=== PATIENT | female | born 1975 | race Caucasian/White ===

== ENCOUNTER 2019-02-26 09:27 | Emergency (ER) | payer OTHER ==
[2019-02-26 10:26] LABS: Basophils % 0.6 % (0-1.3); Eosinophils % 3.9 % (0-4.4); Hematocrit 45.2 % (36.0-45.0); MPV 8.7 fL (7.6-11.3); Monocytes % 6.3 % (3.3-12.3); RBC Red Blood Cell Count 5.11 M/uL (3.86-4.86)
[2019-02-26 10:30] LABS: Protime INR 0.95
[2019-02-26 10:46] LABS: ALT/SGPT 36 U/L (12-78); AST/SGOT 22 U/L (15-37); Albumin 4.1 g/dL (3.4-5.0); Alkaline Phosphatase 47 U/L (45-117); BUN Blood Urea Nitrogen 10 mg/dL (7-18); Bicarbonate 28 mmol/L (21-32); Bilirubin Direct 0.1 mg/dL (0-0.2); Bilirubin Total 0.6 mg/dL (0.2-1.0); Glucose Level 113 mg/dL (74-106); Magnesium 2.1 mg/dL (1.8-2.4); NT PRO-BNP 73 pg/mL (<125); Potassium 3.9 mmol/L (3.5-5.1); Protein, Total 7.5 g/dL (6.4-8.2); Sodium Level 141 mmol/L (136-145); Troponin (Emerg Dept Use Only) < 0.02 ng/mL (0.0-0.045)
--- NOTE | 2019-02-26 11:05 | RAD REPORT ---
EXAM DESCRIPTION: CT - Head Brain Wo Cont - 02/26/2019 10:28 am CLINICAL HISTORY: Headache, hypertension COMPARISON: None. TECHNIQUE: Axial 5 mm thick images of the head were obtained without IV contrast. All CT scans are performed using dose optimization technique as appropriate and may include automated exposure control or mA/KV adjustment according to patient size. FINDINGS: No mass lesion is present. No mass effect, edema or shift of midline structures. No acute cortical based infarction identifiable. Patient has bilateral basal ganglia mineralization. Findings are asymmetrically prominent on the left. There is a 3 millimeter area of hyperdensity (52 Hounsfield units) present at the left basal ganglia. The attenuation value is in the range of acute blood. Soler fransisco, basal ganglia mineralization can have a low attenuation value. Asymmetric basal ganglia calcific ation would be much more common than a focal hemorrhage superimposed on a site of basal ganglia calci fication. No prior CT imaging available for comparison. No abnormal extra-axial fluid collections. Ve ntricles are normal. Mastoid air cells and visualized portions of the paranasal sinuses are clear. No acute bony findings. IMPRESSION: No large hemorrhage or mass lesion identifiable. No edema or acute cortical process seen . Hyperdensity in the left basal ganglia is favored to be asymmetric bilateral basal ganglia mineraliza tion rather than focal hemorrhage superimposed on an area of mineralization. MR imaging could be performed if the patient has any stroke-like symptoms. The MR sequencing may pote ntially separate mineralization from calcium. However, the MR examination may be no more definitive t nance this CT study.
--- NOTE | 2019-02-26 11:17 | RAD REPORT ---
EXAM DESCRIPTION: Clara Single View02/26/2019 10:39 am CLINICAL HISTORY: Hypertension COMPARISON: 2016 FINDINGS: The lungs appear clear of acute infiltrate. The heart is normal size IMPRESSION: No acute abnormalities displayed
[2019-02-26] MEDS ORDERED: DEXAMETHASONE 10 MG/ML VIAL ONE (11:39)
[2019-02-26] MEDS ORDERED: METOCLOPRAMIDE 10 MG/2mL INJ ONE (11:39)
[2019-02-26] MEDS ORDERED: DIPHENHYDRAMINE 50 MG/ML VIAL ONE (11:40)
[2019-02-26] MEDS ORDERED: NA CHLORIDE 0.9% 0 ML ONE (11:40)
[2019-02-26] MEDS ORDERED: ONDANSETRON 4 MG/2 ML VIAL ONE (11:40)
[2019-02-26] MEDS ORDERED: LORazepam 2 MG/ML VIAL ONE (12:37)
--- NOTE | 2019-02-26 12:54 | RAD REPORT ---
EXAM DESCRIPTION: MRI - Brain Wo Cont - 02/26/2019 12:40 pm CLINICAL HISTORY: Headache, hypertension, left retro-orbital eye pain COMPARISON: CT study February 26 TECHNIQUE: Sagittal T1-weighted images were obtained along with axial PD, heavily T2-weighted and T2 -FLAIR images. Axial DWI and ADC mapping sequences were also obtained along with coronal heavily T2-w eighted images. FINDINGS: No acute infarction changes present. No signal abnormality on the diffusion weighted seque ncing. T1 weighted imaging shows no hyperintense signal in the left basal ganglia. No left basal gang shyla T2/IR signal abnormalities noted. There is no edema or shift of midline structures. No extra-axia l fluid collections. Bean-matter/white matter junction is preserved. Signal voids are seen as a tamara l finding in the major intracranial vessels. No globe or orbital content abnormality. Sella and suprasellar regions are normal. No abnormality to explain retro-orbital pain. Mastoid air cells are clear. Trace mucosal thickening in the ethmoid air cells and sphenoid sinus. No air-fluid levels. IMPRESSION: Negative non-contrast MRI of the Brain. Trace mucosal thickening in the ethmoid air cells and sphenoid sinus. No air-fluid level. The combined MRI and CT findings strongly favor that the left basal ganglia hyperdensity on the CT st udy is asymmetric but otherwise benign calcification rather than hemorrhage.
--- NOTE | 2019-02-26 13:11 | ER ---
Nurse's Notes [facility] Name: Kristen Yadav Age: 43 yrs Sex: Female : 1975 Arrival Date: 02/26/2019 Time: 09:29 Bed 17 Private MD: Alex Mcleod H Diagnosis: Headache;Hypertensive heart disease Presentation: 02/26 09:44 Presenting complaint: Patient states: reports high BP reading of 182/110 this morning, em also reports headache and became sweaty, denies chest pain, takes lisinopril 20 mg at night. Transition of care: patient was not received from another setting of care. Onset of symptoms was February 26, 2019. Risk Assessment: Do you want to hurt yourself or someone else? Patient reports no desire to harm self or others. Initial Sepsis Screen: Does the patient meet any 2 criteria? No. Patient's initial sepsis screen is negative. Does the patient have a suspected source of infection? No. Patient's initial sepsis screen is negative. Care prior to arrival: None. 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 - Social history:: Smoking status: Patient uses tobacco products, smokes one-half pack cigarettes per day. - Ebola Screening: : Patient negative for fever greater than or equal to 101.5 degrees Fahrenheit, and additional compatible Ebola Virus Disease symptoms Patient denies exposure to infectious person Patient denies travel to an Ebola-affected area in the 21 days before illness onset No symptoms or risks identified at this time. Screenin:48 Abuse screen: Denies threats or abuse. Nutritional screening: No deficits noted. em Tuberculosis screening: No symptoms or risk factors identified. Fall Risk None identified. Assessment: 09:48 General: Appears in no apparent distress. comfortable, Behavior is calm, cooperative, em Denies fever. Pain: Complains of pain in back of eyes Pain currently is 5 out of 10 on a pain scale. Pain began 3 hours ago. Neuro: Level of Consciousness is awake, alert, obeys commands, Oriented to person, place, time, situation, Moves all extremities. Gait is steady, Speech is normal, Facial symmetry appears normal. Cardiovascular: Reports diaphoresis, Denies chest pain, nausea, shortness of breath, Capillary refill < 3 seconds. Respiratory: Airway is patent Respiratory effort is even, unlabored, Respiratory pattern is regular, symmetrical. : Denies burning with urination, discharge, urinary frequency. Derm: Skin is intact, is healthy with good turgor, Skin is pink, warm \T\ dry. Musculoskeletal: Capillary refill < 3 seconds, Range of motion: intact in all extremities. 10:00 Reassessment: Patient appears in no apparent distress at this time. I agree with above iw assessment by Scott Ward LVN. 10:22 Reassessment: wheeled to CT via wheelchair. em 11:20 Reassessment: Patient appears in no apparent distress at this time. Patient and/or em family updated on plan of care and expected duration. Pain level reassessed. Patient is alert, oriented x 3, equal unlabored respirations, skin warm/dry/pink. 11:30 Reassessment: rates pain 2/10, reports headache is better, currently refuses em medications, provider notified. 12:21 Reassessment: equipment engineering technician reports pt unable to tolerate procedure, provider notified, give em verbal order for Ativan 0.5 mg given IV 1 time push. Vital Signs: 09:47 BP 178 / 96; Pulse 82; Resp 18; Pulse Ox 98% on R/A; Weight 86.18 kg; Height 5 ft. 3 em in. (160.02 cm); Pain 5/10; 11:20 BP 129 / 81; Pulse 71; Resp 18; Pulse Ox 99% on R/A; em 09:47 Body Mass Index 33.66 (86.18 kg, 160.02 cm) em ED Course: 09:29 Patient arrived in ED. as 09:30 Alex Mcleod DO is Private Physician. as 09:38 Scott Ward LVN is Primary Nurse. em 09:41 Bon Hand PA is PHCP. cp 09:41 Eugene Gan MD is Attending Physician. cp 09:47 Arm band placed on. em 09:48 Patient has correct armband on for positive identification. Bed in low position. Call em light in reach. personnel monitor on. Pulse ox on. NIBP on. 09:49 Triage completed. iw 10:15 Initial lab(s) drawn, by me, sent to lab. Inserted saline lock: 22 gauge in right em antecubital area, using aseptic technique. Blood collected. 10:30 CT Head Brain wo Cont In Process Unspecified. EDMS 10:36 X-ray completed. Portable x-ray completed in exam room. Patient tolerated procedure sw well. 10:46 XRAY Chest (1 view) In Process Unspecified. EDMS 12:43 MRI - Brain Wo Cont In Process Unspecified. EDMS 13:06 Alex Mcleod DO is Referral Physician. cp Administered Medications: 12:07 Not Given (Patient Refused): Decadron - Dexamethasone 10 mg IVP once iw 12:08 Not Given (Patient Refused): Reglan 10 mg IVP once; over 1 to 2 minutes iw 12:08 Not Given (Patient Refused): Zofran 4 mg IVP once; over 2 minutes iw 12:08 Not Given (Patient Refused): Benadryl 25 mg IVP once iw 12:08 Not Given (Patient Refused): NS 0.9% 1000 ml IV at 1 bolus Per protocol; 1000 mL bolus iw 12:30 Drug: Ativan 0.5 mg Route: IVP; Site: right antecubital; iw Outcome: 13:06 Discharge ordered by MD. cp 13:48 Patient left the ED. em Signatures: Dispatcher [employer] EDMS Scott Ward, ON AIR TALENT ON AIR TALENT em Tamra Zavala Irene, SANYA RN iw Gill Martinez Corey, PA PA cp
--- NOTE | 2019-02-26 13:11 | EDPHYS ---
Physician Documentation [facility] Name: Kristen Yadav Age: 43 yrs Sex: Female : 1975 Arrival Date: 02/26/2019 Time: 09:29 Bed 17 Private MD: Alex Mcleod H ED Physician Eugene Gan HPI: 02/26 10:15 This 43 yrs old Female presents to ER via Ambulatory with complaints of High cp Blood Pressure, Headache. 10:15 The patient has elevated blood pressure and discovered this at home, with a home cp device. Onset: The symptoms/episode began/occurred this morning. 10:15 Associated signs and symptoms: Pertinent positives: headache, sweaty, Pertinent cp negatives: chest pain, visual changes, vomiting. 10:15 Severity of symptoms: At its worst the blood pressure was 182 mm Hg, in the emergency cp department the blood pressure is improved, 178 mm Hg. 10:15 Patient reports recent change of blood pressure medication to lisinopril that she takes cp 20 mg at night. 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 - Social history:: Smoking status: Patient uses tobacco products, smokes one-half pack cigarettes per day. - Ebola Screening: : Patient negative for fever greater than or equal to 101.5 degrees Fahrenheit, and additional compatible Ebola Virus Disease symptoms Patient denies exposure to infectious person Patient denies travel to an Ebola-affected area in the 21 days before illness onset No symptoms or risks identified at this time. ROS: 10:20 Constitutional: Negative for body aches, chills, fever, poor PO intake. cp 10:20 Eyes: Negative for injury, pain, redness, and discharge. cp 10:20 ENT: Negative for drainage from ear(s), ear pain, sore throat, difficulty swallowing, difficulty handling secretions. 10:20 Neck: Negative for pain with movement, pain at rest, stiffness, tenderness. 10:20 Cardiovascular: Negative for chest pain, edema, palpitations. 10:20 Respiratory: Negative for cough, shortness of breath, wheezing. 10:20 Abdomen/GI: Negative for abdominal pain, nausea, vomiting, and diarrhea. 10:20 : Negative for urinary symptoms. 10:20 Neuro: Positive for headache, Negative for altered mental status, numbness, visual changes, weakness. 10:20 All other systems are negative. Exam: 09:49 ECG was reviewed by the Attending Physician. cp 10:40 Constitutional: The patient appears in no acute distress, alert, awake, cp non-diaphoretic, non-toxic, well developed, well nourished. 10:40 Head/Face: Normocephalic, atraumatic. Eyes: Pupils equal round and reactive to light, cp extra-ocular motions intact. Lids and lashes normal. Conjunctiva and sclera are non-icteric and not injected. Cornea within normal limits. Periorbital areas with no swelling, redness, or edema. ENT: Nares patent. No nasal discharge, no septal abnormalities noted. Tympanic membranes are normal and external auditory canals are clear. Oropharynx with no redness, swelling, or masses, exudates, or evidence of obstruction, uvula midline. Mucous membranes moist. 10:40 Neck: ROM/movement: is normal, is supple, without pain, no range of motions limitations, no nuchal rigidity. 10:40 Chest/axilla: Inspection: normal, Palpation: is normal, no crepitus, no tenderness. 10:40 Cardiovascular: Rate: normal, Rhythm: regular, Heart sounds: murmur, not appreciated, Edema: is not appreciated, JVD: is not appreciated. 10:40 Respiratory: the patient does not display signs of respiratory distress, Respirations: normal, no use of accessory muscles, no retractions, no splinting, no tachypnea, labored breathing, is not present, Breath sounds: are clear throughout, no decreased breath sounds, no stridor, no wheezing. 10:40 Abdomen/GI: Inspection: abdomen appears normal, Palpation: abdomen is soft and non-tender, in all quadrants. 10:40 Neuro: Orientation: to person, place \T\ time. Mentation: is normal, Cerebellar function: is grossly normal, Motor: moves all fours, strength is normal, Sensation: is normal. Vital Signs: 09:47 BP 178 / 96; Pulse 82; Resp 18; Pulse Ox 98% on R/A; Weight 86.18 kg; Height 5 ft. 3 em in. (160.02 cm); Pain 5/10; 11:20 BP 129 / 81; Pulse 71; Resp 18; Pulse Ox 99% on R/A; em 09:47 Body Mass Index 33.66 (86.18 kg, 160.02 cm) em MDM: 10:01 Patient medically screened. cp 13:05 Data reviewed: vital signs, nurses notes, lab test result(s), EKG, radiologic studies, cp CT scan, MRI, plain films, and as a result, I will discharge patient. 13:05 Counseling: I had a detailed discussion with the patient and/or guardian regarding: the cp historical points, exam findings, and any diagnostic results supporting the discharge/admit diagnosis, the presence of at least one elevated blood pressure reading (>120/80) during this emergency department visit, lab results, radiology results, the need for outpatient follow up, a family practitioner, to return to the emergency department if symptoms worsen or persist or if there are any questions or concerns that arise at home. Response to treatment: the patient's symptoms have markedly improved after treatment, VSS. Blood pressure improved and headache resolved. Will discharge to home for continued monitoring. 02/26 10:12 Order name: Basic Metabolic Panel; Complete Time: 11: cp 02/26 11:03 Interpretation: Normal except: GLUC 113; GFR 85. cp 02/26 10:12 Order name: CBC with Diff; Complete Time: 11: 02/26 11:03 Interpretation: Normal except: RBC 5.11; HGB 15.2; HCT 45.2; MCV 88.5; MCH 29.7. cp 02/26 10:12 Order name: LFT's; Complete Time: 11: cp 02/26 10:12 Order name: Magnesium; Complete Time: 11: cp 02/26 10:12 Order name: NT PRO-BNP; Complete Time: 11: cp 02/26 10:12 Order name: PT-INR; Complete Time: 11: cp 02/26 10:12 Order name: CT Head Brain wo Cont; Complete Time: 11: cp 02/26 10:12 Order name: Troponin (emerg Dept Use Only); Complete Time: 11:03 02/26 11:04 Interpretation: Reviewed. 02/26 10:12 Order name: XRAY Chest (1 view); Complete Time: 11:35 02/26 11:44 Order name: MRI - Brain Wo Cont; Complete Time: 13:04 02/26 10:12 Order name: EKG; Complete Time: 10:14 02/26 10:12 Order name: Cardiac monitoring; Complete Time: 10:15 02/26 10:12 Order name: EKG - Nurse/Tech; Complete Time: 10:15 02/26 10:12 Order name: IV Saline Lock; Complete Time: 10:15 02/26 10:12 Order name: Labs collected and sent; Complete Time: 10:15 02/26 10:12 Order name: O2 Per Protocol; Complete Time: 10:15 02/26 10:12 Order name: O2 Sat Monitoring; Complete Time: 10:15 EC:49 Rate is 74 beats/min. Rhythm is regular. UT interval is normal. QRS interval is normal. cp QT interval is normal. Interpreted by me. Reviewed by me. Administered Medications: 12:07 Not Given (Patient Refused): Decadron - Dexamethasone 10 mg IVP once iw 12:08 Not Given (Patient Refused): Reglan 10 mg IVP once; over 1 to 2 minutes iw 12:08 Not Given (Patient Refused): Zofran 4 mg IVP once; over 2 minutes iw 12:08 Not Given (Patient Refused): Benadryl 25 mg IVP once iw 12:08 Not Given (Patient Refused): NS 0.9% 1000 ml IV at 1 bolus Per protocol; 1000 mL bolus iw 12:30 Drug: Ativan 0.5 mg Route: IVP; Site: right antecubital; iw Disposition: 16:52 Co-signature as Attending Physician, Eugene Gan MD. Disposition: 02/26/19 13:06 Discharged to Home. Impression: Headache, Hypertensive heart disease. - Condition is Stable. - Discharge Instructions: General Headache Without Cause, How to Take Your Blood Pressure, Gaio-gc-Jsiu, Managing Your Hypertension. - Medication Reconciliation Form, Thank You Letter, Antibiotic Education, Prescription Opioid Use form. - Follow up: Mcleod, Betsy-Raf, DO; When: 2 - 3 days; Reason: Recheck today's complaints. - Problem is new. - Symptoms have improved. Signatures: Dispatcher [employer] EDScott Bhat, WASH MILL OPERATOR WASH MILL OPERATOR Ibis Griffith, RN RN Bon Bolton PA PA cp Starr, Gregory, MD MD gs Corrections: (The following items were deleted from the chart) 13:48 13:06 02/26/2019 13:06 Discharged to Home. Impression: Headache; Hypertensive heart em disease. Condition is Stable. Forms are Medication Reconciliation Form, Thank You Letter, Antibiotic Education, Prescription Opioid Use. Follow up: Alex Mcleod; When: 2 - 3 days; Reason: Recheck today's complaints. Problem is new. Symptoms have improved. cp
--- NOTE | 2019-02-26 13:23 | EKG ---
Test Date: 2019-02-26 Test Time: 09:45:40 Foundry Superintendant: ZEINAB MEASUREMENT RESULTS: Intervals: Rate: 74 PA: 144 QRSD: 96 QT: 420 QTc: 466 [place]: P: 45 PA: 144 QRS: 54 T: 72 INTERPRETIVE STATEMENTS: Normal sinus rhythm Possible Lateral infarct, age undetermined Abnormal ECG Compared to ECG 04/03/2011 16:08:36 Myocardial infarct finding now present Electronically Signed On 02-26-19 13:22:18 CDT by Efrem Fajardo
== END 2019-02-26 13:48 | disposition home or self-care (01) ==
LOC: ER 09:27
DX: I11.9 Hypertensive heart disease without heart failure (principal); I10 Essential (primary) hypertension; F17.210 Nicotine dependence, cigarettes, uncomplicated; Z88.2 Allergy status to sulfonamides
CPT/HCPCS: 36415; 70450; 70551; 71045; 80048; 80076; 83735; 83880; 84484; 85025; 85610; 93005; 96374; 99284; J1100; J2405; J2765; J7030

== ENCOUNTER 2020-04-23 18:00 | Emergency (ER) | payer OTHER ==
[2020-04-23] MEDS ORDERED: METOCLOPRAMIDE 10 MG/2mL INJ ONE (19:01)
[2020-04-23] MEDS ORDERED: NA CHLORIDE 0.9% 50 ML IV ONE (19:01)
--- NOTE | 2020-04-23 19:25 | RAD REPORT ---
EXAM DESCRIPTION: CT - Head Brain Wo Cont - 04/23/2020 7:13 pm CLINICAL HISTORY: headache, nausea COMPARISON: Head Brain Wo Cont dated 02/26/2019 TECHNIQUE: Axial 5 mm thick images of the head were obtained without IV contrast. All CT scans are performed using dose optimization technique as appropriate and may include automated exposure control or mA/KV adjustment according to patient size. FINDINGS: No intracranial hemorrhage, mass, edema or shift of mid-line structures. No acute infarcti on changes seen. No abnormal extra-axial fluid collections. Ventricles are normal. Physiologic basal ganglia calcifications are present. Mastoid air cells are clear. Patchy mucosal thickening in the ethmoid air cells. No acute bony findings. IMPRESSION: No intracranial abnormality identified. Patchy mucosal thickening in the ethmoid air cells.
[2020-04-23 19:32] LABS: Potassium 3.7 mmol/L (3.5-5.1)
--- NOTE | 2020-04-23 20:42 | EDPHYS ---
Physician Documentation [facility] Name: Kristen Yadav Age: 44 yrs Sex: Female : 1975 Arrival Date: 04/23/2020 Time: 18:01 Bed 15 Private MD: ED Physician Bon Shafer HPI: 04/23 18:45 This 44 yrs old Female presents to ER via Ambulatory with complaints of High jmm Blood Pressure, Dizziness, Eye Pain. 18:45 Onset: The symptoms/episode began/occurred today, noon. Modifying factors: The symptoms jmm are aggravated by. Associated signs and symptoms: Pertinent positives: headache, nausea. This is a 44 year old female with a history of htn that presents to the ED with complaints of right sided headache, nausea beginning today around noon. Patient has had migraines in the past but none since beginning cpap. . 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 - Social history:: Smoking status: Patient reports the use of cigarette tobacco products, smokes one-half pack cigarettes per day. ROS: 18:45 Constitutional: Negative for fever, chills, and weight loss, Cardiovascular: Negative jmm for chest pain, palpitations, and edema, Respiratory: Negative for shortness of breath, cough, wheezing, and pleuritic chest pain. 18:45 Neuro: Positive for headache. 18:45 All other systems are negative. Exam: 18:45 Constitutional: This is a well developed, well nourished patient who is awake, alert, jmm and in no acute distress. Head/Face: atraumatic. Eyes: EOMI, no conjunctival erythema appreciated ENT: Moist Mucus Membranes Neck: Trachea midline, Supple Chest/axilla: Normal chest wall appearance and motion. Cardiovascular: Regular rate and rhythm. No edema appreciated Respiratory: Normal respirations, no respiratory distress appreciated Abdomen/GI: Non distended, soft Back: Normal ROM Skin: General appearance color normal MS/ Extremity: Moves all extremities, no obvious deformities appreciated, no edema noted to the lower extremities Neuro: Awake and alert, normal gait Psych: Behavior is normal, Mood is normal, Patient is cooperative and pleasant Vital Signs: 18:06 BP 167 / 106; Pulse 85; Resp 15; Temp 98.2; Pulse Ox 100% ; Weight 81.65 kg; Pain 6/10; jl7 20:06 BP 122 / 100; Pulse 70; Resp 16; Pulse Ox 99% ; rr5 20:55 BP 133 / 86; Pulse 69; Resp 16; Temp 98; Pulse Ox 99% ; Pain 0/10; rr5 MDM: 18:26 Patient medically screened. alexandro 20:38 Data reviewed: vital signs, nurses notes, radiologic studies, CT scan. Counseling: I foreign had a detailed discussion with the patient and/or guardian regarding: the historical points, exam findings, and any diagnostic results supporting the discharge/admit diagnosis, radiology results, the need for outpatient follow up, to return to the emergency department if symptoms worsen or persist or if there are any questions or concerns that arise at home. ED course: Pain has resolved. CT negative. Most likely migraine with sinusitis component. Patient is advised to follow up with pcp and otherwise given strict return precautions. Patient understood and agrees with the plan of care. . 04/23 18:45 Order name: BMP; Complete Time: 19:33 [facility] 04/23 18:45 Order name: CT Head Brain wo Cont; Complete Time: 19:26 [facility] 04/23 18:45 Order name: Saline Lock; Complete Time: 19:01 [facility] Administered Medications: 19:01 Drug: Reglan 10 mg Route: IVP; Site: left antecubital; jd3 20:10 Follow up: Response: No adverse reaction rr5 Disposition: 04/24 12:00 Co-signature as Attending Physician, Bon Shafer MD I agree with the assessment and [facility] plan of care. Disposition: 04/23/20 20:42 Discharged to Home. Impression: Migraine, Headache, Acute ethmoidal sinusitis. - Condition is Stable. - Discharge Instructions: Migraine Headache, Sinusitis, Adult. - Medication Reconciliation Form, Thank You Letter, Antibiotic Education, Prescription Opioid Use form. - Follow up: Private Physician; When: 2 - 3 days; Reason: Recheck today's complaints, Continuance of care, Re-evaluation by your physician. Signatures: Dispatcher [employer] EDBon Benito MD MD cha Mickail, Joel, PA PA jmm Leal, Jahala RN RN jl7 Thomas Hsu RN RN jd3 Howard Mejia RN RN rr5 Corrections: (The following items were deleted from the chart) 04/23 20:59 20:42 04/23/2020 20:42 Discharged to Home. Impression: Migraine; Headache; Acute rr5 ethmoidal sinusitis. Condition is Stable. Forms are Medication Reconciliation Form, Thank You Letter, Antibiotic Education, Prescription Opioid Use. Follow up: Private Physician; When: 2 - 3 days; Reason: Recheck today's complaints, Continuance of care, Re-evaluation by your physician. foreign
--- NOTE | 2020-04-23 20:42 | ER ---
Nurse's Notes [facility] Name: Kristen Yadav Age: 44 yrs Sex: Female : 1975 Arrival Date: 04/23/2020 Time: 18:01 Bed 15 Private MD: Diagnosis: Migraine;Headache;Acute ethmoidal sinusitis Presentation: 04/23 18:06 Chief complaint: Patient states: BP was 189/101 about 30 minutes ago, reports MCGREGOR and jl7 nausea started today at noon, "I was sent home from work on for a fever and extreme fatigue. Had a COVID test on and [facility] called me today but I missed the call because I was asleep.". Coronavirus screen: fatigue, fever, headache, nausea, loss of taste or smell, Client presents with at least one sign or symptom that may indicate coronavirus-19. Standard/surgical mask placed on the client. Provider contacted for isolation considerations. Ebola Screen: No symptoms or risks identified at this time. Initial Sepsis Screen: Does the patient meet any 2 criteria? No. Patient's initial sepsis screen is negative. Does the patient have a suspected source of infection? No. Patient's initial sepsis screen is negative. Risk Assessment: Do you want to hurt yourself or someone else? Patient reports no desire to harm self or others. Onset of symptoms was April 20, 2020. Care prior to arrival: None. Transition of care: patient was not received from another setting of care. 18:06 Method Of Arrival: Ambulatory [facility] 18:06 Acuity: ELINA 3 jl7 Triage Assessment: 18:11 General: Appears in no apparent distress. uncomfortable, ill, Behavior is calm, jl7 cooperative, appropriate for age. Pain: Complains of pain in MCGREGOR Pain currently is 6 out of 10 on a pain scale. 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 - Social history:: Smoking status: Patient reports the use of cigarette tobacco products, smokes one-half pack cigarettes per day. Screenin:10 Abuse screen: Denies threats or abuse. Denies injuries from another. Nutritional rr5 screening: No deficits noted. Tuberculosis screening: No symptoms or risk factors identified. Fall Risk None identified. Total Rouse Fall Scale indicates No Risk (0-24 pts). Assessment: 19:10 General: Appears in no apparent distress. comfortable, Behavior is calm, cooperative. rr5 19:10 Pain: Complains of pain in head. Neuro: Level of Consciousness is awake, alert, obeys rr5 commands, Oriented to person, place, time, situation. Cardiovascular: Capillary refill < 3 seconds Patient's skin is warm and dry. Respiratory: Airway is patent Respiratory effort is even, unlabored, Respiratory pattern is regular, symmetrical. GI: Reports nausea. : No signs and/or symptoms were reported regarding the genitourinary system. EENT: Reports pain in eye. Derm: Skin is intact, Skin temperature is warm. Musculoskeletal: Circulation, motion, and sensation intact. Capillary refill < 3 seconds. 20:00 Reassessment: Patient appears in no apparent distress at this time. Patient is alert, rr5 oriented x 3, equal unlabored respirations, skin warm/dry/pink. 20:58 Reassessment: Patient appears in no apparent distress at this time. Patient is alert, rr5 oriented x 3, equal unlabored respirations, skin warm/dry/pink. discharge instruction given and complaint without complaint made. Patient denies pain at this time. Patient states feeling better. Patient states symptoms have improved. Vital Signs: 18:06 BP 167 / 106; Pulse 85; Resp 15; Temp 98.2; Pulse Ox 100% ; Weight 81.65 kg; Pain 6/10; jl7 20:06 BP 122 / 100; Pulse 70; Resp 16; Pulse Ox 99% ; rr5 20:55 BP 133 / 86; Pulse 69; Resp 16; Temp 98; Pulse Ox 99% ; Pain 0/10; rr5 ED Course: 18:01 Patient arrived in ED. as 18:11 Triage completed. jl7 18:11 Arm band placed on right wrist. [facility] 18:22 Jesus Brenner PA is PHCP. [facility] 18:22 Anderson Pantoja MD is Attending Physician. foreign 18:26 Attending Physician role handed off by Anderson Pantoja MD cha 18:26 Bon Shafer MD is Attending Physician. [facility] 18:29 Thomas Hsu, RN is Primary Nurse. jd3 19:01 Inserted saline lock: 20 gauge in left antecubital area, using aseptic technique. Blood jd3 collected. 19:10 Patient has correct armband on for positive identification. Placed in gown. Bed in low rr5 position. Call light in reach. Pulse ox on. NIBP on. 19:10 No provider procedures requiring assistance completed. rr5 19:14 CT Head Brain wo Cont In Process Unspecified. EDMS 20:56 IV discontinued, intact, bleeding controlled, No redness/swelling at site. Pressure rr5 dressing applied. Administered Medications: 19:01 Drug: Reglan 10 mg Route: IVP; Site: left antecubital; jd3 20:10 Follow up: Response: No adverse reaction rr5 Outcome: 20:42 Discharge ordered by . foreign 20:56 Discharged to home ambulatory. rr5 20:56 Condition: stable 20:56 Discharge instructions given to patient, Instructed on discharge instructions, follow up and referral plans. Demonstrated understanding of instructions, follow-up care. 20:59 Patient left the ED. rr5 Signatures: Dispatcher [employer] EDMS Bon Shafer MD MD cha Mickail, Joel, PA PA jmm Martinez, Amelia as Leal, Jahala, RN RN jl7 Thomas Hsu, RN RN jd3 Howard Mejia, RN RN rr5
== END 2020-04-23 20:59 | disposition home or self-care (01) ==
LOC: ER 18:00
DX: G43.909 Migraine, unspecified, not intractable, without status migrainosus (principal); J01.20 Acute ethmoidal sinusitis, unspecified; I10 Essential (primary) hypertension; F17.210 Nicotine dependence, cigarettes, uncomplicated; Z88.2 Allergy status to sulfonamides
CPT/HCPCS: 80048; 36415; 70450; J2765; 96374; 99284

== ENCOUNTER 2021-07-31 09:58 | Emergency (ER) | payer BC ==
--- OUTSIDE RECORDS SUMMARY | 2021-07-31 10:01 | XMS REPORT | Continuity of Care Document ---
:1975 Author Organization [facility] t Address [address] [place] [address] Care Team Providers Name Role Phone Unavailable Unavailable Unavailable Problems This patient has no known problems. Allergies, Adverse Reactions, Alerts This patient has no known allergies or adverse reactions. Medications This patient has no known medications. Procedures This patient has no known procedures. Encounters Start End Encounter Admission Attending Care Care Encounter Source Date/Time Date/Time Type Type Clinicians Facility Department ID 2021-07-30 2021-07-30 amb[id number] 2021-07-18 2021-07-18 [facility] [id number] [facility] 2021-07-11 2021-07-11 [facility] [id number] [facility] 2021-07-09 2021-07-09 [facility] [id number] [facility] 2021-06-13 2021-06-13 [facility] [id number] [facility] 2021-05-11 2021-05-11 [facility] [id number] [facility] 2021-04-18 2021-04-18 Out[facility] [id number] [facility] 2021-04-17 2021-04-17 [facility] [id number] [facility] 2021-04-03 2021-04-03 [facility] [id number] [facility] 2021-03-08 2021-03-08 [facility] [id number] [facility] 2021-02-12 2021-02-12 [facility] [id number] [facility] Results This patient has no known results.
--- NOTE | 2021-07-31 10:42 | ER ---
Nurse's Notes [facility] Name: Kristen Yadav Age: 45 yrs Sex: Female : 1975 Arrival Date: 07/31/2021 Time: 10:02 Bed Waiting Private MD: Diagnosis: ED Course: 07/31 10:02 Patient arrived in ED. mr Administered Medications: No medications were administered Outcome: 10:42 Patient left the ED. ss Signatures: Caitlin Li Shelby, RN RN ss
== END 2021-07-31 10:42 | disposition left against medical advice (07) ==
LOC: ER 09:58
DX: Z02.9 Encounter for administrative examinations, unspecified (principal)

== ENCOUNTER 2021-07-31 20:20 | Emergency (ER) | payer BC ==
--- OUTSIDE RECORDS SUMMARY | 2021-07-31 20:23 | XMS REPORT | Continuity of Care Document ---
:1975 Author Organization [facility] t Address [address] [place] [address] Care Team Providers Name Role Phone Unavailable [...] Clinicians Facility Department ID 2021-07-30 2021-07-30 amb[facility] [id number] 2021-07-18 2021-07-18 [facility] [id number] [facility] 2021-07-11 2021[facility]07-11 [facility] [id number] [facility] 2021-07-09 2021-07-09 [facility] [id number] [facility] 2021-06-13 2021-06-13 [facility] [id number] [facility] 2021-05-11 2021-05-11 [facility] [id number] [facility] 2021-04-18 2021-04-18 [facility] [id number] [facility] 2021-04-17 2021-04-17 [facility] [id number] [facility] 2021-04-03 2021-04-03 [facility] [id number] [facility] 2021-03-08 2021-03-08 [facility] [id number] [facility] 2021-02-12 2021-02-12 [facility] [id number] [facility] Results This patient has no known results.
[2021-07-31 21:54] LABS: Absolute Lymphocytes (CBC) 0.9 K/uL (0.7-4.9); Basophils % 0.4 % (0-1.3); Hematocrit 45.1 % (36.0-45.0); Lymphocytes % 27.5 % (15.3-44.8); MPV 8.5 fL (7.6-11.3); RBC Red Blood Cell Count 4.96 M/uL (3.86-4.86)
[2021-07-31] MEDS ORDERED: NA CHLORIDE 0.9% 1,000 ML ONE (21:55)
[2021-07-31 22:07] LABS: BUN Blood Urea Nitrogen 11 mg/dL (7-18); Bicarbonate 27 mmol/L (21-32); Glucose Level 118 mg/dL (74-106); Potassium 3.6 mmol/L (3.5-5.1); Sodium Level 142 mmol/L (136-145)
[2021-08-01 00:28] LABS: CSF Glucose 70 mg/dL (40-70)
[2021-08-01 00:30] LABS: Body Fluid Source CSF; Color of fluid Colorless (COLORLESS)
[2021-08-01 00:31] LABS: Appearance CLEAR (CLEAR)
[2021-08-01 00:47] LABS: Appearance CLEAR (CLEAR); Body Fluid Source CSF; Body Fluid WBC 0 /mm^3; Color of fluid Colorless (COLORLESS); Fluid Total Volume 8.6 ml
[2021-08-01 00:50] LABS: Body Fluid WBC 2 /mm^3
--- NOTE | 2021-08-01 01:00 | ER ---
Nurse's Notes [facility] Name: Kristen Yadav Age: 45 yrs Sex: Female : 1975 Arrival Date: 07/31/2021 Time: 20:23 Bed 19 Private MD: Diagnosis: Fever, unspecified;Viral syndrome Presentation: 07/31 20:45 Chief complaint: Patient states: Friday I began having a headache, dizzy, low grade ld1 fever. Friday night it jumped up to 103 - I have been alternating tylenol and ibuprofen, as soon as it wears off my fever jumps back up. I have tested negative for covid and flu yesterday at [facility], chest x ray was clear. Yesterday I began having severe neck and eye pain, when I turn my neck or move my neck pops. Coronavirus screen: Client presents with at least one sign or symptom that may indicate coronavirus-19. Standard/surgical mask placed on the client. Ebola Screen: No symptoms or risks identified at this time. Initial Sepsis Screen: Does the patient meet any 2 criteria? No. Patient's initial sepsis screen is negative. Does the patient have a suspected source of infection? No. Patient's initial sepsis screen is negative. Risk Assessment: Do you want to hurt yourself or someone else? Patient reports no desire to harm self or others. Onset of symptoms was July 31, 2021. 20:45 Method Of Arrival: Ambulatory ld1 20:45 Acuity: ELINA 3 ld1 Triage Assessment: 20:48 General: Appears in no apparent distress. uncomfortable, Behavior is calm, cooperative, ld1 appropriate for age. Pain: Complains of pain in neck Pain does not radiate. Pain currently is 9 out of 10 on a pain scale. Quality of pain is described as throbbing, Pain began suddenly, Is continuous. EENT: No signs and/or symptoms were reported regarding the EENT system. Neuro: Level of Consciousness is awake, alert, obeys commands, Oriented to person, place, time, situation, Appropriate for age. Cardiovascular: Capillary refill < 3 seconds Patient's skin is warm and dry. Respiratory: Airway is patent Respiratory effort is even, unlabored, Respiratory pattern is regular, symmetrical. GI: Abdomen is round non-distended. : No signs and/or symptoms were reported regarding the genitourinary system. Derm: No signs and/or symptoms reported regarding the dermatologic system. Musculoskeletal: No signs and/or symptoms reported regarding the musculoskeletal system. 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 - Social history:: Smoking status: Patient reports the use of cigarette tobacco products, smokes one pack cigarettes per day. Patient/guardian denies using alcohol. - Family history:: not pertinent. - Hospitalizations: : No recent hospitalization is reported. Screenin/01 00:03 Abuse screen: Denies threats or abuse. Denies injuries from another. Nutritional sm5 screening: No deficits noted. Tuberculosis screening: No symptoms or risk factors identified. Fall Risk No fall in past 12 months (0 pts). No secondary diagnosis (0 pts). IV access (20 points). Ambulatory Aid- None/Bed Rest/Nurse Assist (0 pts). Gait- Normal/Bed Rest/Wheelchair (0 pts) Mental Status- Oriented to own ability (0 pts). Total Rouse Fall Scale indicates No Risk (0-24 pts). Assessment: 07/31 21:00 General: Appears in no apparent distress. Pain: Complains of pain in neck. Neuro: Level sm5 of Consciousness is awake, alert, Oriented to person, place, time, situation. Cardiovascular: Rhythm is regular. Respiratory: Airway is patent Trachea midline Respiratory effort is even, unlabored. 22:00 Reassessment: No changes from previously documented assessment. sm5 23:00 Reassessment: No changes from previously documented assessment. Patient and/or family sm5 updated on plan of care and expected duration. Pain level reassessed. 08/01 00:00 Reassessment: No changes from previously documented assessment. sm5 01:00 Reassessment: No changes from previously documented assessment. sm5 Vital Signs: 07/31 20:45 BP 166 / 95; Pulse 87; Resp 18; Temp 99.1(TE); Pulse Ox 95% on R/A; Weight 74.84 kg; ld1 Height 5 ft. 3 in. (160.02 cm); Pain 0/10; 21:00 BP 139 / 69; Pulse 65; Resp 16; Pulse Ox 100% ; sm5 22:00 BP 137 / 70; Pulse 62; Resp 16; Pulse Ox 99% ; sm5 23:00 BP 130 / 65; Pulse 62; Resp 16; Temp 98.6(O); Pulse Ox 100% ; sm5 12 00:00 BP 136 / 75; Pulse 66; Resp 17; Pulse Ox 99% ; sm5 00:00 BP 137 / 78; Pulse 61; Resp 18; Pulse Ox 96% ; 5 07/31 20:45 Body Mass Index 29.23 (74.84 kg, 160.02 cm) ld1 ED Course: 07/31 20:23 Patient arrived in ED. wm 20:48 Triage completed. ld1 20:48 Arm band placed on right wrist. ld1 21:11 Anderson Pantoja MD is Attending Physician. rn 21:11 Olinda Coronado RN is Primary Nurse. sm5 21:47 XRAY Chest (1 view) In Process Unspecified. EDMS 21:47 Blood Culture Adult (2) Sent. sm5 21:47 Procalcitonin Sent. sm5 21:48 Basic Metabolic Panel Sent. sm5 21:48 CBC with Diff Sent. sm5 22:02 Inserted saline lock: 20 gauge in right antecubital area, using aseptic technique. sm5 Blood collected. 22:47 CT Head Brain wo Cont In Process Unspecified. EDMS 22:47 CT Soft Tissue Neck W/contr In Process Unspecified. EDMS 12 00:02 Csf Culture Sent. sm5 00:02 Fluid Cell Count,Body Sent. sm5 00:02 Spinal Fluid Profile Sent. sm5 00:04 Assist provider with lumbar puncture: Set up LP tray. Performed by Anderson Pantoja MD CSF 5 Sample collected. Sample sent to lab. Puncture site dressed with band aid, Procedure was successful. Patient tolerated well. 00:05 Bed in low position. Call light in reach. Side rails up X2. sm5 01:21 IV discontinued, intact, bleeding controlled, No redness/swelling at site. Pressure sm5 dressing applied. Administered Medications: 07/31 22:00 Drug: NS 0.9% 1000 ml Route: IV; Rate: 1000 ml; Site: right antecubital; 5 22:50 Follow up: IV Status: Completed infusion; IV Intake: 1000ml 5 Intake: 22:50 IV: 1000ml; Total: 1000ml. 5 Outcome: 08/01 00:59 Discharge ordered by . rn 01:21 Discharged to home ambulatory. 5 01:21 Condition: good 01:21 Discharge instructions given to patient, Instructed on discharge instructions, Demonstrated understanding of instructions, follow-up care, Prescriptions given X 1. 01:23 Patient left the ED. 5 Signatures: Dispatcher [employer] EDMS Anderson Pantoja MD MD rn Dibbern, Lauren, RN RN ld1 Afshan Pisano Sarah, RN RN 5 Corrections: (The following items were deleted from the chart) 07/31 20:48 20:48 PSHx: Unable to Obtain; alin ogden
--- NOTE | 2021-08-01 01:00 | EDPHYS ---
Physician Documentation [facility] Name: Kristen Yadav Age: 45 yrs Sex: Female : 1975 Arrival Date: 07/31/2021 Time: 20:23 Bed 19 Private MD: ED Physician Anderson Pantoja HPI: 07/31 21:28 This 45 yrs old Female presents to ER via Ambulatory with complaints of Stiff rn Neck, Fever - 105*. 21:28 The patient or guardian complains of pain. The symptoms are located on the neck. Onset: rn The symptoms/episode began/occurred 3 day(s) ago. Associated signs and symptoms: Pertinent positives: chills, fever, headache, Pertinent negatives: bladder incontinence, bowel incontinence, numbness, tingling, vomiting. The pain does not radiate. Modifying factors: The symptoms are alleviated by OTC meds, the symptoms are aggravated by movement, Extension of neck. Severity of symptoms: At their worst the symptoms were moderate, in the emergency department the symptoms are unchanged. The patient has not experienced similar symptoms in the past. The patient has been recently seen by a physician:. Patient reports 3 days of not feeling well. Began with fever and headache, myalgias, seems to have settled into the neck. Reports pain to the neck and feels full, worse with extension not so much with flexion. Seen at [facility] urgent care and had a negative flu and Covid. Then seen at [facility] yesterday with a negative work-up. Fluid was repeated and was negative as well. Urine negative. Told likely had a viral syndrome and discharged. No LP performed. Patient denies sore throat. Reports myalgias from the base of the skull to the mid back and legs. No known sick contacts. No travel. No trauma.. 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 - Social history:: Smoking status: Patient reports the use of cigarette tobacco products, smokes one pack cigarettes per day. Patient/guardian denies using alcohol. - Family history:: not pertinent. - Hospitalizations: : No recent hospitalization is reported. ROS: 21:28 Constitutional: Positive for fever/chills/myalgias Eyes: Negative for injury, pain, rn redness, and discharge, ENT: Negative for injury, pain, and discharge, Neck: Positive for neck pain and subjective fullness or swelling Cardiovascular: Negative for chest pain, palpitations, and edema, Respiratory: Negative for shortness of breath, cough, wheezing, and pleuritic chest pain, Abdomen/GI: Negative for abdominal pain, nausea, vomiting, diarrhea, and constipation, Back: Positive for back pain MS/Extremity: Negative for injury and deformity, Skin: Negative for injury, rash, and discoloration, Neuro: Negative for numbness, tingling, and seizure. Exam: 21:28 Constitutional: This is a well developed, well nourished patient who is awake, alert, rn and in no acute distress. Head/Face: Normocephalic, atraumatic. Eyes: Pupils equal round and reactive to light, extra-ocular motions intact. Lids and lashes normal. Conjunctiva and sclera are non-icteric and not injected. Cornea within normal limits. Periorbital areas with no swelling, redness, or edema. ENT: No stridor Neck: Trachea midline, no masses palpated. Nontender cervical lymphadenopathy present. No pain with flexion. Mild pain with extension of neck both actively and passively. No crepitus Cardiovascular: Regular rate and rhythm. No pulse deficits. Respiratory: No increased work of breathing, no retractions or nasal flaring. Abdomen/GI: Soft, non-tender Skin: Warm, dry with normal turgor. Normal color with no rashes, no lesions, and no evidence of cellulitis. MS/ Extremity: Pulses equal, no cyanosis. Neuro: Awake and alert, GCS 15, oriented to person, place, time, and situation. Cranial nerves II-XII grossly intact. Motor strength 5/5 in all extremities. Sensory grossly intact. Cerebellar exam normal. Vital Signs: 20:45 BP 166 / 95; Pulse 87; Resp 18; Temp 99.1(TE); Pulse Ox 95% on R/A; Weight 74.84 kg; ld1 Height 5 ft. 3 in. (160.02 cm); Pain 0/10; 21:00 BP 139 / 69; Pulse 65; Resp 16; Pulse Ox 100% ; sm5 22:00 BP 137 / 70; Pulse 62; Resp 16; Pulse Ox 99% ; sm5 23:00 BP 130 / 65; Pulse 62; Resp 16; Temp 98.6(O); Pulse Ox 100% ; sm5 08/01 00:00 BP 136 / 75; Pulse 66; Resp 17; Pulse Ox 99% ; sm5 00:00 BP 137 / 78; Pulse 61; Resp 18; Pulse Ox 96% ; sm5 07/31 20:45 Body Mass Index 29.23 (74.84 kg, 160.02 cm) ld1 Procedures: 07/31 23:53 Lumbar Puncture: Patient placed in left lateral decubitus position. Prepped with rn Betadine. Draped using sterile technique. Collected 8 ml's of clear fluid. Sample sent to lab. Puncture site dressed with band aid, Patient tolerated well. Single stick, anesthesia with lidocaine. MDM: 21:11 Patient medically screened. rn 08/01 00:57 Differential diagnosis: viral meningitis, Meningitis, deep space neck infection, viral rn syndrome. Data reviewed: vital signs, nurses notes, lab test result(s), radiologic studies, CT scan, and as a result, I will discharge patient. Counseling: I had a detailed discussion with the patient and/or guardian regarding: the historical points, exam findings, and any diagnostic results supporting the discharge/admit diagnosis, lab results, radiology results, the need for outpatient follow up, to return to the emergency department if symptoms worsen or persist or if there are any questions or concerns that arise at home. Response to treatment: the patient's symptoms have markedly improved after treatment, and as a result, I will discharge patient. Special discussion: I discussed with the patient/guardian in detail that at this point there is no indication for admission to the hospital. It is understood, however, that if the symptoms persist or worsen the patient needs to return immediately for re-evaluation. ED course: Lumbar puncture results negative for meningitis. Tube 2 shows 0 WBCs and 0 RBCs. This facility no longer does direct antigen testing but spinal fluid profile and cell count does not indicate meningitis. CT neck soft tissue did not show evidence of deep space neck infection. CT head was negative. Has already been tested for Covid and flu. Will DC home as feels better as most likely viral syndrome and given return precautions.. 07/31 21:23 Order name: CBC with Diff; Complete Time: 22:21 rn 07/31 21:23 Order name: Basic Metabolic Panel; Complete Time: 22:21 rn 07/31 21:23 Order name: Procalcitonin; Complete Time: 22:21 rn 07/31 21:23 Order name: Blood Culture Adult (2) rn 07/31 23:53 Order name: Csf Culture rn 07/31 23:53 Order name: Fluid Cell Count,Body; Complete Time: 00:55 rn 07/31 21:23 Order name: IV Start; Complete Time: 21:48 rn 07/31 21:23 Order name: CT Head Brain wo Cont rn 07/31 21:23 Order name: CT Soft Tissue Neck W/contr rn 07/31 21:23 Order name: XRAY Chest (1 view) rn 07/31 23:53 Order name: Spinal Fluid Profile; Complete Time: 00:55 rn 07/31 23:53 Order name: LP Consents; Complete Time: 23:58 rn 07/31 23:53 Order name: LP Setup; Complete Time: 23:59 rn Administered Medications: 07/31 22:00 Drug: NS 0.9% 1000 ml Route: IV; Rate: 1000 ml; Site: right antecubital; sm5 22:50 Follow up: IV Status: Completed infusion; IV Intake: 1000ml sm5 Disposition Summary: 08/01/21 00:59 Discharge Ordered Location: Home rn Problem: new rn Symptoms: have improved rn Condition: Stable rn Diagnosis - Fever, unspecified rn - Viral syndrome rn Followup: rn - With: Private Physician - When: As needed - Reason: Recheck today's complaints, Re-evaluation by your physician Discharge Instructions: - Discharge Summary Sheet rn - Fever, Adult rn - Lumbar Puncture rn Forms: - Medication Reconciliation Form rn - Thank You Letter rn - Antibiotic learning and development officer - Prescription Opioid Use rn Prescriptions: - Zithromax Z-Efraín 250 mg Oral Tablet - take 1 tablet by ORAL route as directed for 5 days Day 1 - take two (2) tablets rn one time. Day 2, 3, 4 , 5 take one (1) tablet once daily.; 6 tablet; Refills: 0, Product Selection Permitted Signatures: Dispatcher [employer] Anderson Collier MD MD rn Dibbern, Lauren, RN RN ld1 Olinda Coronado RN RN sm5 Corrections: (The following items were deleted from the chart) 20:48 20:48 PSHx: Unable to Obtain; ld1 ld1
[2021-08-01 01:59] VITALS: TEMP 98.6
[2021-08-01 02:01] VITALS: BP 137/78; O2SAT 96
--- NOTE | 2021-08-01 19:02 | RAD REPORT ---
EXAM DESCRIPTION: CT - Head Brain Wo Cont - 08/01/2021 6:14 am CLINICAL HISTORY: Fever, headache. TECHNIQUE: Axial, coronal, and sagittal images through the brain were performed in the absence of in travenous contrast. This exam was performed according to our departmental dose-optimization program w hich includes use of Automated Exposure Control, adjustment of the mA and/or kV according to patient size and/or use of iterative reconstruction technique. COMPARISON: None. FINDINGS: The brain parenchyma appears unremarkable. There is no intra-axial or extra-axial bleed se en. There is no mass or mass effect. The ventricles are unremarkable. The orbital contents appear unr emarkable. Faint chronic bilateral basal ganglia calcifications. Moderate ethmoid air cell mucosal thickening. Mild mucosal thickening in the maxillary and sphenoid s inuses. The remaining visualized paranasal sinuses and mastoid air cells are patent. No acute fractur e is identified. IMPRESSION: 1. No acute intracranial abnormality identified. 2. Paranasal sinus disease. No air-fluid levels identified. Electronically signed by: Kim Lutz MD 07/31/2021 11:13 PM DIRECTOR SPEECH LANGUAGE Due to temporary technical issues with the PACS/Fluency reporting system, reports are being signed by the in house radiologists without review as a courtesy to insure prompt reporting. The interpreting radiologist is fully responsible for the content of the report.
--- NOTE | 2021-08-01 19:04 | RAD REPORT ---
EXAM DESCRIPTION: CT - Soft Tissue Neck W/Contr - 08/01/2021 6:13 am CLINICAL HISTORY: Fever, painful neck with extension, evalfor deep infection. COMPARISON: None. TECHNIQUE: CT of the neck was performed following intravenous administration of iodinated contrast. Axial, coronal, and sagittal reconstructions were created and sent to PACS. This exam was performed according to our departmental dose-optimization program, which includes autom ated exposure control, adjustment of the mA and/or kV according to patient size and/or use of iterati ve reconstruction technique. FINDINGS: There is no prevertebral edema or fluid collection. Thin epiglottis. Mildly prominent left sided neck lymph nodes. No fluid collections identified. No acute findings in the lung apices. No ab normal enhancement identified in the visualized portions of the brain parenchyma. Paranasal sinus muc osal thickening, as described on the head CT. Left thyroid lobe 0.5 cm nodule (no follow-up imaging i s recommended). Unremarkable appearance of the salivary glands. No concerning osseous abnormality. Mi ldly prominent left sided neck lymph nodes. IMPRESSION: 1. No fluid collections identified. 2. Mildly prominent left sided neck lymph nodes, likely reactive. Electronically signed by: Kim Lutz MD 07/31/2021 11:17 PM AUDIO VISUAL SPECIALIST Due to temporary technical issues with the PACS/Fluency reporting system, reports are being signed by the in house radiologists without review as a courtesy to insure prompt reporting. The interpreting radiologist is fully responsible for the content of the report.
--- NOTE | 2021-08-01 19:05 | RAD REPORT ---
EXAM DESCRIPTION: RAD - Chest Single View - 07/31/2021 9:47 pm CLINICAL HISTORY: Fever, sob COMPARISON: None. TECHNIQUE: AP Chest. FINDINGS: Normal cardiac size. Pulmonary vasculature appears normal. Normal cardiomediastinal contou rs. Lungs are clear. Pleural spaces are clear. Unremarkable soft tissues and bones. IMPRESSION: 1. Negative chest Electronically signed by: Mily Lozano DO 07/31/2021 10:27 PM INSTRUMENT MAKER Due to temporary technical issues with the PACS/Fluency reporting system, reports are being signed by the in house radiologists without review as a courtesy to insure prompt reporting. The interpreting radiologist is fully responsible for the content of the report.
== END 2021-08-01 01:23 | disposition home or self-care (01) ==
LOC: ER 20:20
PROC: 009U3ZX Drainage of Spinal Canal, Percutaneous Approach, Diagnostic (ICD-10-PCS; principal; 2021-07-31)
DX: B34.9 Viral infection, unspecified (principal); I10 Essential (primary) hypertension; Z88.2 Allergy status to sulfonamides
CPT/HCPCS: 87040 ×2; 87070; 85025; 80048; 36415; 89050 ×2; 84157; 82945; 84145; 70450; 70491; 71045; 62270; 96360; 99284; Q9967; J7030

== ENCOUNTER 2021-08-04 07:02 | Emergency (ER) | payer BC ==
--- OUTSIDE RECORDS SUMMARY | 2021-08-04 07:05 | XMS REPORT | Continuity of Care Document ---
:1975 Author Organization [facility] t Address [address] [place] [address] Care Team Providers Name Role Phone Unavailable [...] Clinicians Facility Department ID 2021-07-30 2021-07-30 ambulatory [facility] [id number] 00[facility]00 00[facility]00:00 [facility] 2021-07-18 2021-07-18 ambulatory [facility] [id number] 00[facility]00 00[facility]00 [facility] 2021-07-11 2021-07-11 ambulatory [facility] [id number] [facility] 2021-07-09 2021-07-09 ambulatory [facility] [id number] [facility] 2021-06-13 2021-06-13 Outpatient [facility] [id number] [facility] 2021-05-11 2021-05-11 Outpatient [facility] [id number] [facility] 2021-04-18 2021-04-18 Outpatient [facility] [id number] [facility] 2021-04-17 2021-04-17 Outpatient [facility] [id number] [facility] 2021-04-03 2021-04-03 Outpatient [facility] [id number] [facility] 2021-03-08 2021-03-08 Outpatient [facility] [id number] [facility] 2021-02-12 2021-02-12 [facility]patient [facility] [id number] [facility] Results This patient has no known results.
[2021-08-04] MEDS ORDERED: NA CHLORIDE 0.9% 1,000 ML ONE (07:43)
[2021-08-04] MEDS ORDERED: dexAMETHasone 10 MG/ML VIAL ONE (07:43)
[2021-08-04] MEDS ORDERED: METOCLOPRAMIDE 10 MG/2mL INJ ONE (07:43)
[2021-08-04] MEDS ORDERED: DIPHENHYDRAMINE 50 MG/ML VIAL ONE (07:43)
[2021-08-04] MEDS ORDERED: KETOROLAC 30 MG/ML INJ ONE (07:43)
--- NOTE | 2021-08-04 08:38 | ER ---
Nurse's Notes [facility] Name: Kristen Yadav Age: 45 yrs Sex: Female : 1975 Arrival Date: 08/04/2021 Time: 07:03 Bed 15 Private MD: Diagnosis: Headache Presentation: 08/04 07:29 Chief complaint: Patient states: Severe headache after spinal tap Friday. Coronavirus ss screen: Client denies travel out of the [place] in the last 14 days. Ebola Screen: Patient denies exposure to infectious person. Patient denies travel to an Ebola-affected area in the 21 days before illness onset. Initial Sepsis Screen: Does the patient meet any 2 criteria? No. Patient's initial sepsis screen is negative. Does the patient have a suspected source of infection? No. Patient's initial sepsis screen is negative. Risk Assessment: Do you want to hurt yourself or someone else? Patient reports no desire to harm self or others. Onset of symptoms was August 03, 2021. 07:29 Method Of Arrival: Ambulatory ss 07:29 Acuity: ELINA 3 ss Triage Assessment: 07:40 Headache History: The patient has had previous headaches and this one is similar to [facility] previous episodes, and this one is different than previous episodes. General: Appears uncomfortable, well groomed, well developed, well nourished. 07:40 Pain: Complains of pain in occipital area and base of the skull Pain began 2-3 days jh6 ago. Neuro: No deficits noted. 09:02 Pain: Also complains of. Pain: Denies pain. [facility] Historical: - Allergies: 07:32 Sulfa (Sulfonamide Antibiotics); - Home Meds: 07:32 lisinopril 20 mg Oral tab 1 tab once daily [Active]; - PMHx: 07:32 Hypertension; ss - Immunization history:: Adult Immunizations up to date. - Social history:: Patient/guardian denies using Smoking status: Patient/guardian denies using. Screenin:37 Abuse screen: Denies threats or abuse. Nutritional screening: No deficits noted. 6 Tuberculosis screening: No symptoms or risk factors identified. Fall Risk None identified. Assessment: 07:32 General: Appears uncomfortable, well groomed, well developed, well nourished, Behavior jh6 is calm, cooperative, Reports Headache that has been present for multiple days. States that the pain is not different, just worse. States no fever or N/V. Pain: Complains of pain in occipital area and base of the skull Pain does not radiate. Pain currently is 10 out of 10 on a pain scale. Quality of pain is described as dull. Neuro: No deficits noted. 08:37 Reassessment: Patient and/or family updated on plan of care and expected duration. Pain jh6 level reassessed. Patient states feeling better. Patient states symptoms have improved. Vital Signs: 07:35 BP 118 / 112; Pulse 79; Resp 18; Temp 97.8(O); Pulse Ox 100% on R/A; Pain 10/10; jh6 07:42 BP 159 / 92; kb 08:37 BP 125 / 89; Pulse 76; Resp 16; Pulse Ox 100% on R/A; Pain 1/10; jh6 [place] Coma Score: 07:42 Eye Response: spontaneous(4). Verbal Response: oriented(5). Motor Response: obeys kb commands(6). Total: 15. ED Course: 07:03 Patient arrived in ED. ds1 07:05 [facility] kb 07:05 Anderson Pantoja MD is Attending Physician. kb 07:32 Triage completed. ss 07:32 Mitzy Acosta, RN is Primary Nurse. jh6 07:32 Arm band placed on right wrist. ss 07:40 Call light in reach. Side rails up X 1. jh6 09:02 No provider procedures requiring assistance completed. IV discontinued, intact, jh6 bleeding controlled, No redness/swelling at site. Pressure dressing applied. Administered Medications: 07:45 Drug: NS 0.9% 1000 ml Route: IV; Rate: 1000 ml; Site: right antecubital; jh6 08:36 Follow up: IV Status: Completed infusion jh6 07:45 Drug: Ketorolac 15 mg Route: IVP; Site: right antecubital; jh6 08:36 Follow up: Response: Pain is decreased jh6 07:45 Drug: Reglan (metoCLOPramide) 10 mg Route: IVP; Site: right antecubital; jh6 08:36 Follow up: Response: Pain is decreased jh6 07:45 Drug: Benadryl (diphenhydrAMINE) 12.5 mg Route: IVP; Site: right antecubital; 6 08:36 Follow up: Response: Pain is decreased 6 07:45 Drug: Decadron - Dexamethasone 10 mg Route: IVP; Site: left antecubital; 6 08:35 Follow up: Response: Pain is decreased [facility] Outcome: 08:38 Discharge ordered by MD. josue 09:03 Discharged to home [facility] 09:03 Condition: good 09:03 Discharge instructions given to patient, Instructed on discharge instructions, follow up and referral plans. Demonstrated understanding of instructions, follow-up care. 09:03 Patient left the ED. [facility] Signatures: Yessica Felix, NAMAN-C NAMAN-Ana Rosa Ga ds1 Belkis Thompson, RN RN Mitzy Acosta RN RN jh6
--- NOTE | 2021-08-04 08:39 | EDPHYS ---
Physician Documentation [facility] Name: Kristen Yadav Age: 45 yrs Sex: Female : 1975 Arrival Date: 08/04/2021 Time: 07:03 Bed 15 Private MD: ED Physician Anderson Pantoja HPI: 08/04 07:42 This 45 yrs old Female presents to ER via Ambulatory with complaints of Headache. kb 07:42 The patient complains of pain to the left base of the skull and right base of the kb skull. The patient describes the headache as constant. 08:00 Onset: The symptoms/episode began/occurred 5 day(s) ago. Associated signs and symptoms: kb Pertinent positives: neck stiffness. Severity of symptoms: At its worst the pain was moderate, in the emergency department the pain is unchanged. Headache History: The patient has had previous headaches. The symptoms are alleviated by nothing. the symptoms are aggravated by nothing. The patient has not experienced similar symptoms in the past. The patient has been recently seen at the [facility] Emergency Department, last week. 08:25 Pt reports neck and base of head pain that started last week, became worse after LP kb done 5 days ago. LP and cultures were negative, as was the rest of her workup. pt was sent home on antibiotics. Pt states fever and other symptoms have resolved, but headache remains. . Historical: - Allergies: 07:32 Sulfa (Sulfonamide Antibiotics); ss - Home Meds: 07:32 lisinopril 20 mg Oral tab 1 tab once daily [Active]; ss - PMHx: 07:32 Hypertension; ss - Immunization history:: Adult Immunizations up to date. - Social history:: Patient/guardian denies using Smoking status: Patient/guardian denies using. ROS: 07:42 Constitutional: Negative for fever, chills, and weight loss. kb 07:42 Neuro: Positive for headache. 07:42 All other systems are negative. Exam: 07:42 Constitutional: This is a well developed, well nourished patient who is awake, alert, kb and in no acute distress. Head/Face: Normocephalic, atraumatic. Eyes: Pupils equal round and reactive to light, extra-ocular motions intact. Lids and lashes normal. Conjunctiva and sclera are non-icteric and not injected. Cornea within normal limits. Periorbital areas with no swelling, redness, or edema. ENT: Moist Mucous membranes Cardiovascular: Regular rate and rhythm with a normal S1 and S2. No gallops, murmurs, or rubs. No pulse deficits. Respiratory: Respirations even and unlabored. No increased work of breathing, no retractions or nasal flaring. Skin: Warm, dry with normal turgor. Normal color. MS/ Extremity: Pulses equal, no cyanosis. Neurovascular intact. Full, normal range of motion. Neuro: Awake and alert, GCS 15, oriented to person, place, time, and situation. Moves all extremities. Normal gait. Psych: Awake, alert, with orientation to person, place and time. Behavior, mood, and affect are within normal limits. Vital Signs: 07:35 BP 118 / 112; Pulse 79; Resp 18; Temp 97.8(O); Pulse Ox 100% on R/A; Pain 10/10; [facility] 07:42 BP 159 / 92; kb 08:37 BP 125 / 89; Pulse 76; Resp 16; Pulse Ox 100% on R/A; Pain 1/10; 6 [place] Coma Score: 07:42 Eye Response: spontaneous(4). Verbal Response: oriented(5). Motor Response: obeys kb commands(6). Total: 15. MDM: 07:26 Patient medically screened. 07:42 Data reviewed: vital signs, nurses notes. Data interpreted: Pulse oximetry: on room air kb is 100 %. Interpretation: normal. 08:37 Counseling: I had a detailed discussion with the patient and/or guardian regarding: the kb historical points, exam findings, and any diagnostic results supporting the discharge/admit diagnosis, the need for outpatient follow up, a family practitioner, to return to the emergency department if symptoms worsen or persist or if there are any questions or concerns that arise at home. Response to treatment: the patient's symptoms have resolved after treatment, the patient's pain is gone. 08/04 07:32 Order name: IV Start; Complete Time: 08:35 kb Administered Medications: 07:45 Drug: NS 0.9% 1000 ml Route: IV; Rate: 1000 ml; Site: right antecubital; [facility] 08:36 Follow up: IV Status: Completed infusion jh6 07:45 Drug: Ketorolac 15 mg Route: IVP; Site: right antecubital; jh6 08:36 Follow up: Response: Pain is decreased jh6 07:45 Drug: Reglan (metoCLOPramide) 10 mg Route: IVP; Site: right antecubital; jh6 08:36 Follow up: Response: Pain is decreased jh6 07:45 Drug: Benadryl (diphenhydrAMINE) 12.5 mg Route: IVP; Site: right antecubital; jh6 08:36 Follow up: Response: Pain is decreased jh6 07:45 Drug: Decadron - Dexamethasone 10 mg Route: IVP; Site: left antecubital; jh6 08:35 Follow up: Response: Pain is decreased jh6 Disposition: 18:01 Co-signature as Attending Physician, Anderson Pantoja MD I agree with the assessment and rn plan of care. Attestation: The patient's history, exam findings, diagnostics, and a summary of any interventions or procedures was reviewed in detail with Yessica DIAS. Disposition Summary: 08/04/21 08:38 Discharge Ordered Location: Home kb Condition: Stable kb Diagnosis - Headache kb Followup: kb - With: Emergency Department - When: As needed - Reason: Worsening of condition Followup: kb - With: Private Physician - When: 2 - 3 days - Reason: Recheck today's complaints, Continuance of care, Re-evaluation by your physician Discharge Instructions: - Discharge Summary Sheet kb - Migraine Headache, [id number] kb - General Headache Without Cause, [id number] kb Forms: - Medication Reconciliation Form kb - Thank You Letter kb - Antibiotic Education kb - Prescription Opioid Use kb Signatures: Yessica Felix FNP-C FNP-CkAnderson Sierra MD MD rn Smirch, Shelby, RN RN Mitzy Acosta RN RN jh6
[2021-08-04 09:08] VITALS: TEMP 97.8; O2SAT 100
[2021-08-04 09:11] VITALS: BP 125/89
== END 2021-08-04 09:03 | disposition home or self-care (01) ==
LOC: ER 07:02
DX: R51.9 Headache, unspecified (principal); I10 Essential (primary) hypertension; Z88.2 Allergy status to sulfonamides
CPT/HCPCS: 99283; J2765; J1200; J1100; J7030

== ENCOUNTER 2022-04-20 23:24 | Emergency (ER) | payer BC ==
--- OUTSIDE RECORDS SUMMARY | 2022-04-20 23:27 | XMS REPORT | Continuity of Care Document ---
:1975 Author Organization [facility] t Address [address] [place] [address] Care Team Providers Name Role Phone RubioFestus tate Alexa Attending Clinician Unavailable Problems This patient has no known problems. Allergies, Adverse Reactions, Alerts This patient has no known allergies or adverse reactions. Medications This patient has no known medications. Procedures This patient has no known procedures. Encounters Start End Encounter Admission Attending Care Care Encounter Source Date/Time Date/Time Type Type Clinicians Facility Department ID 2021-10-04 Outpatient Rubio, [facility]LMLC [facility] Common 13:50:01 Festus [facility] 2021-09-26 Out[facility] Common 13:39:47 Festus [id number] [facility] 2021-09-26 Outpatient Rubio, [facility]LMLC [facility] Common 13:33:21 Festus [id number] [facility] 2021-09-26 Outpatient Rubio, [facility] Common 13:14:23 Festus [id number] [facility] 2022-04-04 2022-04-04 ambulatory [facility]C [facility] [id number] Common 00:00:00 00:00:00 [facility] 2022-04-03 2022-04-03 ambulatory [facility] [id number] Common 00:00:00 00:00:00 [facility] 2022-01-29 2022-01-29 ambulatory STLMLC [facility] [id number] Common 00:00:00 00:00:00 [facility] 2022-01-17 2022-01-17 ambulatory STLMLC [facility] [id number] Common 00:00:00 00:00:00 [facility] 2022-01-10 2022-01-10 ambulatory [facility]C [facility] [id number] Common 00:00:00 00:00:00 [facility] 2021-10-02 2021-10-02 ambulatory STL[facility]C [facility] [id number] Common 00:00:00 00:00:00 [facility] 2021-08-02 2021-08-02 ambulatory [facility]C [facility] [id number] Common 00:00:00 00:00:00 [facility] 2021-07-30 2021-07-30 ambulatory STL[facility]C [facility] [id number] Common 00:00:00 00:00:00 [facility] 2021-07-18 2021-07-18 ambulatory STLMLC [facility] [id number] Common 00:00:00 00:00:00 [facility] 2021-07-11 2021-07-11 ambulatory [facility]C [facility] [id number] Common 00:00:00 00:00:00 [facility] 2021-07-09 2021-07-09 ambulatory [facility] [id number] Common 00:00:00 00:00:00 [facility] 2021-06-13 2021-06-13 Outpatient [facility]C [facility] [id number] Common 00:00:00 00:00:00 [facility] 2021-05-11 2021-05-11 Outpatient STL[facility]C [facility] [id number] Common 00:00:00 00:00:00 [facility] 2021-04-18 2021-04-18 Outpatient STL[facility]C [facility] [id number] Common 00:00:00 00:00:00 [facility] 2021-04-17 2021-04-17 Outpatient [facility]C [facility] [id number] Common 00:00:00 00:00:00 [facility] 2021-04-03 2021-04-03 Outpatient [facility]C [facility] [id number] Common 00:00:00 00:00:00 [facility] 2021-03-08 2021-03-08 Outpatient [facility]C [facility] [id number] Common 00:00:00 00:00:00 [facility] 2021-02-12 2021-02-12 Outpatient STL[facility]C [facility] [id number] Common 00:00:00 00:00:00 [facility] Results This patient has no known results.
[2022-04-21] MEDS ORDERED: ACETAMINOPHEN 500 MG TAB ONE (00:16)
[2022-04-21 00:39] LABS: Absolute Lymphocytes (CBC) 2.6 K/uL (0.7-4.9); Hematocrit 48.4 % (36.0-45.0); Lymphocytes % 34.1 % (15.3-44.8); MCV 91.5 fL (80-100); MPV 8.7 fL (7.6-11.3); RBC Red Blood Cell Count 5.29 M/uL (3.86-4.86)
[2022-04-21 00:43] LABS: Protime INR 1.03
[2022-04-21 00:43] LABS: Urine Blood Trace-lysed (Negative); Urine Glucose Negative (Negative); Urine Protein Negative (Negative); Urine pH 6.5 (5.0-7.0)
[2022-04-21 00:59] LABS: Barbiturates NEGATIVE (NEGATIVE); Benzodiazepines NEGATIVE (NEGATIVE); Cocaine NEGATIVE (NEGATIVE); METHAMPHETAM NEGATIVE (NEGATIVE); Methadone NEGATIVE (NEGATIVE); Opiates NEGATIVE (NEGATIVE); Phencyclidine NEGATIVE (NEGATIVE); THC Cannibis NEGATIVE (NEGATIVE)
[2022-04-21 01:11] LABS: ALT/SGPT 26 U/L (12-78); AST/SGOT 14 U/L (15-37); Albumin 4.3 g/dL (3.4-5.0); Alkaline Phosphatase 52 U/L (45-117); BUN Blood Urea Nitrogen 10 mg/dL (7-18); Bicarbonate 28 mmol/L (21-32); Bilirubin Direct 0.1 mg/dL (0-0.2); Bilirubin Total 0.5 mg/dL (0.2-1.0); Glomerular Filtration Rate 95 ml/min (=/>90); Glucose Level 98 mg/dL (74-106); Potassium 3.3 mmol/L (3.5-5.1); Protein, Total 8.2 g/dL (6.4-8.2); Sodium Level 143 mmol/L (136-145)
[2022-04-21] MEDS ORDERED: IBUPROFEN 200 MG TAB PO ONE (05:52)
--- NOTE | 2022-04-21 06:17 | EDPHYS ---
Physician Documentation [facility] Name: Kristen Yadav Age: 46 yrs Sex: Female : 1975 Arrival Date: 04/20/2022 Time: 23:26 Bed 18 Private MD: ED Physician Donald May HPI: 04/21 00:47 This 46 yrs old Female presents to ER via EMS with unknown complaint. kdr 00:47 Patient had been drinking this evening and apparently made a reference to not wanting kdr to wake up in the morning. This was heard by her friend/roommate, who called the police to respond to the scene. The police then called EMS. Patient was found to be in a semistuporous state. She initially reiterated sentiment of not wanting to wake up at which point the mental health deputy was brought to the scene. Patient then was brought to the ED via EMS. Currently on initial presentation so that she has had too much to drink tonight that she is not suicidal or homicidal. She certainly states that she admits to being depressed however she continues to deny being suicidal. She has 3 children all essentially grown. All of which have significant healthcare issues themselves. Additionally her mother has several significant health care issues as well. She has no family to provide support and in managing these many issues. 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 And that has presented to the onset of problems.. Onset: The symptoms/episode began/occurred gradually, at an unknown time. Severity of symptoms: At their worst the symptoms were moderate severe incapacitating in the emergency department the symptoms are unchanged. The patient has not experienced similar symptoms in the past. The patient has not recently seen a physician. 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 - Social history:: Smoking status: Patient denies any tobacco usage or history of. ROS: 04/21 00:47 Constitutional: Poor historian secondary to her intoxicated state Eyes: Negative for kdr injury, pain, redness, and discharge, Neck: Negative for injury, pain, and swelling. Exam: 00:47 Constitutional: This is a well developed, well nourished patient who is awake, kdr somewhat alert, but in no significant acute distress. Head/Face: Normocephalic, atraumatic. Eyes: Pupils equal round and reactive to light, extra-ocular motions intact. Lids and lashes normal. Conjunctiva and sclera are non-icteric and not injected. Cornea within normal limits. Periorbital areas with no swelling, redness, or edema. Neck: Trachea midline, no thyromegaly or masses palpated, and no cervical lymphadenopathy. Supple, full range of motion without nuchal rigidity, or vertebral point tenderness. No Meningismus. Chest/axilla: Normal chest wall appearance and motion. Nontender with no deformity. No lesions are appreciated. Cardiovascular: Regular rate and rhythm with a normal S1 and S2. No gallops, murmurs, or rubs. Normal PMI, no JVD. No pulse deficits. Respiratory: Lungs have equal breath sounds bilaterally, clear to auscultation and percussion. No rales, rhonchi or wheezes noted. No increased work of breathing, no retractions or nasal flaring. Abdomen/GI: Soft, non-tender, with normal bowel sounds. No distension or tympany. No guarding or rebound. No evidence of tenderness throughout. Back: No spinal tenderness. No costovertebral tenderness. Full range of motion. Skin: Warm, dry with normal turgor. Normal color with no rashes, no lesions, and no evidence of cellulitis. MS/ Extremity: Pulses equal, no cyanosis. Neurovascular intact. Full, normal range of motion. Neuro: Awake and alert, GCS 15, oriented to person, place, time, and situation. Cranial nerves II-XII grossly intact. Motor strength 5/5 in all extremities. Sensory grossly intact. Cerebellar exam normal. Normal gait. 00:47 Psych: Behavior/mood is pleasant, cooperative, depressed, Affect is flat, Oriented to person, place, time, Patient has no thoughts/intents to harm self or others. Judgement / Insight is normal. Recent memory is intact. Delusions/hallucinations are not present. Vital Signs: 04/20 23:33 BP 161 / 81; Pulse 88; Resp 14; Temp 98.3(O); Pulse Ox 98% on R/A; Weight 67.59 kg (R); ll3 Height 5 ft. 3 in. (160.02 cm) (R); Pain 10/10; 04/21 01:07 BP 115 / 61; Pulse 70; Resp 16; Pulse Ox 98% on R/A; ll3 04/20 23:33 Body Mass Index 26.39 (67.59 kg, 160.02 cm) ll3 MDM: 00:47 Data reviewed: vital signs, nurses notes, lab test result(s). Counseling: I had a kdr detailed discussion with the patient and/or guardian regarding: the historical points, exam findings, and any diagnostic results supporting the discharge/admit diagnosis, lab results, the need for outpatient follow up. 06:17 Patient medically screened. kdr 06:18 ED course: She continues to maintain that she is not suicidal. She has told the same kdr story to EMS myself nursing staff and the [facility] asphalt tamping machine operator. She was otherwise appropriate and has not required any further intervention here. Is my opinion along with out of the [facility] asphalt tamping machine operator that patient is safe for discharge and follow-up with her regular mental health professionals.. 04/20 23:56 Order name: Acetaminophen; Complete Time: 05:24 kdr 04/20 23:56 Order name: Basic Metabolic Panel; Complete Time: 05:24 kdr 04/20 23:56 Order name: CBC with Diff; Complete Time: 05:24 kdr 04/20 23:56 Order name: ETOH Level; Complete Time: 05:24 kdr 04/20 23:56 Order name: Hepatic Function; Complete Time: 05:24 kdr 04/20 23:56 Order name: PT-INR; Complete Time: 05:24 kdr 04/20 23:56 Order name: Ptt, Activated; Complete Time: 05:24 kdr 04/20 23:56 Order name: Salicylate; Complete Time: 05:24 kdr 04/20 23:56 Order name: Urine Drug Screen; Complete Time: 05:24 kdr 04/21 00:44 Order name: Urine Dipstick-Ancillary; Complete Time: 05:24 EDMS 04/21 05:12 Order name: Diet Finger Food; Complete Time: 05:12 5 04/21 05:26 Order name: SARS-COV-2 Antigen Rapid tw5 04/20 23:56 Order name: IV Saline Lock; Complete Time: 00:14 kdr 04/20 23:56 Order name: Labs collected and sent; Complete Time: 00:14 kdr 04/20 23:56 Order name: Suicide Precautions; Complete Time: 00:16 kdr 04/20 23:56 Order name: Suicide Screening ([place]); Complete Time: 01:03 kdr 04/20 23:56 Order name: Urine Dipstick-Ancillary (obtain specimen); Complete Time: 00:14 kdr Administered Medications: 00:07 Drug: Tylenol 1000 mg Route: PO; ll3 06:12 Follow up: Response: No adverse reaction; Marked relief of symptoms 3 05:45 Drug: Ibuprofen 600 mg Route: PO; ll3 06:30 Follow up: Response: No adverse reaction ll3 Disposition Summary: 04/21/22 06:17 Discharge Ordered Location: Home kdr Problem: an acute exacerbation kdr Symptoms: have improved kdr Condition: Fair kdr Diagnosis - Major depressive disorder, recurrent, mild kdr Followup: kdr - With: Private Physician - When: 2 - 3 days - Reason: If symptoms return, Further diagnostic work-up, Recheck today's complaints, Continuance of care, Re-evaluation by your physician Discharge Instructions: - Discharge Summary Sheet kdr - Suicidal Feelings: How to Help Yourself kdr - Persistent Depressive Disorder, Adult kdr - Major Depressive Disorder, Adult, [id number] kdr - Helping Someone Who is Suicidal kdr Forms: - Medication Reconciliation Form kdr - Thank You Letter kdr Signatures: Dispatcher [employer] Donald Elias MD MD kdr Aleksander Ramirez, RN RN ll3
--- NOTE | 2022-04-21 06:17 | ER ---
Nurse's Notes [facility] Name: Kristen Yadav Age: 46 yrs Sex: Female : 1975 Arrival Date: 04/20/2022 Time: 23:26 Bed 18 Private MD: Diagnosis: Major depressive disorder, recurrent, mild Presentation: 04/20 23:33 Chief complaint: EMS states: Toned out for SI, EMS states pt texted a friend saying ll3 that she took something and didn't want to wake up, Pt states she has been "drinking a lot" and "I took some pills but only what was prescribed to me", Pt states boyfriend left her today, states "I don't want to do it anymore, I don't want to be responsible for everyone anymore, I cant handle it". Coronavirus screen: Vaccine status: Patient reports being unvaccinated. At this time, the client does not indicate any symptoms associated with coronavirus-19. Ebola Screen: No symptoms or risks identified at this time. Initial Sepsis Screen: Does the patient meet any 2 criteria? No. Patient's initial sepsis screen is negative. Does the patient have a suspected source of infection? No. Patient's initial sepsis screen is negative. Risk Assessment:. Onset of symptoms was April 20, 2022. 23:33 Method Of Arrival: EMS: [facility] 23:33 Acuity: ELINA 3 ll3 23:33 Risk Assessment: Do you want to hurt yourself or someone else? Other: Stated to friend ll3 that she wished to go to sleep and not wake up. Triage Assessment: 23:42 General: Appears uncomfortable, Behavior is cooperative, anxious, crying, Smells of ll3 alcohol, States "I don't want to do it all anymore", texted friend that she didn't want to wake up, states boyfriend left her today. Pain: Complains of pain in H/A Pain does not radiate. Pain currently is 10 out of 10 on a pain scale. Neuro: Level of Consciousness is awake, alert, obeys commands, Oriented to person, place, time, situation. Neuro: Reports headache. Cardiovascular: Patient's skin is warm and dry. Respiratory: Respiratory effort is even, unlabored, Respiratory pattern is regular, symmetrical. GI: Reports diarrhea. Derm: Skin is pink, warm \\T\\ dry. 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 - Social history:: Smoking status: Patient denies any tobacco usage or history of. Screenin/21 01:07 Abuse screen: Denies threats or abuse. Nutritional screening: No deficits noted. ll3 Tuberculosis screening: No symptoms or risk factors identified. Fall Risk None identified. Assessment: 04/20 23:55 General: See triage assessment. ll3 04/21 01:07 Reassessment: No changes from previously documented assessment. Patient and/or family 3 updated on plan of care and expected duration. Pain level reassessed. Patient is alert, oriented x 3, equal unlabored respirations, skin warm/dry/pink. 03:10 Reassessment: Pt requests access to cell phone, states "I cant kill myself with my 3 phone". 04:18 Reassessment:. ll3 05:46 Reassessment: Pt is on the phone speaking with [facility]. 3 06:00 Reassessment: Pt c/o H/A, Dr. May notified, medicated as ordered, tolerated well. ll3 Vital Signs: 04/20 23:33 BP 161 / 81; Pulse 88; Resp 14; Temp 98.3(O); Pulse Ox 98% on R/A; Weight 67.59 kg (R); ll3 Height 5 ft. 3 in. (160.02 cm) (R); Pain 10/10; 04/21 01:07 BP 115 / 61; Pulse 70; Resp 16; Pulse Ox 98% on R/A; ll3 04/20 23:33 Body Mass Index 26.39 (67.59 kg, 160.02 cm) 3 ED Course: 04/20 23:26 Patient arrived in ED. mh5 23:33 Aleksander Ramirez RN is Primary Nurse. ll3 23:36 Donald May MD is Attending Physician. kdr 23:42 Triage completed. ll3 23:42 Arm band placed on Patient placed in an exam room, on a stretcher, on pulse oximetry. ll3 23:45 Safety Checks: Personal items have been removed. The door is open or patient has been ll3 placed in a hallway bed/chair. Sitter present at this time. 23:49 Patient has correct armband on for positive identification. Placed in gown. Bed in low mh5 position. Side rails up X2. Warm blanket given. quality assurance monitor final on. Pulse ox on. NIBP on. 23:50 Appears agitated. 3 08 00:00 Safety Checks: There are no family/friend visitors at this time. ll3 00:00 No apparent distress. Resting quietly. Appears to be sleeping. 3 00:14 Acetaminophen Sent. 5 00:14 Basic Metabolic Panel Sent. 5 00:14 CBC with Diff Sent. 5 00:14 ETOH Level Sent. 5 00:14 Hepatic Function Sent. 5 00:14 PT-INR Sent. 5 00:14 Ptt, Activated Sent. 5 00:14 Salicylate Sent. 5 00:15 Urine Drug Screen Sent. 5 00:15 Initial lab(s) drawn, by pa, sent to lab. Urine collected: clean catch specimen, clear. 5 Inserted saline lock: 20 gauge in right antecubital area, using aseptic technique. Blood collected. 00:16 Safety checks: Items removed: yes. Door open/sign placed on door: yes. Family/friend [facility] present: no. Sitter present: Yes. 01:11 No provider procedures requiring assistance completed. ll3 01:30 Resting quietly. Appears to be sleeping. ll3 04:15 Resting quietly. ll3 05:27 Resting quietly. ll3 05:41 SARS-COV-2 Antigen Rapid Sent. 5 05:41 rapid covid. 5 06:30 IV discontinued, intact, bleeding controlled, No redness/swelling at site. Pressure 3 dressing applied. Administered Medications: 00:07 Drug: Tylenol 1000 mg Route: PO; ll3 06:12 Follow up: Response: No adverse reaction; Marked relief of symptoms ll3 05:45 Drug: Ibuprofen 600 mg Route: PO; ll3 06:30 Follow up: Response: No adverse reaction ll3 Medication: 01:11 VIS not applicable for this client. ll3 Outcome: 06:17 Discharge ordered by . kdr 06:30 Discharged to home ambulatory, with family. ll3 06:30 Condition: stable 06:30 Discharge instructions given to patient, family, Instructed on discharge instructions, follow up and referral plans. Demonstrated understanding of instructions, follow-up care. 06:31 Patient left the ED. ll3 Signatures: Donald May MD MD [facility] Tabby Zavala [facility] Aleksander Ramirez RN RN ll3 Corrections: (The following items were deleted from the chart) 01:10 08 23:55 Safety Checks: Personal items have been removed. The door is open or ll3 patient has been placed in a hallway bed/chair. Sitter present at this time. ll3 04/21 06:14 06:07 Reassessment: Pt c/o H/A, Dr. May notified, medicated as ordered, tolerated ll3 well ll3
[2022-04-21 06:19] LABS: SARS-CoV-2 Antigen Rapid Res Negative (Negative)
[2022-04-21 08:48] VITALS: TEMP 98.3; O2SAT 98
[2022-04-21 08:50] VITALS: BP 115/61
== END 2022-04-21 06:31 | disposition home or self-care (01) ==
LOC: ER 23:24
DX: F33.0 Major depressive disorder, recurrent, mild (principal); I10 Essential (primary) hypertension; Z88.2 Allergy status to sulfonamides; Z20.822 Contact with and (suspected) exposure to COVID-19
CPT/HCPCS: 36415; 80048; 80076; 80307; 80320; 80329; 81003; 85025; 85610; 85730; 87811; 99284

== ENCOUNTER 2023-01-09 11:08 | Emergency (ER) | payer OTHER ==
--- OUTSIDE RECORDS SUMMARY | 2023-01-09 11:11 | XMS REPORT | Continuity of Care Document ---
:1975 Author Organization [facility] t Address [address] [place] [address] Care Team Providers Name Role Phone Festus Rubio Attending Clinician Unavailable LINO GA Attending Clinician Unavailable ARVIND YAP Attending Clinician Unavailable Payers Payer Name Policy Type Policy Number Effective Date Expiration Date Yong pak AETNA-90 DEGREE 2 [id number] 2022 BENEFITS 00:00:00 Health[employer]/TSH 53 [id number] 2022 [facility] B 00:00:00 [facility] Blue Cross Blue 6 [id number] 2020 [facility] Shield HMO 00:00:00 [facility] Problems Condition Condition Condition Status Onset Resolution Last Treating Co mments Source Name Details Category Date Date Treatment Clinician Date [id number] Liver Problem Common lesion, Spirit right lobe - [facility] [id number] Depression Problem C ommon 05 , major, Spirit single - [facility] episode, [facility] [id number] Obstructiv Problem Com mon e sleep Spirit apnea - [facility] (adult) (pediatric [facility] ) [facility] [id number] Benign Problem Common essential Spirit HTN - [facility] [id number] Dependence Problem Co mmon on other Spirit enabling - [facility] machines [facility] [id number] Tobacco Problem Commo n use Spirit disorder - [facility] [id number] Mixed Problem Common hyperlipid Spirit emia - [facility] [id number] Depression Problem Co mmon with Spirit anxiety [facility] [id number] Primary Problem Common insomnia [facility] Allergies, Adverse Reactions, Alerts Allergy Allergy Status Severity Reaction(s) Onset Inactive Treating Comm ents Source Name Type Date Date Clinician 36385 Drug Active Fever, Common allergy Swelling [facility] Social History Social Habit Start Date Stop Date Quantity Comments Source History of Tobacco Current Smoker Co mmon Spirit - [facility] Use [facility] Sex Assigned At Com mon [facility] Smoking Status Start Date Stop Date Source Current Smoker 2022-08-16 00:00:00 [facility] - [facility] Medications Ordered Filled Start Stop Current Ordering Indication Dosage Frequency Signature Comments Components Source Medication Medication Date Date Medication? Clinician (SIG) Name Name Amoxicillin Amoxicillin 2021-09 1{table BID Amoxicilli -Pot -Pot 09-23 t} n-Pot Clavulanate Clavulanate 00:00: 00:00 Clavulanat 875-125 MG 875-125 MG 00 :00 e 875-125 MG Amoxicillin Amoxicillin 2021-09 No 1{table BID Amoxicilli -Pot -Pot 09-23 t} n-Pot Clavulanate Clavulanate 00:00: 00:00 Clavulanat 875-125 MG 875-125 MG 00 :00 e 875-125 MG Nicotine 21 Nicotine 21 2021- No 1{patch QD Nicotine MG/24HR MG/24HR 04-04to_ski 21 MG/24HR 00:00: 00:00 n} 00 :00 Nicotine 21 Nicotine 21 2021- No 1{patch QD Nicotine MG/24HR MG/24HR 04-04 _to_ski 21 MG/24HR 00:00: 00:00 n} 00 :00 Nicotine 21 Nicotine 21 2021- No 1{patch QD Nicotine MG/24HR MG/24HR 04-04 _to_ski 21 MG/24HR 00:00: 00:00 n} 00 :00 Nicotine 21 Nicotine 21 2021- No 1{patch QD Nicotine MG/24HR MG/24HR 04-04 _to_ski 21 MG/24HR 00:00: 00:00 n} 00 :00 buPROPion buPROPion 2020-09 No 1{table QD buPROPion HCl ER (SR) HCl ER (SR) 1-10 t_in_th HCl ER 100 MG 100 MG 00:00: e_morni (SR) 100 00 ng} MG traZODone traZODone 2020-09 No 1{table QD traZODone HCl 50 MG HCl 50 MG 1-10 t_at_be HCl 50 MG 00:00: dtime_a 00 s_neede d} buPROPion buPROPion 2020-09 No 1{table QD buPROPion HCl ER (SR) HCl ER (SR) 1-10 t_in_th HCl ER 100 MG 100 MG 00:00: e_morni (SR) 100 00 ng} MG traZODone traZODone 2020-09 No 1{table QD traZODone HCl 50 MG HCl 50 MG 1-10 t_at_be HCl 50 MG 00:00: dtime_a 00 s_neede d} buPROPion buPROPion 2020-09 No 1{table QD buPROPion HCl ER (SR) HCl ER (SR) 1-10 t_in_th HCl ER 100 MG 100 MG 00:00: e_morni (SR) 100 00 ng} MG traZODone traZODone 2020-09 No 1{table QD traZODone HCl 50 MG HCl 50 MG 1-10 t_at_be HCl 50 MG 00:00: dtime_a 00 s_neede d} buPROPion buPROPion 2020-09 No 1{table QD buPROPion HCl ER (SR) HCl ER (SR) 1-10 t_in_th HCl ER 100 MG 100 MG 00:00: e_morni (SR) 100 00 ng} MG traZODone traZODone 2020-09 No 1{table QD traZODone HCl 50 MG HCl 50 MG 1-10 t_at_be HCl 50 MG 00:00: dtime_a 00 s_neede d} buPROPion buPROPion 2020-09 No 1{table QD buPROPion HCl ER (SR) HCl ER (SR) 1-10 t_in_th HCl ER 100 MG 100 MG 00:00: e_morni (SR) 100 00 ng} MG traZODone traZODone 2020-09 No 1{table QD traZODone HCl 50 MG HCl 50 MG - t_at_be HCl 50 MG 00:00: dtime_a 00 s_neede d} Chantix Chantix 2021- No BID Chantix Continuing Continuing 04-03 Continuing Month Efraín 1 Month Efraín 1 00:00: 00:00 Month Efraín MG MG 00 :00 1 MG Chantix Chantix No BID Chantix Continuing Continuing Continuing Month Efraín 1 Month Efraín 1 Month Efraín MG MG 1 MG Lisinopril Lisinopril No QD Lisinopril 20 MG 20 MG 20 MG Chantix Chantix No BID Chantix Continuing Continuing Continuing Month Efraín 1 Month Efraín 1 Month Efraín MG MG 1 MG Lisinopril Lisinopril No QD Lisinopril 20 MG 20 MG 20 MG Chantix Chantix No BID Chantix Continuing Continuing Continuing Month Efraín 1 Month Efraín 1 Month Efraín MG MG 1 MG Chantix Chantix No BID Chantix Continuing Continuing Continuing Month Efraín 1 Month Efraín 1 Month Efraín MG MG 1 MG Lisinopril Lisinopril No QD Lisinopril 20 MG 20 MG 20 MG Lisinopril Lisinopril No Lisinopril 20 MG 20 MG 20 MG Chantix Chantix No BID Chantix Continuing Continuing Continuing Month Efraín 1 Month Efraín 1 Month Efraín MG MG 1 MG Lisinopril Lisinopril No QD Lisinopril 20 MG 20 MG 20 MG Lisinopril Lisinopril No Lisinopril 20 MG 20 MG 20 MG Lisinopril Lisinopril No QD Lisinopril 20 MG 20 MG 20 MG Chantix Chantix No BID Chantix Continuing Continuing Continuing Month Efraín 1 Month Efraín 1 Month Efraín MG MG 1 MG Lisinopril Lisinopril No Lisinopril 20 MG 20 MG 20 MG Lisinopril Lisinopril No QD Lisinopril 20 MG 20 MG 20 MG Chantix Chantix No BID Chantix Continuing Continuing Continuing Month Efraín 1 Month Efraín 1 Month Efraín MG MG 1 MG Lisinopril Lisinopril No Lisinopril 20 MG 20 MG 20 MG Lisinopril Lisinopril No Lisinopril 20 MG 20 MG 20 MG Lisinopril Lisinopril No QD Lisinopril 20 MG 20 MG 20 MG Lisinopril Lisinopril No Lisinopril 20 MG 20 MG 20 MG Lisinopril Lisinopril No QD Lisinopril 20 MG 20 MG 20 MG Lisinopril Lisinopril No Lisinopril 20 MG 20 MG 20 MG Lisinopril Lisinopril No QD Lisinopril 20 MG 20 MG 20 MG Lisinopril Lisinopril No Lisinopril 20 MG 20 MG 20 MG Lisinopril Lisinopril No QD Lisinopril 20 MG 20 MG 20 MG Lisinopril Lisinopril No Lisinopril 20 MG 20 MG 20 MG Nicotine 21 Nicotine 21 No 1{patch QD Nicotine MG/24HR MG/24HR _to_ski 21 MG/24HR n} Lisinopril Lisinopril No QD Lisinopril 20 MG 20 MG 20 MG Lisinopril Lisinopril No Lisinopril 20 MG 20 MG 20 MG Nicotine 21 Nicotine 21 No 1{patch QD Nicotine MG/24HR MG/24HR _to_ski 21 MG/24HR n} Lisinopril Lisinopril No QD Lisinopril 20 MG 20 MG 20 MG Lisinopril Lisinopril No QD Lisinopril 20 MG 20 MG 20 MG Lisinopril Lisinopril No Lisinopril 20 MG 20 MG 20 MG Nicotine 21 Nicotine 21 No 1{patch QD Nicotine MG/24HR MG/24HR _to_ski 21 MG/24HR n} Lisinopril Lisinopril No Lisinopril 20 MG 20 MG 20 MG Lisinopril Lisinopril No QD Lisinopril 20 MG 20 MG 20 MG Chantix Chantix No BID Chantix Continuing Continuing Continuing Month Efraín 1 Month Efraín 1 Month Efraín MG MG 1 MG Lisinopril Lisinopril No QD Lisinopril 20 MG 20 MG 20 MG Chantix Chantix No BID Chantix Continuing Continuing Continuing Month Efraín 1 Month Efraín 1 Month Efraín MG MG 1 MG Lisinopril Lisinopril No QD Lisinopril 20 MG 20 MG 20 MG Chantix Chantix No BID Chantix Continuing Continuing Continuing Month Efraín 1 Month Efraín 1 Month Efraín MG MG 1 MG Lisinopril Lisinopril No QD Lisinopril 20 MG 20 MG 20 MG Vital Signs Vital Name Observation Time Observation Value Comments Source height 2022-08-20 11:40:00 63 [in_i] [facility] weight 2022-08-20 11:40:00 155 [lb_av] [facility] temperature 2022-08-20 11:40:00 98 [degF] [facility] bmi 2022-08-20 11:40:00 27.45 kg/m2 [facility] blood pressure 2022-08-20 11:40:00 128 mm[Hg] [facility] [place] [facility] blood pressure 2022-08-20 11:40:00 73 mm[Hg] [facility] - diastolic [facility] height 2022-07-24 15:30:00 63 [in_i] [facility] weight 2022-07-24 15:30:00 156.9 [lb_av] [facility] temperature 2022-07-24 15:30:00 100.9 [degF] [facility] 2022-07-24 15:30:00 27.79 kg/m2 [facility] height 2022-04-04 14:40:00 63 [in_i] [facility] weight 2022-04-04 14:40:00 154.9 [lb_av] [facility] temperature 2022-04-04 14:40:00 98.1 [degF] [facility] bmi 2022-04-04 14:40:00 27.44 kg/m2 [facility] oximetry 2022-04-04 14:40:00 98 % [facility] respiratory rate 2022-04-04 14:40:00 18 /min Comm on Spirit - [facility] blood pressure 2022-04-04 14:40:00 132 mm[Hg] [facility] - systolic [facility] blood pressure 2022-04-04 14:40:00 70 mm[Hg] [facility] - diastolic [facility] height 2022-01-17 07:40:00 63 [in_i] Common S pirit - [facility] weight 2022-01-17 07:40:00 153 [lb_av] Common S pirit - [facility] temperature 2022-01-17 07:40:00 98.6 [degF] Common S pirit - [facility] bmi 2022-01-17 07:40:00 27.1 kg/m2 Common S pirit - [facility] blood pressure 2022-01-17 07:40:00 106 mm[Hg] [facility] - systolic [facility] blood pressure 2022-01-17 07:40:00 77 mm[Hg] [facility] - diastolic [facility] height 2021-10-02 11:40:00 63 [in_i] Common S pirit - [facility] weight 2021-10-02 11:40:00 161 [lb_av] Common S pirit - [facility] temperature 2021-10-02 11:40:00 101.2 [degF] Common S pirit - [facility] bmi 2021-10-02 11:40:00 28.52 kg/m2 Common S pirit - [facility] blood pressure 2021-10-02 11:40:00 135 mm[Hg] [facility] - systolic [facility] blood pressure 2021-10-02 11:40:00 78 mm[Hg] [facility] - diastolic [facility] height 2021-07-11 08:40:00 63 [in_i] Common S pirit - [facility] weight 2021-07-11 08:40:00 164 [lb_av] Common S pirit - [facility] temperature 2021-07-11 08:40:00 98 [degF] Common S pirit - [facility] bmi 2021-07-11 08:40:00 29.05 kg/m2 Common S pirit - [facility] blood pressure 2021-07-11 08:40:00 132 mm[Hg] Common [facility] - systolic [facility] blood pressure 2021-07-11 08:40:00 70 mm[Hg] Common [facility] - diastolic [facility] height 2021-06-13 09:00:00 63 [in_i] Common [facility] weight 2021-06-13 09:00:00 163.1 [lb_av] Common [facility] temperature 2021-06-13 09:00:00 97.6 [degF] [facility] bmi 2021-06-13 09:00:00 28.89 kg/m2 [facility] oximetry 2021-06-13 09:00:00 98 % [facility] respiratory rate 2021-06-13 09:00:00 16 /min Comm on [facility] blood pressure 2021-06-13 09:00:00 138 mm[Hg] Common [facility] - systolic [facility] blood pressure 2021-06-13 09:00:00 75 mm[Hg] [facility] [place] [facility] Procedures This patient has no known procedures. Encounters Start End Encounter Admission Attending Care Care Encounter Source Date/Time Date/Time Type Type Clinicians Facility Department ID 2022-08-16 Outpatient Rubio, STLMLC STLC [id number] Common 10:08:02 [facility] 2022-07-18 Outpatient Rubio, STLMLC STLMLC [id number] Common 10:51:01 [facility] 2021-10-04 Outpatient Rubio, STLMLC STLMLC [id number] Common 13:50:01 Festus [facility] 2021-09-26 Outpatient Rubio, STLMLC STLMLC [id number] Common 13:39:47 [facility] [address]15 [facility] 2021-09-26 Outpatient Rubio, STLMLC STLMLC [id number] Common 13:33:21 Festus 65414 [facility] 2021-09-26 Outpatient Ramiro, STLMLC STLMLC [id number] Common 13:14:23 Festus 83225 [facility] 2023-01-30 2023-01-30 Outpatient [place] [id number] Herrera 08:00:00 08:00:00 LINO glass 2023-01-09 2023-01-09 Outpatient HERRERA YAP [id number] Herrera 00:00:00 00:00:00 ARVIND glass 2022-08-20 2022-08-20 OFFICE STLMLC STLMLC [id number] Co mmon 00:00:00 00:00:00 VISIT Spirit ESTAB PT [facility] LEVEL 4 [facility] 2022-07-24 2022-07-24 (TEL) STLMLC STLMLC [id number] Co mmon 00:00:00 00:00:00 [facility] 2022-07-24 2022-07-24 OFFICE STLMLC STLMLC [id number] Co mmon 00:00:00 00:00:00 VISIT EST Spir it PT LEVEL 3 [facility] 2022-04-25 2022-04-25 (TEL) STLMLC STLMLC [id number] Co mmon 00:00:00 00:00:00 [facility] 2022-04-12 2022-04-12 (TEL) STLMLC STLMLC [id number] Co mmon 00:00:00 00:00:00 [facility] 2022-04-04 2022-04-04 (WELLNESS) STLMLC STLMLC [id number] Common 00:00:00 00:00:00 Wellness Spiri t [facility] 2022-04-03 2022-04-03 (TEL) STLMLC STLMLC [id number] Co mmon 00:00:00 00:00:00 [facility] 2022-01-29 2022-01-29 (TEL) STLMLC STLMLC [id number] Co mmon 00:00:00 00:00:00 [facility] 2022-01-17 2022-01-17 OFFICE STLMLC STLMLC [id number] Co mmon 00:00:00 00:00:00 VISIT EST Spir it PT LEVEL 3 [facility] 2022-01-10 2022-01-10 (TEL) STLMLC STLMLC [id number] Co mmon 00:00:00 00:00:00 [facility] 2021-10-02 2021-10-02 OFFICE STLMLC STLMLC [id number] Co mmon 00:00:00 00:00:00 VISIT EST Spir it PT LEVEL 3 [facility] 2021-08-02 2021-08-02 (TEL) STLMLC STLMLC [id number] Co mmon 00:00:00 00:00:00 [facility] 2021-07-30 2021-07-30 (TEL) STLMLC STLMLC [id number] Co mmon 00:00:00 00:00:00 [facility] 2021-07-18 2021-07-18 (TEL) STLMLC STLMLC [id number] Co mmon 00:00:00 00:00:00 [facility] 2021-07-11 2021-07-11 OFFICE STLMLC STLMLC [id number] Co mmon 00:00:00 00:00:00 VISIT [facility] PT - CHI LEVEL 4 [facility] 2021-07-09 2021-07-09 (TEL) STLMLC STLMLC [id number] Co mmon 00:00:00 00:00:00 [facility] 2021-06-13 2021-06-13 OFFICE STLMLC STLMLC [id number] Co mmon 00:00:00 00:00:00 VISIT [facility] PT - CHI LEVEL 4 [facility] 2021-05-11 2021-05-11 (TEL) STLMLC STLMLC [id number] Co mmon 00:00:00 00:00:00 [facility] 2021-04-18 2021-04-18 Outpatient STLMLC STLMLC [id number] Common 00:00:00 00:00:00 [facility] 2021-04-17 2021-04-17 Outpatient STLMLC STLMLC [id number] Common 00:00:00 00:00:00 [facility] 2021-04-03 2021-04-03 Outpatient STLMLC STLMLC [id number] Common 00:00:00 00:00:00 [facility] 2021-03-08 2021-03-08 Outpatient STLMLC STLMLC [id number] Common 00:00:00 00:00:00 [facility] 2021-02-12 2021-02-12 Outpatient STLMLC STLMLC [id number] Common 00:00:00 00:00:00 [facility] Results Test Description Test Time Test Comments Results Result Comments Source STREP A RAPID 2022-07-24 00:00:00 Test Item Value Reference Range Interpretation Comme nts Result (test code = 77807-7) POSITIVE
[2023-01-09 11:53] LABS: Specific Gravity < 1.005 (1.005-1.030); Urine Bacteria None Seen /HPF (<20); Urine Bilirubin NEGATIVE (Negative); Urine Blood Negative (Negative); Urine Clarity Clear (Clear); Urine Color Colorless (Yellow); Urine Glucose NEGATIVE (Negative); Urine Protein NEGATIVE (Negative); Urine RBC <5 /HPF (None Seen); Urine Urobilinogen Normal (Normal)
[2023-01-09 12:04] LABS: Absolute Lymphocytes (CBC) 2.2 K/uL (0.7-4.9); Hematocrit 43.6 % (36.0-45.0); Lymphocytes % 38.6 % (15.3-44.8); MCV 94.3 fL (80-100); MPV 8.4 fL (7.6-11.3); RBC Red Blood Cell Count 4.63 M/uL (3.86-4.86)
--- NOTE | 2023-01-09 12:12 | RAD REPORT ---
EXAM DESCRIPTION: RADChest Single View01/09/2023 12:03 pm CLINICAL HISTORY: CHEST PAIN COMPARISON: Chest Single View dated 07/31/2021; Chest Single View dated 02/26/2019; CHEST SINGLE VIEW dated 10/27/2015; CHEST SINGLE VIEW dated 04/03/2011 TECHNIQUE: Portable AP view of the chest. FINDINGS: The lungs are clear. No pneumothorax or effusion. The cardiomediastinal contours are unrem arkable. IMPRESSION: No acute cardiopulmonary process.
[2023-01-09 12:27] LABS: Magnesium 2.3 mg/dL (1.6-2.4); Potassium 3.6 mEq/L (3.5-5.1); Thyroid Stimulating Hormone 1.39 uIU/mL (0.358-3.740); Troponin High Sensitivity 3.3 pg/mL (<58.9)
--- NOTE | 2023-01-09 12:49 | EDPHYS ---
Physician Documentation [facility] Name: Kristen Yadav Age: 47 yrs Sex: Female : 1975 Arrival Date: 01/09/2023 Time: 11:08 Bed 17 Private MD: Ramiro [facility] ED Physician Glen Bain HPI: 01/09 12:12 This 47 yrs old Female presents to ER via Ambulatory with complaints of Chest rt Tightness, Irregular Pulse, Urinary Problem. 12:12 Patient with history of mitral valve prolapse presents to the ED with a chest rt tightness, the sensation that her heart is skipping a beat for the about the past 3 days. This reportedly occurs about 6 times per hour, is not increasing in severity or frequency. Patient came today for further eval. Of note, several months back, the patient states that she had a negative stress test and Holter monitor. The patient also states that she has a dysuria and is requesting urinalysis. Denies other acute complaints at this time, symptoms are moderate in severity, no other aggravating or alleviating factors.. 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 - Social history:: Smoking status: Patient reports the use of cigarette tobacco products, smokes one pack cigarettes per day. Patient/guardian denies using alcohol. - Family history:: not pertinent. ROS: 12:12 Constitutional: Negative for fever, chills, and weight loss, Respiratory: Negative for rt shortness of breath, cough, wheezing, and pleuritic chest pain, Abdomen/GI: Negative for abdominal pain, nausea, vomiting, diarrhea, and constipation, Skin: Negative for injury, rash, and discoloration, Neuro: Negative for headache, weakness, numbness, tingling, and seizure, Psych: Negative for depression, anxiety, suicide ideation, homicidal ideation, and hallucinations. 12:12 Cardiovascular: Positive for chest pain, palpitations. 12:12 : Positive for dysuria. Exam: 12:15 Constitutional: This is a well developed, well nourished patient who is awake, alert, rt and in no acute distress. Head/Face: Normocephalic, atraumatic. Chest/axilla: Normal chest wall appearance and motion. Nontender with no deformity. No lesions are appreciated. Cardiovascular: Regular rate and rhythm with a normal S1 and S2. No gallops, murmurs, or rubs. Normal PMI, no JVD. No pulse deficits. Respiratory: Lungs have equal breath sounds bilaterally, clear to auscultation and percussion. No rales, rhonchi or wheezes noted. No increased work of breathing, no retractions or nasal flaring. Abdomen/GI: Soft, non-tender, with normal bowel sounds. No distension or tympany. No guarding or rebound. No evidence of tenderness throughout. Skin: Warm, dry with normal turgor. Normal color with no rashes, no lesions, and no evidence of cellulitis. MS/ Extremity: Pulses equal, no cyanosis. Neurovascular intact. Full, normal range of motion. Neuro: Awake and alert, GCS 15, oriented to person, place, time, and situation. Cranial nerves II-XII grossly intact. Motor strength 5/5 in all extremities. Sensory grossly intact. Cerebellar exam normal. Normal gait. Psych: Awake, alert, with orientation to person, place and time. Behavior, mood, and affect are within normal limits. 12:15 ECG was reviewed by the Attending Physician. Vital Signs: 11:19 BP 174 / 91; Pulse 65; Resp 20; Temp 97.8; Pulse Ox 100% on R/A; Weight 72.57 kg; ld1 Height 5 ft. 3 in. ; Pain 0/10; 11:56 BP 139 / 87; Pulse 61; Pulse Ox 100% on R/A; ll1 13:07 BP 143 / 90; Pulse 54; Resp 17; Pulse Ox 100% ; Pain 0/10; ph 11:19 Body Mass Index 28.34 (72.57 kg, 160.02 cm) ld1 11:19 Pain Scale: Adult ld1 13:07 Pain Scale: Adult ph MDM: 11:24 Patient medically screened. rt 13:05 Differential diagnosis: Acute coronary syndrome, dysrhythmia, electrolyte disturbance, rt thyrotoxicosis. HEART Score: History: Slightly Suspicious (0), ECG: Normal (0), Age: > 45 and < 65 years (1), Risk Factors: 1 or 2 risk factors (1), Troponin: < or = 1 x Normal Limit (0), Total Score = 2. Data reviewed: vital signs, lab test result(s), EKG, radiologic studies. Consideration of Admission/Observation Escalation of care including admission/observation considered. Independent interpretation of the following test(s) in the Emergency Department X-Ray: My interpretation is Pneumothorax seen on my interpretation of the x-ray images. Test considered but Not performed: CT: Low suspicion for PE, CT angiogram not indicated. Care significantly affected by the following chronic conditions: Hypertension. Counseling: I had a detailed discussion with the patient and/or guardian regarding: the historical points, exam findings, and any diagnostic results supporting the discharge/admit diagnosis, lab results, radiology results, the need for outpatient follow up. 01/09 11:26 Order name: Basic Metabolic Panel; Complete Time: 12:35 01/09 11:26 Order name: CBC with Diff; Complete Time: 12:15 01/09 11:26 Order name: Magnesium; Complete Time: 12:35 01/09 11:26 Order name: Troponin HS; Complete Time: 12:35 01/09 11:26 Order name: TSH; Complete Time: 12:35 01/09 11:31 Order name: UAM; Complete Time: 12:15 rt 01/09 11:26 Order name: XRAY Chest (1 view); Complete Time: 12:15 01/09 11:26 Order name: EKG; Complete Time: : 01/09 11:26 Order name: Cardiac monitoring; Complete Time: 01/09 11:26 Order name: EKG - Nurse/Tech; Complete Time: : 01/09 11:26 Order name: IV Saline Lock; Complete Time: : 01/09 11:26 Order name: Labs collected and sent; Complete Time: : 01/09 11:26 Order name: O2 Per Protocol; Complete Time: 01/09 11:26 Order name: O2 Sat Monitoring; Complete Time: 11:26 ll1 EC:15 Rate is 65 beats/min. Rhythm is regular, Normal Sinus Rhythm with No ectopy. QRS [place] rt is Normal. NM interval is normal. QRS interval is normal. QT interval is normal. No Q waves. T waves are Normal. No ST changes noted. Interpreted by me. Administered Medications: No medications were administered Disposition Summary: 01/09/23 12:48 Discharge Ordered Location: Home rt Problem: new rt Symptoms: have improved rt Condition: Stable rt Diagnosis - Palpitations rt Followup: rt - With: Private Physician - When: 2 - 3 days - Reason: Discharge Instructions: - Discharge Summary Sheet rt - Palpitations rt Forms: - Medication Reconciliation Form rt - Thank You Letter rt - Antibiotic Education rt - Prescription Opioid Use rt Signatures: Dispatcher [employer] EDCecilia Lemon, RN RN ll1 Rut Bingham RN RN ld1 Glen Bain MD MD rt Corrections: (The following items were deleted from the chart) 11:54 11:32 Test, Urine+UC.LAB.BRZ ordered. EDMS EDMS
--- NOTE | 2023-01-09 12:49 | ER ---
Nurse's Notes [facility] Name: Kristen Yadav Age: 47 yrs Sex: Female : 1975 Arrival Date: 01/09/2023 Time: 11:08 Bed 17 Private MD: Festus Rubio Diagnosis: Palpitations Presentation: 01/09 11:19 Chief complaint: Patient states: "Chest tightness, skipping a beat, takes my breath ld1 away" X 3 days. Coronavirus screen: At this time, the client does not indicate any symptoms associated with coronavirus-19. Ebola Screen: No symptoms or risks identified at this time. Initial Sepsis Screen: Does the patient meet any 2 criteria? No. Patient's initial sepsis screen is negative. Does the patient have a suspected source of infection? No. Patient's initial sepsis screen is negative. Risk Assessment: Do you want to hurt yourself or someone else? Patient reports no desire to harm self or others. Onset of symptoms was January 09, 2023. 11:19 Method Of Arrival: Ambulatory ld1 11:19 Acuity: ELINA 3 ld1 Triage Assessment: 11:20 General: Appears in no apparent distress. comfortable, Behavior is calm, cooperative, ld1 appropriate for age. Pain: Denies pain. EENT: No signs and/or symptoms were reported regarding the EENT system. Neuro: Level of Consciousness is awake, alert, obeys commands, Oriented to person, place, time, situation. Cardiovascular: Capillary refill < 3 seconds Patient's skin is warm and dry. Respiratory: Airway is patent Respiratory effort is even, unlabored. GI: Abdomen is round non-distended. : No signs and/or symptoms were reported regarding the genitourinary system. Derm: No signs and/or symptoms reported regarding the dermatologic system. Musculoskeletal: No signs and/or symptoms reported regarding the musculoskeletal system. CPC: 13:09 LMP N/A - control method ph Historical: - Allergies: 11:20 Sulfa (Sulfonamide Antibiotics); ld1 - Home Meds: 11:20 lisinopril 20 mg Oral tab 1 tab once daily [Active]; ld1 - PMHx: 11:20 Hypertension; ld1 - PSHx: 11:20 section; ld1 - Immunization history:: Adult Immunizations up to date, Client reports receiving the 2nd dose of the Covid vaccine. - Social history:: Smoking status: Patient reports the use of cigarette tobacco products, smokes one pack cigarettes per day. Patient/guardian denies using alcohol. - Family history:: not pertinent. Screenin:56 [facility] ED Fall Risk Assessment (Adult) Score/Fall Risk Level 0 - 2 = Low Risk ll1 Oriented to surroundings, Maintained a safe environment, Educated pt \\T\\ family on fall prevention, incl call for assistance when getting out of bed, Hourly rounding (assess needs \\T\\ fall precautionary measures) done. Abuse screen: Denies threats or abuse. Nutritional screening: No deficits noted. Tuberculosis screening: No symptoms or risk factors identified. Assessment: 11:55 Reassessment: No changes from previously documented assessment. Patient and/or family ll1 updated on plan of care and expected duration. Pain level reassessed. Patient is alert, oriented x 3, equal unlabored respirations, skin warm/dry/pink. 12:45 Reassessment: No changes from previously documented assessment. Patient and/or family ph updated on plan of care and expected duration. Pain level reassessed. 13:07 Reassessment: No changes from previously documented assessment. Patient and/or family ph updated on plan of care and expected duration. Pain level reassessed. Patient is alert, oriented x 3, equal unlabored respirations, skin warm/dry/pink. 13:09 Pain: Pain does not radiate. Pain began 2-3 days ago. ph Vital Signs: 11:19 BP 174 / 91; Pulse 65; Resp 20; Temp 97.8; Pulse Ox 100% on R/A; Weight 72.57 kg; ld1 Height 5 ft. 3 in. ; Pain 0/10; 11:56 BP 139 / 87; Pulse 61; Pulse Ox 100% on R/A; ll1 13:07 BP 143 / 90; Pulse 54; Resp 17; Pulse Ox 100% ; Pain 0/10; ph 11:19 Body Mass Index 28.34 (72.57 kg, 160.02 cm) ld1 11:19 Pain Scale: Adult ld1 13:07 Pain Scale: Adult ph ED Course: 11:09 Patient arrived in ED. rg4 11:09 Festus Rubio DO is Private Physician. rg4 11:16 Glen Bain MD is Attending Physician. rt 11:20 Triage completed. ld1 11:20 Arm band placed on right wrist. EKG completed in triage. Results shown to MD. ld1 11:23 Cecilia Pardo, RN is Primary Nurse. ll1 11:42 [facility] Sent. ll1 11:52 Client placed on continuous cardiac and pulse oximetry monitoring. NIBP monitoring ll1 applied. environmental monitoring technician on. 11:52 Inserted saline lock: 22 gauge in right antecubital area, using aseptic technique. ll1 Blood collected. 11:56 Patient has correct armband on for positive identification. Bed in low position. Call ll1 light in reach. 11:56 Patient maintains SpO2 saturation greater than 95% on room air. ll1 12:04 XRAY Chest (1 view) In Process Unspecified. EDMS 13:08 No provider procedures requiring assistance completed. IV discontinued, intact, ph bleeding controlled, No redness/swelling at site. Pressure dressing applied. Administered Medications: No medications were administered Medication: 11:56 VIS not applicable for this client. ll1 Outcome: 12:48 Discharge ordered by MD. rt 13:09 Discharged to home ambulatory. ph 13:09 Condition: stable 13:09 Discharge instructions given to patient, Instructed on discharge instructions, follow up and referral plans. Demonstrated understanding of instructions, follow-up care. 13:09 Patient left the ED. ph Signatures: Dispatcher [employer] EDVT Lauren Akins RN Ariana Love ph rg4 Cecilia Pardo RN RN ll1 Rut Bingham RN RN ld1 Glen Bain MD MD rt Corrections: (The following items were deleted from the chart) 11:54 11:42 Test, Urine+[id number] drawn and sent. ll1 EDMS
[2023-01-09 13:43] VITALS: TEMP 97.8; O2SAT 100
[2023-01-09 13:46] VITALS: BP 143/90
--- NOTE | 2023-01-10 05:36 | EKG ---
Test Date: 2023-01-09 Test Time: 11:20:22 Administrative Project Coordinator: Anya OSMAN MEASUREMENT RESULTS: Intervals: Rate: 65 HI: 160 QRSD: 96 QT: 446 QTc: 463 [place]: P: 53 HI: 160 QRS: 51 T: 60 INTERPRETIVE STATEMENTS: Normal sinus rhythm Possible Lateral infarct, age undetermined Abnormal ECG Compared to ECG 02/26/2019 09:45:40 No significant changes Electronically Signed On 01-10-23 05:33:09 CDT by Efrem Fajardo
== END 2023-01-09 13:09 | disposition home or self-care (01) ==
LOC: ER 11:08
DX: R00.2 Palpitations (principal); I10 Essential (primary) hypertension; F17.210 Nicotine dependence, cigarettes, uncomplicated; Z88.2 Allergy status to sulfonamides
CPT/HCPCS: 36415; 71045; 80048; 81001; 83735; 84443; 84484; 85025; 93005; 99285

== ENCOUNTER 2023-08-10 09:42 | Emergency (ER) | payer OTHER ==
--- OUTSIDE RECORDS SUMMARY | 2023-08-10 09:46 | XMS REPORT | Continuity of Care Document ---
Author Name Unknown Address [address] [facility] [address] [place] [address] [facility] Address [address] [facility] [address] [place] [address] Care Team Providers Care Passport Support Associate Name Role Phone Pcp, Patient Does Not Have A Primary Care Physic reese Festus Rubio Attending Clinician Unavailable KELI ROONEY Attending Clinician KELI Harley Attending Clinician LINO Zarate Attending Clinician Unavailable ARVIND YAP Attending Clinician KELI Monique Admitting Clinician Rosey melgar Payers Payer Name Policy Type Policy Number Effective Date Expirati on Date Source [employer]/TSH B 53 [id number] 2022 00:00:00 [facility] AETNA-90 DEGREE BENEFITS 2 [id number] 2022 00:00:00 [facility] 6 [id number] 2020 00:00:00 [facility] Problems Condition Name Condition Details Condition Category Status Onset Date Resolution Date Last Treatment Date Treating Clinician Comments Source 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 [facility] Generalize d anxiety disorder Generalize d anxiety disorder Disease Active 2013-09 00:00: 00 [facility] Heavy menses Heavy menses Disease Active 2013-09 00:00: 00 [facility] Need for Tdap vaccinatio n Need for Tdap vaccinatio n Disease Active 2013-09 00:00: 00 [facility] [id number] Liver lesion, right lobe Problem [facility] [id number] Depression , major, single episode, severe Problem [facility] [id number] Halitosis Problem Commo n [facility] [id number] Obstructiv e sleep apnea (adult) (pediatric ) Problem [facility] [id number] Benign essential HTN Problem Common [facility] [id number] Dependence on other enabling machines and devices Problem Common [facility] [id number] Mixed hyperlipid emia Problem [facility] [id number] Depression with anxiety Problem [facility] [id number] Primary insomnia Problem [facility] Allergies, Adverse Reactions, Alerts Allergy Name Allergy Type Status Severity Reaction(s) Onset Date Inactive Date Treating Clinician Comments Source Sulfa (Sulfona mide Antibiot ics) Propensi ty to adverse reaction s Active Swelling 2013-09 00:00: 00 [facility] SULFA (SULFONA MIDE ANTIBIOT ICS) Drug Class Active Swelling 2013-09 00:00: 00 [facility] [address]77 Drug allergy Active Fever, Swelling [facility] Social History Social Habit Start Date Stop Date Quantity Comments Source History of Tobacco Use Current Smoker [facility] 2023-08-01 00:00:00 2023-08-01 00:00:00 Current non-drinker of alcohol (finding) [facility] History of Social function 2023-08-01 00:00:00 2023-08-01 00:00:00 [facility] Cigarettes smoked current (pack per day) - Reported 2014-07-25 00:00:00 2014-07-25 00:00:00 [facility] Cigarette pack-years 2014-07-25 00:00:00 2014-07-25 00:00:00 [facility] Tobacco use and exposure 2014-07-25 00:00:00 2014-07-25 00:00:00 Smokeless tobacco non-user [facility] Sex Assigned At 1975 00:00:00 1975 00:00:00 [facility] Smoking Status Start Date Stop Date Source Smokes tobacco daily 2014-07-25 00:00:00 [facility] Medications Ordered Medication Name Filled Medication Name Start Date Stop Date Current Medication? Ordering Clinician Indication Dosage Frequency Signature (SIG) Comments Components Source Nitrofurant oin Macrocrysta l 100 MG Nitrofurant oin Macrocrysta l 100 MG 2022-09 00:00: 00 No 1{capsu le_with _food_o r_milk} BID Nitrofuran toin Macrocryst al 100 MG estradioL 0.01 % (0.1 mg/gram) vaginal cream 02-24 00:00: 00 Yes [id number] 2g Insert 2 g into vagina 2 (two) times per week. [facility] estradioL 0.01 % (0.1 mg/gram) vaginal cream 02-24 00:00: 00 Yes [id number] 2g Insert 2 g into vagina 2 (two) times per week. [facility] estradioL 0.01 % (0.1 mg/gram) vaginal cream 02-24 00:00: 00 Yes [id number] 2g Insert 2 g into vagina 2 (two) times per week. [facility] estradioL 0.01 % (0.1 mg/gram) vaginal cream 0 02-24 00:00: 00 Yes [id number] 2g Insert 2 g into vagina 2 (two) times per week. [facility] estradioL 0.01 % (0.1 mg/gram) vaginal cream 02-24 00:00: 00 Yes [id number] 2g Insert 2 g into vagina 2 (two) times per week. [facility] buPROPion 75 mg tablet 0 02-21 13:52: 22 Yes 75mg Take 1 tablet by mouth in the morning. [facility] lisinopriL 20 mg tablet 2022-0 02-21 13:52: 22 Yes 20mg Take 1 tablet by mouth in the morning. [facility] buPROPion 75 mg tablet 2022-0 02-21 13:52: 22 Yes 75mg Take 1 tablet by mouth in the morning. [facility] lisinopriL 20 mg tablet 2022-0 02-21 13:52: 22 Yes 20mg Take 1 tablet by mouth in the morning. [facility] buPROPion 75 mg tablet 2022-0 02-21 13:52: 22 Yes 75mg Take 1 tablet by mouth in the morning. [facility] lisinopriL 20 mg tablet 2022-0 02-21 13:52: 22 Yes 20mg Take 1 tablet by mouth in the morning. [facility] buPROPion 75 mg tablet 3-0 - 13:52: 22 Yes 75mg Take 1 tablet by mouth in the morning. [facility] lisinopriL 20 mg tablet 2022-0 02-21 13:52: 22 Yes 20mg Take 1 tablet by mouth in the morning. [facility] buPROPion 75 mg tablet 2022-0 02-21 13:52: 22 Yes 75mg Take 1 tablet by mouth in the morning. [facility] lisinopriL 20 mg tablet 6-23 13:52: 22 Yes 20mg Take 1 tablet by mouth in the morning. [facility] Amoxicillin -Pot Clavulanate 875-125 MG Amoxicillin -Pot Clavulanate 875-125 MG 2021-09 00:00: 00 08-03 00:00 :00 No 1{table t} BID Amoxicilli n-Pot Clavulanat e 875-125 MG Amoxicillin -Pot Clavulanate 875-125 MG Amoxicillin -Pot Clavulanate 875-125 MG 2021-09 00:00: 00 08-03 00:00 :00 No 1{table t} BID Amoxicilli n-Pot Clavulanat e 875-125 MG Nicotine 21 MG/24HR Nicotine 21 MG/24HR 2021-0 8-04 00:00: 00 06-03 00:00 :00 No 1{patch _to_ski n} QD Nicotine 21 MG/24HR Nicotine 21 MG/24HR Nicotine 21 MG/24HR 2021-0 8-04 00:00: 00 06-03 00:00 :00 No 1{patch _to_ski n} QD Nicotine 21 MG/24HR Nicotine 21 MG/24HR Nicotine 21 MG/24HR 2021-0 8-04 00:00: 00 06-03 00:00 :00 No 1{patch _to_ski n} QD Nicotine 21 MG/24HR Nicotine 21 MG/24HR Nicotine 21 MG/24HR 2021-0 8-04 00:00: 00 06-03 00:00 :00 No 1{patch _to_ski n} QD Nicotine 21 MG/24HR buPROPion HCl ER (SR) 100 MG buPROPion HCl ER (SR) 100 MG 2020-09 00:00: 00 No 1{table t_in_th e_morni ng} QD buPROPion HCl ER (SR) 100 MG traZODone HCl 50 MG traZODone HCl 50 MG 2020-09 00:00: 00 No 1{table t_at_be dtime_a s_neede d} QD traZODone HCl 50 MG buPROPion HCl ER (SR) 100 MG buPROPion HCl ER (SR) 100 MG 2020-09 00:00: 00 No 1{table t_in_th e_morni ng} QD buPROPion HCl ER (SR) 100 MG traZODone HCl 50 MG traZODone HCl 50 MG 2020-09 00:00: 00 No 1{table t_at_be dtime_a s_neede d} QD traZODone HCl 50 MG buPROPion HCl ER (SR) 100 MG buPROPion HCl ER (SR) 100 MG 2020-09 00:00: 00 No 1{table t_in_th e_morni ng} QD buPROPion HCl ER (SR) 100 MG traZODone HCl 50 MG traZODone HCl 50 MG 2020-09 00:00: 00 No 1{table t_at_be dtime_a s_neede d} QD traZODone HCl 50 MG buPROPion HCl ER (SR) 100 MG buPROPion HCl ER (SR) 100 MG 2020-09 00:00: 00 No 1{table t_in_th e_morni ng} QD buPROPion HCl ER (SR) 100 MG traZODone HCl 50 MG traZODone HCl 50 MG 2020-09 00:00: 00 No 1{table t_at_be dtime_a s_neede d} QD traZODone HCl 50 MG buPROPion HCl ER (SR) 100 MG buPROPion HCl ER (SR) 100 MG 2020-09 00:00: 00 No 1{table t_in_th e_morni ng} QD buPROPion HCl ER (SR) 100 MG traZODone HCl 50 MG traZODone HCl 50 MG 2020-09 00:00: 00 No 1{table t_at_be dtime_a s_neede d} QD traZODone HCl 50 MG Chantix Continuing Month Efraín 1 MG Chantix Continuing Month Efraín 1 MG - 00:00: 00 09-29 00:00 :00 No BID Chantix Continuing Month Efraín 1 MG Chantix Continuing Month Efraín 1 MG Chantix Continuing Month Efraín 1 MG No BID Chantix Continuing Month Efraín 1 MG Lisinopril 20 MG Lisinopril 20 MG No QD Lisinopril 20 MG Chantix Continuing Month Efraín 1 MG Chantix Continuing Month Efraín 1 MG No BID Chantix Continuing Month Efraín 1 MG Lisinopril 20 MG Lisinopril 20 MG No QD Lisinopril 20 MG Chantix Continuing Month Efraín 1 MG Chantix Continuing Month Efraín 1 MG No BID Chantix Continuing Month Efraín 1 MG Chantix Continuing Month Efraín 1 MG Chantix Continuing Month Efraín 1 MG No BID Chantix Continuing Month Efraín 1 MG Lisinopril 20 MG Lisinopril 20 MG No QD Lisinopril 20 MG Lisinopril 20 MG Lisinopril 20 MG No Lisinopril 20 MG Chantix Continuing Month Efraín 1 MG Chantix Continuing Month Efraín 1 MG No BID Chantix Continuing Month Efraín 1 MG Lisinopril 20 MG Lisinopril 20 MG No QD Lisinopril 20 MG Lisinopril 20 MG Lisinopril 20 MG No Lisinopril 20 MG Lisinopril 20 MG Lisinopril 20 MG No QD Lisinopril 20 MG Chantix Continuing Month Efraín 1 MG Chantix Continuing Month Efraín 1 MG No BID Chantix Continuing Month Efraín 1 MG Lisinopril 20 MG Lisinopril 20 MG No Lisinopril 20 MG Lisinopril 20 MG Lisinopril 20 MG No QD Lisinopril 20 MG Chantix Continuing Month Efraín 1 MG Chantix Continuing Month Efraín 1 MG No BID Chantix Continuing Month Efraín 1 MG Lisinopril 20 MG Lisinopril 20 MG No Lisinopril 20 MG Lisinopril 20 MG Lisinopril 20 MG No Lisinopril 20 MG Lisinopril 20 MG Lisinopril 20 MG No QD Lisinopril 20 MG Lisinopril 20 MG Lisinopril 20 MG No Lisinopril 20 MG Lisinopril 20 MG Lisinopril 20 MG No QD Lisinopril 20 MG Lisinopril 20 MG Lisinopril 20 MG No Lisinopril 20 MG Lisinopril 20 MG Lisinopril 20 MG No QD Lisinopril 20 MG Lisinopril 20 MG Lisinopril 20 MG No Lisinopril 20 MG Lisinopril 20 MG Lisinopril 20 MG No QD Lisinopril 20 MG Lisinopril 20 MG Lisinopril 20 MG No Lisinopril 20 MG Nicotine 21 MG/24HR Nicotine 21 MG/24HR No 1{patch _to_ski n} QD Nicotine 21 MG/24HR Lisinopril 20 MG Lisinopril 20 MG No QD Lisinopril 20 MG Lisinopril 20 MG Lisinopril 20 MG No Lisinopril 20 MG Nicotine 21 MG/24HR Nicotine 21 MG/24HR No 1{patch _to_ski n} QD Nicotine 21 MG/24HR Lisinopril 20 MG Lisinopril 20 MG No QD Lisinopril 20 MG Lisinopril 20 MG Lisinopril 20 MG No QD Lisinopril 20 MG Lisinopril 20 MG Lisinopril 20 MG No Lisinopril 20 MG Nicotine 21 MG/24HR Nicotine 21 MG/24HR No 1{patch _to_ski n} QD Nicotine 21 MG/24HR Lisinopril 20 MG Lisinopril 20 MG No QD Lisinopril 20 MG Lisinopril 20 MG Lisinopril 20 MG No Lisinopril 20 MG Lisinopril 20 MG Lisinopril 20 MG No QD Lisinopril 20 MG Chantix Continuing Month Efraín 1 MG Chantix Continuing Month Efraín 1 MG No BID Chantix Continuing Month Efraín 1 MG Lisinopril 20 MG Lisinopril 20 MG No QD Lisinopril 20 MG Chantix Continuing Month Efraín 1 MG Chantix Continuing Month Efraín 1 MG No BID Chantix Continuing Month Efraín 1 MG Lisinopril 20 MG Lisinopril 20 MG No QD Lisinopril 20 MG Chantix Continuing Month Efraín 1 MG Chantix Continuing Month Efraín 1 MG No BID Chantix Continuing Month Efraín 1 MG Lisinopril 20 MG Lisinopril 20 MG No QD Lisinopril 20 MG Vital Signs Vital Name Observation Time Observation Value Comments S ource Systolic blood pressure 2023-02-21 18:57:00 138 mm[Hg] [facility] Diastolic blood pressure 2023-02-21 18:57:00 77 mm[Hg] [facility] Heart rate 2023-02-21 18:56:00 76 /min [facility] Body temperature 2023-02-21 18:56:00 37.17 Grecia [facility] Respiratory rate 2023-02-21 18:56:00 18 /min [facility] Body height 2023-02-21 18:56:00 160 cm [facility] Body weight 2023-02-21 18:56:00 73.936 kg [facility] BMI 2023-02-21 18:56:00 28.87 kg/m2 [facility] Oxygen saturation in Arterial blood by Pulse oximetry 2023-02-21 18:56:00 98 /min [facility] height 2023-02-19 15:20:00 63 [in_i] Commo n [facility] weight 2023-02-19 15:20:00 161.2 [lb_av] Co mmon [facility] temperature 2023-02-19 15:20:00 98.3 [degF] Com mon [facility] bmi 2023-02-19 15:20:00 28.55 kg/m2 Comm on [facility] oximetry 2023-02-19 15:20:00 97 % Commo n [facility] respiratory rate 2023-02-19 15:20:00 18 /min [facility] blood pressure systolic 2023-02-19 15:20:00 123 mm[Hg] [facility] blood pressure diastolic 2023-02-19 15:20:00 73 mm[Hg] [facility] height 2022-08-20 11:40:00 63 [in_i] Commo n [facility] weight 2022-08-20 11:40:00 155 [lb_av] Comm on [facility] temperature 2022-08-20 11:40:00 98 [degF] Comm on [facility] bmi 2022-08-20 11:40:00 27.45 kg/m2 Comm on [facility] blood pressure systolic 2022-08-20 11:40:00 128 mm[Hg] [facility] blood pressure diastolic 2022-08-20 11:40:00 73 mm[Hg] [facility] height 2022-07-24 15:30:00 63 [in_i] Commo n [facility] weight 2022-07-24 15:30:00 156.9 [lb_av] Co [facility] temperature 2022-07-24 15:30:00 100.9 [degF] Co [facility] bmi 2022-07-24 15:30:00 27.79 kg/m2 Comm on [facility] height 2022-04-04 14:40:00 63 [in_i] Commo n [facility] weight 2022-04-04 14:40:00 154.9 [lb_av] Co [facility] temperature 2022-04-04 14:40:00 98.1 [degF] Com mon [facility] bmi 2022-04-04 14:40:00 27.44 kg/m2 Comm on [facility] oximetry 2022-04-04 14:40:00 98 % Commo n [facility] respiratory rate 2022-04-04 14:40:00 18 /min [facility] blood pressure systolic 2022-04-04 14:40:00 132 mm[Hg] [facility] blood pressure diastolic 2022-04-04 14:40:00 70 mm[Hg] [facility] height 2022-01-17 07:40:00 63 [in_i] Commo n [facility] weight 2022-01-17 07:40:00 153 [lb_av] Comm on [facility] temperature 2022-01-17 07:40:00 98.6 [degF] Com mon [facility] bmi 2022-01-17 07:40:00 27.1 kg/m2 Commo n [facility] blood pressure systolic 2022-01-17 07:40:00 106 mm[Hg] [facility] blood pressure diastolic 2022-01-17 07:40:00 77 mm[Hg] [facility] height 2021-10-02 11:40:00 63 [in_i] Commo n [facility] weight 2021-10-02 11:40:00 161 [lb_av] Comm on [facility] temperature 2021-10-02 11:40:00 101.2 [degF] Co mmon [facility] bmi 2021-10-02 11:40:00 28.52 kg/m2 Comm on [facility] blood pressure systolic 2021-10-02 11:40:00 135 mm[Hg] [facility] blood pressure diastolic 2021-10-02 11:40:00 78 mm[Hg] [facility] height 2021-07-11 08:40:00 63 [in_i] Commo n [facility] weight 2021-07-11 08:40:00 164 [lb_av] Comm on [facility] temperature 2021-07-11 08:40:00 98 [degF] Comm on [facility] bmi 2021-07-11 08:40:00 29.05 kg/m2 Comm on [facility] blood pressure systolic 2021-07-11 08:40:00 132 mm[Hg] [facility] blood pressure diastolic 2021-07-11 08:40:00 70 mm[Hg] [facility] height 2021-06-13 09:00:00 63 [in_i] Commo n [facility] weight 2021-06-13 09:00:00 163.1 [lb_av] Co mmon [facility] temperature 2021-06-13 09:00:00 97.6 [degF] Com mon [facility] bmi 2021-06-13 09:00:00 28.89 kg/m2 Comm on [facility] oximetry 2021-06-13 09:00:00 98 % Commo n [facility] respiratory rate 2021-06-13 09:00:00 16 /min [facility] blood pressure systolic 2021-06-13 09:00:00 138 mm[Hg] [facility] blood pressure diastolic 2021-06-13 09:00:00 75 mm[Hg] [facility] Procedures Procedure Date / Time Performed Performing Clinician Source BI SCREENING TOMOSYNTHESIS BILATERAL 2023-08-01 19:57:31 Keli Rooney [facility] Encounters Start Date/Time End Date/Time Encounter Type Admission Type Attending Clinicians Care Facility Care Department Encounter ID Source 2023-02-17 10:01:01 Outpatient Rubio, Festus STLC STLC [id number] [facility] 2022-08-16 10:08:02 Outpatient Rubio, Festus STLC STLC [id number] [facility] 2022-07-18 10:51:01 Outpatient Rubio, Festus STLC STLMLC [id number] [facility] 2021-10-04 13:50:01 Outpatient Rubio, Festus STLC STLMLC [id number] [facility] 2021-09-26 13:39:47 Outpatient Rubio, Festus STLC STLMLC [id number] [facility] 2021-09-26 13:33:21 Outpatient Rubio, Festus STLC STLMLC [id number] [facility] 2021-09-26 13:14:23 Outpatient Rubio, Festus STLC STLMLC [id number] [facility] 2023-08-06 00:00:00 2023-08-06 00:00:00 Telephone Amarjit sFelicitaKeli [facility] [id number] [facility] 2023-08-01 13:32:39 2023-08-01 23:59:00 Outpatient R GALVEZ-GILL S, KELI GALVEZ-GILL S, KELI [facility] [id number] [facility] 2023-08-01 13:32:39 2023-08-01 23:59:00 [facility] Encounter Galvez-Gill s, Keli [facility] [id number] [facility] 2023-06-13 14:45:00 2023-06-13 14:45:00 Outpatient R GALVEZ-GILL S, KELI GALVEZ-GILL S, KELI [facility] [id number] [facility] 2023-06-12 00:00:00 2023-06-12 00:00:00 Tele[facility] [id number] [facility] 2023-04-03 00:00:00 2023-04-03 00:00:00 Outpatient R GALVEZ-GILL S, KELI GALVEZ-GILL S, KELI [facility] [id number] [facility] 2023-02-21 14:00:00 2023-02-21 14:20:17 Outpatient R GALVEZ-GILL S, KELI GALVEZ-GILL S, KELI [facility] [id number] [facility] 2023-02-21 14:00:2023-02-21 14:20:17 Office Visit Keli Mcwilliams [facility] [id number] [facility] 2023-02-19 00:00:00 2023-02-19 00:00:00 (WELLNESS) Wellness Visit STLMLC STLMLC [id number] [facility] 2023-01-30 08:00:00 2023-01-30 08:00:00 [place] [id number] [facility] 2023-01-09 00:00:00 2023-01-09 00:00:00 Outpatient ARVIND YAP [id number] Christine [facility] 2022-08-20 00:00:00 2022-08-20 00:00:00 OFFICE VISIT ESTAB PT LEVEL 4 STLMLC STLMLC [id number] [facility] 2022-07-24 00:00:00 2022-07-24 00:00:00 (TEL) STLMLC STLMLC [id number] [facility] 2022-07-24 00:00:00 2022-07-24 00:00:00 OFFICE VISIT EST PT LEVEL 3 STLMLC STLMLC [id number] [facility] 2022-04-25 00:00:00 2022-04-25 00:00:00 (TEL) STLMLC STLMLC [id number] [facility] 2022-04-12 00:00:00 2022-04-12 00:00:00 (TEL) STLMLC STLMLC [id number] [facility] 2022-04-04 00:00:00 2022-04-04 00:00:00 (WELLNESS) Wellness Visit STLMLC STLMLC [id number] [facility] 2022-04-03 00:00:00 2022-04-03 00:00:00 (TEL) STLMLC STLMLC [id number] [facility] 2022-01-29 00:00:00 2022-01-29 00:00:00 (TEL) STLMLC STLMLC [id number] [facility] 2022-01-17 00:00:00 2022-01-17 00:00:00 OFFICE VISIT EST PT LEVEL 3 STLMLC STLMLC [id number] [facility] 2022-01-10 00:00:00 2022-01-10 00:00:00 (TEL) STLMLC STLMLC [id number] [facility] 2021-10-02 00:00:00 2021-10-02 00:00:00 OFFICE VISIT EST PT LEVEL 3 STLMLC STLMLC [id number] [facility] 2021-08-02 00:00:00 2021-08-02 00:00:00 (TEL) STLMLC STLMLC [id number] [facility] 2021-07-30 00:00:00 2021-07-30 00:00:00 (TEL) STLMLC STLMLC [id number] [facility] 2021-07-18 00:00:00 2021-07-18 00:00:00 (TEL) STLMLC STLMLC [id number] [facility] 2021-07-11 00:00:00 2021-07-11 00:00:00 OFFICE VISIT ESTAB PT LEVEL 4 STLMLC STLMLC [id number] [facility] 2021-07-09 00:00:00 2021-07-09 00:00:00 (TEL) STLMLC STLMLC [id number] [facility] 2021-06-13 00:00:00 2021-06-13 00:00:00 OFFICE VISIT ESTAB PT LEVEL 4 STLMLC STLMLC [id number] [facility] 2021-05-11 00:00:00 2021-05-11 00:00:00 (TEL) STLMLC STLMLC [id number] [facility] 2021-04-18 00:00:00 2021-04-18 00:00:00 Outpatient [facility] [id number] [facility] 2021-04-17 00:00:00 2021-04-17 00:00:00 Outpatient [facility] [id number] [facility] 2021-04-03 00:00:00 2021-04-03 00:00:00 Outpatient [facility] [id number] [facility] 2021-03-08 00:00:00 2021-03-08 00:00:00 Outpatient [facility] [id number] [facility] 2021-02-12 00:00:00 2021-02-12 00:00:00 Outpatient [facility] [id number] [facility] Results Test Description Test Time Test Comments Results Result Co mments Source HEMOGLOBIN [id number] 00:00:00* Test Item Value Reference Range Interpretation Comme nts HEMOGLOBIN A1c (test code = 4548-4) 5.6 % See_Comment [Automated [employer]] The system which generated this result transmitted reference range: 4.2-5.6 %. The reference range was not used to interpret this result as normal/abnormal. TSH REFLEX TO FREE [id number] 00:00:00* Test Item Value Reference Range Interpretation Comme nts TSH REFLEX TO FREE T4 (test code = 94075-2) 1.430 UIU/ML See_Comment [Automated [employer]] The system which generated this result transmitted reference range: 0.400-4.100 UIU/ML. The reference range was not used to interpret this result as normal/abnormal. HEPATITIS C [id number] 00:00:00* Test Item Value Reference Range Interpretation Comme nts HEPATITIS C ANTIBODY (test c ode = 38696-8) NON-REACTIVE NON-REACTIVE URINALYSIS (CULTURE IF INDICATED)2023-02-19 00:00:00* Test Item Value Reference Range Interpretation Comme nts APPEARANCE (test code = 5767-9) CLEAR CLEAR BILIRUBIN (test code = 5770-3) NEGATIVE NEGATIVE COLOR (test code = 5778-6) YELLOW YELLOW-STRAW GLUCOSE (test code = 5792-7) NEGATIVE NEGATIVE KETONES (test code = 5797-6) NEGATIVE NEGATIVE LEUKOCYTE ESTERASE (test code = 5799-2) NEGATIVE NEGATIVE NITRITE (test code = 5802-4) NEGATIVE NEGATIVE OCCULT BLOOD (test code = 11800-0) NEGATIVE NEGATIVE pH (test code = 5803-2) 5.5 5.0-9.0 PROTEIN (test code = 86744-5) NEGATIVE NEGATIVE SPECIFIC GRAVITY (test code = 5811-5) 1.012 1.005-1.035 UROBILINOGEN (test code = 27865-5) 0.2 MG/DL See_Comment [Automated messa ge] The system which generated this result transmitted reference range: <=2.0 MG/DL. The reference range was not used to interpret this result as normal/abnormal. LIPID PANEL WITH REFLEX DIRECT [id number] 00:00:00* Test Item Value Reference Range Interpretation Comme nts CALC LDL CHOL (test code = 04715-7) 147 MG/DL See_Comment H [Automated messa ge] The system which generated this result transmitted reference range: <100 MG/DL. The reference range was not used to interpret this result as normal/abnormal. CHOLESTEROL (test code = 2093-3) 243 MG/DL See_Comment H [Automated messa ge] The system which generated this result transmitted reference range: <200 MG/DL. The reference range was not used to interpret this result as normal/abnormal. HDL CHOLESTEROL (test code = 2085-9) 62 MG/DL See_Comment [Automated messa ge] The system which generated this result transmitted reference range: >39 MG/DL. The reference range was not used to interpret this result as normal/abnormal. RISK RATIO LDL/HDL (test code = 48601-3) 2.37 RATIO See_Comment [Automated message] The system which generated this result transmitted reference range: <3.22 RATIO. The reference range was not used to interpret this result as normal/abnormal. TRIGLYCERIDES (test code = 2571-8) 199 MG/DL See_Comment H [Automated messa ge] The system which generated this result transmitted reference range: <150 MG/DL. The reference range was not used to interpret this result as normal/abnormal. COMPREHENSIVE METABOLIC [id number] 00:00:00* Test Item Value Reference Range Interpretation Comme nts ALBUMIN (test code = 1751-7) 5.0 G/DL See_Comment [Automated messa ge] The system which generated this result transmitted reference range: 3.5-5.2 G/DL. The reference range was not used to interpret this result as normal/abnormal. ALKALINE PHOSPHATASE (test code = 6768-6) 64 U/L See_Comment [Automated message] The system which generated this result transmitted reference range: 40-118 U/L. The reference range was not used to interpret this result as normal/abnormal. BILIRUBIN, TOTAL (test code = 1975-2) 0.3 MG/DL See_Comment [Automated message] The system which generated this result transmitted reference range: <=1.2 MG/DL. The reference range was not used to interpret this result as normal/abnormal. BUN (test code = 3094-0) 16 MG/DL See_Comment [Automated messa ge] The system which generated this result transmitted reference range: 6-20 MG/DL. The reference range was not used to interpret this result as normal/abnormal. CALCIUM (test code = 05686-3) 10.1 MG/DL See_Comment [Automated messa ge] The system which generated this result transmitted reference range: 8.5-10.5 MG/DL. The reference range was not used to interpret this result as normal/abnormal. CALC A/G RATIO (test code = 1759-0) 1.9 RATIO See_Comment [Automated messa ge] The system which generated this result transmitted reference range: 1.0-2.6 RATIO. The reference range was not used to interpret this result as normal/abnormal. CALC BUN/CREAT (test code = 3097-3) 20 RATIO See_Comment [Automated messa ge] The system which generated this result transmitted reference range: 6-28 RATIO. The reference range was not used to interpret this result as normal/abnormal. CALC GLOBULIN (test code = 46827-1) 2.6 G/DL See_Comment [Automated messa ge] The system which generated this result transmitted reference range: 1.9-3.7 G/DL. The reference range was not used to interpret this result as normal/abnormal. CARBON DIOXIDE (test code = 1963-8) 26 MEQ/L See_Comment [Automated messa ge] The system which generated this result transmitted reference range: 19-31 MEQ/L. The reference range was not used to interpret this result as normal/abnormal. CHLORIDE (test code = 2075-0) 102 MEQ/L See_Comment [Automated messa ge] The system which generated this result transmitted reference range: 95-107 MEQ/L. The reference range was not used to interpret this result as normal/abnormal. CREATININE (test code = 2160-0) 0.82 MG/DL See_Comment [Automated messa ge] The system which generated this result transmitted reference range: 0.60-1.30 MG/DL. The reference range was not used to interpret this result as normal/abnormal. eGFR (2020 CKD-EPI) (test code = 51025-3) 89 ML/MIN/1.73 See_Comment [Automated messa ge] The system which generated this result transmitted reference range: >60 ML/MIN/1.73. The reference range was not used to interpret this result as normal/abnormal. GLUCOSE (test code = 1558-6) 100 MG/DL See_Comment H [Automated messa ge] The system which generated this result transmitted reference range: 70-99 MG/DL. The reference range was not used to interpret this result as normal/abnormal. POTASSIUM (test code = 2823-3) 4.0 MEQ/L See_Comment [Automated messa ge] The system which generated this result transmitted reference range: 3.5-5.4 MEQ/L. The reference range was not used to interpret this result as normal/abnormal. PROTEIN, TOTAL (test code = 2885-2) 7.6 G/DL See_Comment [Automated messa ge] The system which generated this result transmitted reference range: 6.1-8.3 G/DL. The reference range was not used to interpret this result as normal/abnormal. AST (test code = 1920-8) 49 U/L See_Comment H [Automated messa ge] The system which generated this result transmitted reference range: 9-40 U/L. The reference range was not used to interpret this result as normal/abnormal. ALT (test code = 1742-6) 31 U/L See_Comment [Automated messa ge] The system which generated this result transmitted reference range: 5-40 U/L. The reference range was not used to interpret this result as normal/abnormal. SODIUM (test code = 2951-2) 144 MEQ/L See_Comment [Automated messa ge] The system which generated this result transmitted reference range: 133-146 MEQ/L. The reference range was not used to interpret this result as normal/abnormal. STREP A [id number] 00:00:00* Test Item Value Reference Range Interpretation Comme nts Result (test code = 93635-2) POSITIVE
[2023-08-10 10:32] LABS: Absolute Lymphocytes (CBC) 2.1 K/uL (0.7-4.9); Hematocrit 45.3 % (36.0-45.0); Lymphocytes % 32.7 % (15.3-44.8); MCV 94.7 fL (80-100); MPV 8.3 fL (7.6-11.3); Platelets 183 thou/uL (152-406); RBC Red Blood Cell Count 4.78 M/uL (3.86-4.86)
[2023-08-10] MEDS ORDERED: NA CHLORIDE 0.9% 1,000 ML ONE (10:45)
[2023-08-10 10:56] LABS: Albumin 3.6 g/dL (3.4-5.0); Bilirubin Direct 0.1 mg/dL (0-0.2); Bilirubin Indirect, Calculated 0.4 mg/dL (0.2-0.8); Bilirubin Total 0.5 mg/dL (0.2-1.0); Protein, Total 7.5 g/dL (6.4-8.2); Thyroid Stimulating Hormone 1.32 uIU/mL (0.358-3.740); Troponin High Sensitivity 5.9 pg/mL (<58.9)
--- NOTE | 2023-08-10 11:14 | ER ---
Nurse's Notes [facility] Name: Kristen Yadav Age: 47 yrs Sex: Female : 1975 Arrival Date: 08/10/2023 Time: 09:42 Bed 12 Private MD: Diagnosis: Adverse effect of caffeine, initial encounter Presentation: 08/10 09:56 Chief complaint: Patient states: she took some Excedrin migraine medicine and had a cup iw of coffee about 3-4 hours ago, she feels like her heart is racing, feels SOB , feels a little panicky , her HR was 125 at home. Coronavirus screen: At this time, the client does not indicate any symptoms associated with coronavirus-19. Ebola Screen: Patient negative for fever greater than or equal to 101.5 degrees Fahrenheit, and additional compatible Ebola Virus Disease symptoms Patient denies exposure to infectious person. Patient denies travel to an Ebola-affected area in the 21 days before illness onset. No symptoms or risks identified at this time. Initial Sepsis Screen: Does the patient meet any 2 criteria? No. Patient's initial sepsis screen is negative. Does the patient have a suspected source of infection? No. Patient's initial sepsis screen is negative. Risk Assessment: Do you want to hurt yourself or someone else? Patient reports no desire to harm self or others. Onset of symptoms was August 10, 2023. 09:56 Method Of Arrival: Ambulatory iw 09:56 Acuity: ELINA 3 iw Triage Assessment: 11:00 General: Appears in no apparent distress. Behavior is calm, cooperative. Pain: Denies iw pain. Historical: - Allergies: 09:57 Sulfa (Sulfonamide Antibiotics); iw - Home Meds: 09:57 lisinopril 20 mg Oral tab 1 tab once daily [Active]; iw - PMHx: 09:57 Hypertension; iw - PSHx: 09:57 section; iw Screenin:27 [facility] ED Fall Risk Assessment (Adult) Score/Fall Risk Level. Abuse screen: Denies iw threats or abuse. Denies injuries from another. Nutritional screening: No deficits noted. Tuberculosis screening: No symptoms or risk factors identified. Assessment: 10:10 General: Appears in no apparent distress. Pain: Pain does not radiate. Pain began. iw Cardiovascular: Reports chest pain, palpitations, Capillary refill < 3 seconds in bilateral fingers. Respiratory: Respiratory effort is even, unlabored, Respiratory pattern is regular, symmetrical. Vital Signs: 09:56 BP 163 / 97; Pulse 82; Resp 16; Temp 98.6; Pulse Ox 100% on R/A; Weight 72.57 kg; iw Height 5 ft. 3 in. ; 09:56 Body Mass Index 28.34 (72.57 kg, 160.02 cm) iw ED Course: 09:44 Patient arrived in ED. mg5 09:46 Keely Polo PA-C is PHCP. sb4 09:46 Chad Bingham DO is Attending Physician. sb4 09:57 Triage completed. iw 09:57 Arm band placed on. iw 10:10 Patient has correct armband on for positive identification. Provided Education on: . iw Client placed on continuous cardiac and pulse oximetry monitoring. NIBP monitoring applied. 10:21 Inserted saline lock: 22 gauge in right antecubital area, using aseptic technique. ds4 Blood collected. 10:28 Ibis Louise RN is Primary Nurse. iw 11:27 No provider procedures requiring assistance completed. IV discontinued, intact, iw bleeding controlled, No redness/swelling at site. Pressure dressing applied. Patient maintains SpO2 saturation greater than 95% on room air. Administered Medications: 10:44 Drug: NS 0.9% IV 1000 ml IV at 1 bolus Per protocol; 1000 mL bolus Route: IV; Rate: 1 iw bolus; Site: right antecubital; 11:44 Follow up: IV Status: Completed infusion iw Medication: 10:10 VIS not applicable for this client. iw Outcome: 11:13 Discharge ordered by . sb4 11:27 Discharged to home ambulatory, iw 11:27 Condition: good 11:27 Discharge instructions given to patient, Instructed on discharge instructions, follow up and referral plans. Demonstrated understanding of instructions, follow-up care, 11:28 Patient left the ED. iw Signatures: Ibis Louise RN RN iw Bashir Byrne ds4 Keely Polo PA-C PA-C sb4 Milena Martin mg5 Corrections: (The following items were deleted from the chart) 09:58 09:56 Pulse 82bpm; Resp 16bpm; Pulse Ox 100% RA; Temp 98.6F; iw iw
--- NOTE | 2023-08-10 11:14 | EDPHYS ---
Physician Documentation [facility] Name: Kristen Yadav Age: 47 yrs Sex: Female : 1975 Arrival Date: 08/10/2023 Time: 09:42 Bed 12 Private MD: ED Physician Chad Bingham HPI: 08/10 10:36 This 47 yrs old Female presents to ER via Ambulatory with complaints of Palpitations. sb4 10:36 patient states she had a headache this morning, took Excedrin with caffeine and had a sb4 cup of coffee a few hours ago. states she is very sensitive to caffeine and later started experiencing chest pain/palpitations. states her apple watch recorded a HR in the 120s. she does believe anxiety is a component, states she was recently told she has small masses in her breast. Historical: - Allergies: 09:57 Sulfa (Sulfonamide Antibiotics); iw - Home Meds: 09:57 lisinopril 20 mg Oral tab 1 tab once daily [Active]; iw - PMHx: 09:57 Hypertension; iw - PSHx: 09:57 section; iw ROS: 10:36 Constitutional: Negative for fever, chills, and weight loss, sb4 10:36 Cardiovascular: Positive for chest pain, palpitations, 10:36 Psych: Positive for anxiety, 10:36 All other systems are negative, Exam: 10:36 Constitutional: This is a well developed, well nourished patient who is awake, alert, sb4 and in no acute distress. Head/Face: Normocephalic, atraumatic. Eyes: Extra-ocular motions intact. Periorbital areas with no swelling, redness, or edema. ENT: Mucous membranes moist. Cardiovascular: Regular rate and rhythm with a normal S1 and S2. Respiratory: Lungs have equal breath sounds bilaterally, clear to auscultation and percussion. No rales, rhonchi or wheezes noted. No increased work of breathing, no retractions or nasal flaring. Abdomen/GI: Soft, non-tender, no distension. Skin: Warm, dry with normal turgor. Normal color with no rashes, no lesions, and no evidence of cellulitis. MS/ Extremity: Pulses equal, no cyanosis. Neurovascular intact. Full, normal range of motion. Neuro: Awake and alert, GCS 15, oriented to person, place, time, and situation. Motor strength 5/5 in all extremities. Sensory grossly intact. Vital Signs: 09:56 BP 163 / 97; Pulse 82; Resp 16; Temp 98.6; Pulse Ox 100% on R/A; Weight 72.57 kg; iw Height 5 ft. 3 in. ; 09:56 Body Mass Index 28.34 (72.57 kg, 160.02 cm) iw MDM: 09:55 Patient medically screened. sb4 10:36 Differential diagnosis: arrythmia, stress disorder, anxiety, adverse effect of sb4 caffeine, hyperthyroidism, PE. Data reviewed:. 11:13 Care significantly affected by the following chronic conditions: Hypertension. sb4 Counseling: I had a detailed discussion with the patient and/or guardian regarding the historical points, exam findings, and any diagnostic results supporting the discharge/admit diagnosis, the presence of at least one elevated blood pressure reading (>120/80) during this emergency department visit, lab results, radiology results, to return to the emergency department if symptoms worsen or persist or if there are any questions or concerns that arise at home. 08/10 10:07 Order name: Basic Metabolic Panel; Complete Time: 10:59 sb4 08/10 10:07 Order name: CBC with Diff; Complete Time: 10:51 sb4 08/10 10:07 Order name: D-Dimer; Complete Time: 10:51 sb4 08/10 10:07 Order name: LFT's; Complete Time: 10:59 sb4 08/10 10:07 Order name: Magnesium; Complete Time: 10:59 sb4 08/10 10:07 Order name: Troponin HS; Complete Time: 10:59 sb4 08/10 10:07 Order name: TSH; Complete Time: 10:59 sb4 08/10 10:07 Order name: EKG; Complete Time: 10:07 sb4 08/10 10:07 Order name: EKG - Nurse/Tech; Complete Time: 10:21 sb4 08/10 10:07 Order name: IV Saline Lock; Complete Time: 10:21 sb4 08/10 10:07 Order name: Labs collected and sent; Complete Time: 10:21 sb4 08/10 10:07 Order name: O2 Per Protocol; Complete Time: 10:21 sb4 08/10 10:07 Order name: O2 Sat Monitoring; Complete Time: 10:21 sb4 EC:28 Rate is 76 beats/min. Rhythm is regular, Normal Sinus Rhythm. QRS [place] is Normal. AR sb4 interval is normal at 146 msec. QRS interval is normal at 96 msec. QT interval is normal at 416 msec. No Q waves. T waves are Normal. No ST changes noted. Clinical impression: Normal ECG. Interpreted by me. Reviewed by me. Administered Medications: 10:44 Drug: NS 0.9% IV 1000 ml IV at 1 bolus Per protocol; 1000 mL bolus Route: IV; Rate: 1 iw bolus; Site: right antecubital; 11:44 Follow up: IV Status: Completed infusion iw Disposition: 10:30 I was immediately available on-site in the Emergency Department for consultation in the ms3 care of the patient. Disposition Summary: 08/10/23 11:13 Discharge Ordered Notes: Location: Home sb4 Problem: new sb4 Symptoms: are resolved sb4 Condition: Stable sb4 Diagnosis - Adverse effect of caffeine, initial encounter sb4 Followup: sb4 - With: Emergency Department - When: As needed - Reason: Trouble breathing, Worsening of condition Discharge Instructions: - Discharge Summary Sheet sb4 - Palpitations, [id number] sb4 Forms: - Medication Reconciliation Form sb4 - Thank You Letter sb4 - Antibiotic Education sb4 - Prescription Opioid Use sb4 - Patient Portal Instructions sb4 - Leadership Thank You Letter sb4 Signatures: Dispatcher [employer] Ibis Albarran, RN Chad Rivera DO DO ms3 Keely Polo PA-C PA-C sb4
[2023-08-10 11:43] VITALS: BP 163/97; TEMP 98.6; O2SAT 100
--- NOTE | 2023-08-12 13:50 | EKG ---
Test Date: 2023-08-10 Test Time: 10:08:47 [employer] Protector: LEELEE MEASUREMENT RESULTS: Intervals: Rate: 76 UT: 146 QRSD: 96 QT: 416 QTc: 468 [place]: P: 63 UT: 146 QRS: 69 T: 86 INTERPRETIVE STATEMENTS: Normal sinus rhythm Normal ECG Compared to ECG 01/09/2023 11:20:22 Myocardial infarct finding no longer present Electronically Signed On 08-12-23 13:41:50 [employer] by Clinton Vernon
== END 2023-08-10 11:28 | disposition home or self-care (01) ==
LOC: ER 09:42
DX: R06.02 Shortness of breath (principal); T43.615A Adverse effect of caffeine, initial encounter; I10 Essential (primary) hypertension; Z88.2 Allergy status to sulfonamides
CPT/HCPCS: 93005; 85025; 80048; 36415; 83735; 85379; 80076; 84443; 84484; 96360; 99285; J7030

== ENCOUNTER 2024-06-09 14:16 | Emergency (ER) | payer OTHER ==
--- OUTSIDE RECORDS SUMMARY | 2024-06-09 14:20 | XMS REPORT | Continuity of Care Document ---
Author Name Unknown Address [address] [facility] [address] [place] [address] [facility] Address [address] [facility] [address] [place] [address] Care Team Providers Care Waitstaff Name Role Phone PCP, PATIENT DOES NOT HAVE A Primary Care Physic Festus Tipton Attending Clinician Unavailable Keli Rooney MD Attending Clinician [phone] KELI ROONEY Attending Clinician Rosey melgar Doctor Unassigned, Emmett Attending Clinician U LINO Awad Attending Clinician Unavailable ARVIND YAP Attending Clinician Unavailable KELI ROONEY Admitting Clinician Rosey melgar Payers Payer Name Policy Type Policy Number Effective Date Expirati on Date Source 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 ICD10 Diagnosis Term [employer] [facility] Generalize d anxiety disorder Generalize d anxiety disorder Disease Active 2013-09 00:00: 00 [facility] Heavy menses Heavy menses Disease Active 2013-09 00:00: 00 [facility] Need for Tdap vaccinatio n Need for Tdap vaccinatio n Disease Active 2013-09 00:00: 00 [facility] [id number] Liver lesion, right lobe Problem [facility] [place] [id number] Depression , major, single episode, severe Problem [facility] [id number] Halitosis Problem Commo n [place] [id number] Obstructiv e sleep apnea (adult) (pediatric ) Problem [facility] [place] [id number] Benign essential HTN Problem [facility] [place] [id number] Dependence on other enabling machines and devices Problem [facility] [place] [id number] Mixed hyperlipid emia Problem [facility] [id number] Depression with anxiety Problem [facility] [id number] Primary insomnia Problem [facility] Allergies, Adverse Reactions, Alerts Allergy Name Allergy Type Status Severity Reaction(s) Onset Date Inactive Date Treating Clinician Comments Source Sulfa (Sulfona mide Antibiot ics) Propensi ty to adverse reaction s Active Swelling 2013-09 00:00: 00 [facility] SULFA (SULFONA MIDE ANTIBIOT ICS) Drug Class Active Swelling 2013-09 00:00: 00 [facility] [id number] Drug allergy Active Fever, Swelling [facility] Social History Social Habit Start Date Stop Date Quantity Comments Source [facility] of Tobacco Use Current Smoker [facility] Alcoholic beverage intake 2023-08-01 00:00:00 2023-08-01 00:00:00 Current non-drinker of alcohol (finding) [facility] Alcohol intake 2023-08-01 00:00:00 2023-08-01 00:00:00 Current non-drinker of alcohol (finding) [facility] History of Social function 2023-08-01 00:00:00 2023-08-01 00:00:00 [facility] Cigarettes smoked current (pack per day) - Reported 2014-07-25 00:00:00 2014-07-25 00:00:00 [facility] Cigarette pack-years 2014-07-25 00:00:00 2014-07-25 00:00:00 [facility] Tobacco use and exposure 2014-07-25 00:00:00 2014-07-25 00:00:00 Smokeless tobacco non-user [facility] Sex assigned at 1975 00:00:00 1975 00:00:00 [facility] Smoking Status Start Date Stop Date Source Smokes tobacco daily 2014-07-25 00:00:00 [facility] Medications Ordered Medication Name Filled Medication Name Start Date Stop Date Current Medication? Ordering Clinician Indication Dosage Frequency Signature (SIG) Comments Components Source Lisinopril- hydroCHLORO thiazide 20-12.5 MG Lisinopril- hydroCHLORO thiazide 20-12.5 MG 2023-09 0-07 00:00: 00 No 1{table t} QD Lisinopril -hydroCHLO ROthiazide 20-12.5 MG estradioL 0.01 % (0.1 mg/gram) vaginal cream 02-24 00:00: 00 Yes [id number] 2g Insert 2 g into vagina 2 (two) times per week. [facility] buPROPion 75 mg tablet 02-21 13:52: 22 Yes 75mg Take 1 tablet by mouth in the morning. [facility] lisinopriL 20 mg tablet 02-21 13:52: 22 Yes 20mg Take 1 tablet by mouth in the morning. [facility] Nicotine 21 MG/24HR Nicotine 21 MG/24HR No 1{patch _to_ski n} QD Nicotine 21 MG/24HR Vital Signs Vital Name Observation Time Observation Value Comments S tanikace height 2024-06-07 16:15:00 63 [in_i] [facility] [place] weight 2024-06-07 16:15:00 176.8 [lb_av] Co mmon [place] temperature 2024-06-07 16:15:00 98 [degF] Comm on [place] bmi 2024-06-07 16:15:00 31.32 kg/m2 Comm on [place] oximetry 2024-06-07 16:15:00 97 % Com[facility] [place] blood pressure systolic 2024-06-07 16:15:00 152 mm[Hg] Common [facility] blood pressure diastolic 2024-06-07 16:15:00 84 mm[Hg] [facility] height 2024-03-16 08:00:00 63 [in_i] Commo n [place] weight 2024-03-16 08:00:00 174.4 [lb_av] Co mmon [place] temperature 2024-03-16 08:00:00 97.9 [degF] Com mon [place] bmi 2024-03-16 08:00:00 30.89 kg/m2 Comm on [place] oximetry 2024-03-16 08:00:00 99 % Com[facility] [place] respiratory rate 2024-03-16 08:00:00 17 /min [facility] [place] blood pressure systolic 2024-03-16 08:00:00 134 mm[Hg] Common [facility] blood pressure diastolic 2024-03-16 08:00:00 80 mm[Hg] Common [facility] height 2023-06-02 16:20:00 63 [in_i] Commo n [place] weight 2023-06-02 16:20:00 163.4 [lb_av] Co mmon [place] temperature 2023-06-02 16:20:00 97.9 [degF] Com mon [place] bmi 2023-06-02 16:20:00 28.94 kg/m2 Comm on [place] oximetry 2023-06-02 16:20:00 98 % Commo [facility] [place] respiratory rate 2023-06-02 16:20:00 18 /min [facility] blood pressure systolic 2023-06-02 16:20:00 130 mm[Hg] Common [facility] blood pressure diastolic 2023-06-02 16:20:00 75 mm[Hg] [facility] Systolic blood pressure 2023-02-21 18:57:00 138 mm[Hg] [facility] Diastolic blood pressure 2023-02-21 18:57:00 77 mm[Hg] [facility] Heart rate 2023-02-21 18:56:00 76 /min [facility] Body temperature 2023-02-21 18:56:00 37.17 Grecia [facility] Respiratory rate 2023-02-21 18:56:00 18 /min [facility] Body height 2023-02-21 18:56:00 160 cm [facility] Body weight 2023-02-21 18:56:00 73.936 kg [facility] BMI 2023-02-21 18:56:00 28.87 kg/m2 [facility] Oxygen saturation in Arterial blood by Pulse oximetry 2023-02-21 18:56:00 98 /min [facility] height 2023-02-19 15:20:00 63 [in_i] Commo [facility] [place] weight 2023-02-19 15:20:00 161.2 [lb_av] Co mmon [place] temperature 2023-02-19 15:20:00 98.3 [degF] Com mon [place] bmi 2023-02-19 15:20:00 28.55 kg/m2 Comm on [place] oximetry 2023-02-19 15:20:00 97 % Commo [facility] [place] respiratory rate 2023-02-19 15:20:00 18 /min [facility] blood pressure systolic 2023-02-19 15:20:00 123 mm[Hg] [facility] blood pressure diastolic 2023-02-19 15:20:00 73 mm[Hg] Common [facility] height 2022-08-20 11:40:00 63 [in_i] Commo n [place] weight 2022-08-20 11:40:00 155 [lb_av] Comm on [place] temperature 2022-08-20 11:40:00 98 [degF] Comm [facility] [place] bmi 2022-08-20 11:40:00 27.45 kg/m2 Comm [facility] [place] blood pressure systolic 2022-08-20 11:40:00 128 mm[Hg] Common [facility] blood pressure diastolic 2022-08-20 11:40:00 73 mm[Hg] Common [facility] height 2022-07-24 15:30:00 63 [in_i] Commo n [place] weight 2022-07-24 15:30:00 156.9 [lb_av] Co [facility] temperature 2022-07-24 15:30:00 100.9 [degF] Co [facility] bmi 2022-07-24 15:30:00 27.79 kg/m2 Comm [facility] [place] height 2022-04-04 14:40:00 63 [in_i] Commo n [place] weight 2022-04-04 14:40:00 154.9 [lb_av] Co [facility] temperature 2022-04-04 14:40:00 98.1 [degF] Com [facility] bmi 2022-04-04 14:40:00 27.44 kg/m2 Comm on [place] oximetry 2022-04-04 14:40:00 98 % Commo [facility] [place] respiratory rate 2022-04-04 14:40:00 18 /min [facility] blood pressure systolic 2022-04-04 14:40:00 132 mm[Hg] [facility] blood pressure diastolic 2022-04-04 14:40:00 70 mm[Hg] Common [facility] height 2022-01-17 07:40:00 63 [in_i] Commo n [place] weight 2022-01-17 07:40:00 153 [lb_av] Comm [facility] [place] temperature 2022-01-17 07:40:00 98.6 [degF] Com [facility] bmi 2022-01-17 07:40:00 27.1 kg/m2 [facility]mo [facility] [place] blood pressure systolic 2022-01-17 07:40:00 106 mm[Hg] [facility] blood pressure diastolic 2022-01-17 07:40:00 77 mm[Hg] Common [facility] height 2021-10-02 11:40:00 63 [in_i] Commo n [place] weight 2021-10-02 11:40:00 161 [lb_av] Comm on [place] temperature 2021-10-02 11:40:00 101.2 [degF] Co mmon [place] bmi 2021-10-02 11:40:00 28.52 kg/m2 Comm [facility] [place] blood pressure systolic 2021-10-02 11:40:00 135 mm[Hg] [facility] blood pressure diastolic 2021-10-02 11:40:00 78 mm[Hg] [facility] height 2021-07-11 08:40:00 63 [in_i] Commo n [place] weight 2021-07-11 08:40:00 164 [lb_av] Comm [facility] [place] temperature 2021-07-11 08:40:00 98 [degF] Comm [facility] [place] bmi 2021-07-11 08:40:00 29.05 kg/m2 Comm [facility] [place] blood pressure systolic 2021-07-11 08:40:00 132 mm[Hg] [facility] blood pressure diastolic 2021-07-11 08:40:00 70 mm[Hg] [facility] height 2021-06-13 09:00:00 63 [in_i] Commo n [place] weight 2021-06-13 09:00:00 163.1 [lb_av] Co mmon [place] temperature 2021-06-13 09:00:00 97.6 [degF] Com mon [place] bmi 2021-06-13 09:00:00 28.89 kg/m2 Comm [facility] [place] oximetry 2021-06-13 09:00:00 98 % Commo [facility] [place] respiratory rate 2021-06-13 09:00:00 16 /min [facility] [place] blood pressure systolic 2021-06-13 09:00:00 138 mm[Hg] [facility] blood pressure diastolic 2021-06-13 09:00:00 75 mm[Hg] [facility] Procedures Procedure Date / Time Performed Performing Clinician Source BI ULTRASOUND BREAST LIMITED BILATERAL 2024-03-30 18:56:00 [facility] BI ULTRASOUND BREAST LIMITED BILATERAL 2023-08-20 19:12:10 [facility] BI SCREENING TOMOSYNTHESIS BILATERAL 2023-08-01 19:57:31 [facility] Encounters Start Date/Time End Date/Time Encounter Type Admission Type Attending Clinicians Care Facility Care Department Encounter ID Source 2024-06-01 14:55:00 Outpatient Rubio, Festus STLMLC STL[facility] [id number] [facility] 2024-05-31 11:03:00 Outpatient Rubio, Festus [facility] ST[facility] [id number] [facility] 2024-03-18 09:12:00 Outpatient Rubio, Festus STL[facility] ST[facility] [id number] [facility] 2024-03-15 15:29:00 Outpatient Rubio, Festus STL[facility] ST[facility] [id number] [facility] 2024-02-19 14:24:00 Outpatient Rubio, Festus [facility] ST[facility] [id number] [facility] 2023-11-07 13:57:00 Outpatient Rubio, Festus [facility] ST[facility] [id number] [facility] 2023-02-17 10:01:01 Outpatient Rubio, Festus [facility] ST[facility] [id number] [facility] 2022-08-16 10:08:02 Outpatient Rubio, Festus [facility] [id number] [facility] 2022-07-18 10:51:01 Outpatient Rubio, Festus [facility] [id number] [facility] 2021-10-04 13:50:01 [facility] [id number] [facility] 2021-09-26 13:39:47 [facility] [id number] [facility] 2021-09-26 13:33:21 [facility] [id number] [facility] 2021-09-26 13:14:23 Outpatient Rubio[facility] Fest[facility] [id number] [facility] 2024-06-07 00:00:00 2024-06-07 00:00:00 (WELLNESS) [facility] [id number] [facility] 2024-06-03 00:00:00 2024-06-03 00:00:00 (TEL) [facility] [id number] [facility] 2024-06-03 00:00:00 2024-06-03 00:00:00 (TEL) STLC STLC [id number] [facility] 2024-05-19 00:00:00 2024-05-19 00:00:00 (TEL) STLC STLC [id number] [facility] 2024-04-22 00:00:00 2024-04-22 00:00:00 (TEL) [facility] [id number] [facility] 2024-03-31 00:00:00 2024-03-31 10:41:25 Case Management Keli Mcwilliams [facility] [id number] 350.1.13.10 [id number] [id number] [facility] 2024-03-30 13:21:03 2024-03-30 23:59:00 Outpatient R GALVEZ-GILL S, KELI GALVEZ-GILL S, KELI [facility] [id number] [facility] 2024-03-30 13:21:03 2024-03-30 23:59:00 Hospital Encounter Galvez-Gill s, Keli [facility] 1.2.840.114 350.1.13.10 [id number] [id number] [facility] 2024-03-23 00:00:00 2024-03-23 00:00:00 (TEL) STLMLC ST[facility] [id number] [facility] 2024-03-21 00:00:00 2024-03-21 00:00:00 (TEL) STLMLC STLMLC [id number] [facility] 2024-03-16 00:00:00 2024-03-16 00:00:00 OFFICE VISIT ESTAB PT LEVEL 4 STLMLC STLMLC [id number] [facility] 2024-03-15 00:00:00 2024-03-15 00:00:00 (TEL) STLMLC STL[facility]C [id number] [facility] 2024-03-02 00:00:00 2024-03-02 00:00:00 Outpatient R GALVEZ-GILL S, KELI GALVEZ-GILL S, KELI [facility] [id number] [facility] 2024-03-01 08:30:00 2024-03-01 08:30:00 Outpatient R GALVEZ-GILL S, KELI GALVEZ-GILL S, KELI [facility] [id number] [facility] 2024-02-17 00:00:00 2024-02-17 00:00:00 Outpatient R GALVEZ-GILL S, KELI GALVEZ-GILL S, KELI [facility] [id number] [facility] 2023-11-25 00:00:00 2023-11-25 00:00:00 (TEL) STLC [facility]LMLC [id number] [facility] 2023-11-12 00:00:00 2023-11-12 00:00:00 (TEL) STLMLC STLC [id number] [facility] 2023-10-27 00:00:00 2023-10-27 00:00:00 (TEL) STLMLC STLC [id number] [facility] 2023-08-21 00:00:00 2023-08-21 00:00:00 Case Management [facility] 1.2.840.114 350.1.13.10 [id number] [id number] [facility] 2023-08-20 12:33:21 2023-08-20 23:59:00 [facility] 1.2.840.114 350.1.13.10 4.2.7.2.686 [id number] [facility] 2023-08-20 12:33:15 2023-08-20 23:59:00 Hospital Encounter Galvez-Gill s, Keli [facility] 1.2.840.114 350.1.13.10 4.2.7.2.686 [id number] [facility] 2023-08-20 00:00:00 2023-08-20 23:59:00 Outpatient R GALVEZ-GILL S, KELI GALVEZ-GILL S, KELI [facility] [id number] [facility] 2023-08-20 00:00:00 2023-08-20 00:00:00 Case Management Galvez-Gill s, Keli [facility] 1.2.840.114 350.1.13.10 4.2.7.2.686 [id number] [facility] 2023-08-11 00:00:00 2023-08-11 00:00:00 Case Management Galvez-Gill s, Keli [facility] 1.2.840.114 350.1.13.10 4.2.7.2.686 [id number] [facility] 2023-08-06 00:00:00 2023-08-06 00:00:00 Patient Secure Msg Doctor Unassigned, Emmett [facility] 1.2.840.114 350.1.13.10 4.2.7.2.686 [id number] [facility] 2023-08-06 00:00:00 2023-08-06 00:00:00 Telephone Galvez-Gill sFelicitaKeli [facility] 1.2.840.114 350.1.13.10 4.2.7.2.686 [id number] [facility] 2023-08-04 00:00:00 2023-08-04 00:00:00 Patient Secure Msg Doctor Unassigned, Emmett [facility] 1.2.840.114 350.1.13.10 4.2.7.2.686 [id number] [facility] 2023-08-01 13:32:39 2023-08-01 23:59:00 Outpatient R GALVEZ-GILL S, KELI GALVEZ-GILL S, KELI [facility] [id number] [facility] 2023-08-01 13:32:39 2023-08-01 23:59:00 Hospital Encounter Galvez-Gill s, Keli [facility] 1.2.840.114 350.1.13.10 4.2.7.2.686 [id number] [facility] 2023-06-13 14:45:00 2023-06-13 14:45:00 Outpatient R GALVEZ-GILL S, KELI GALVEZ-GILL S, KELI [facility] [id number] [facility] 2023-06-12 00:00:00 2023-06-12 00:00:00 Telephone [facility]aKeli [facility] 1.2.840.114 350.1.13.10 4.2.7.2.686 [id number] [facility] 2023-06-02 00:00:00 2023-06-02 00:00:00 (TEL) STLMLC STLMLC [id number] [facility] 2023-06-02 00:00:00 2023-06-02 00:00:00 OFFICE VISIT ESTAB PT LEVEL 3 STLMLC STLMLC [id number] [facility] 2023-04-15 00:00:00 2023-04-15 00:00:00 (TEL) STLMLC STLMLC [id number] [facility] 2023-04-03 00:00:00 2023-04-03 00:00:00 Outpatient R GALVEZ-GILL S, KELI GALVEZ-GILL S, KELI [facility] [id number] [facility] 2023-03-31 00:00:00 2023-03-31 00:00:00 (TEL) STLC STLMLC [id number] [facility] 2023-02-21 14:00:00 2023-02-21 14:20:17 Outpatient R GALVEZ-GILL S, KELI GALVEZ-GILL S, KELI [facility] [id number] [facility] 2023-02-21 14:00:00 2023-02-21 14:20:17 Office Visit [facility]vez[facility]Gill [facility], [facility] 1.2.840.114 350.1.13.10 4.2.7.2.686 [id number] [facility] 2023-02-19 00:00:00 2023-02-19 00:00:00 (WELLNESS) Wellness Visit STLMLC STLMLC [id number] [facility] 2023-01-30 08:00:00 2023-01-30 08:00:00 [place]patient [place] [id number] [facility] 2023-01-09 00:00:00 2023-01-09 00:00:00 Outpatient AMRELY ARVIND [facility]ST[facility] [id number] [facility] 2022-08-20 00:00:00 2022-08-20 00:00:00 OFFICE VISIT ESTAB PT LEVEL 4 STLMLC STLMLC [id number] [facility] 2022-07-24 00:00:00 2022-07-24 00:00:00 (TEL) STLMLC STLMLC [id number] [facility] 2022-07-24 00:00:00 2022-07-24 00:00:00 OFFICE VISIT EST PT LEVEL 3 STLMLC STLMLC [id number] [facility] 2022-04-25 00:00:00 2022-04-25 00:00:00 (TEL) STLMLC STLMLC [id number] [facility] 2022-04-12 00:00:00 2022-04-12 00:00:00 (TEL) STLMLC STLMLC [id number] [facility] 2022-04-04 00:00:00 2022-04-04 00:00:00 (WELLNESS) Wellness Visit STLMLC STLMLC [id number] [facility] 2022-04-03 00:00:00 2022-04-03 00:00:00 (TEL) STLMLC STLMLC [id number] [facility] 2022-01-29 00:00:00 2022-01-29 00:00:00 (TEL) STLMLC STLMLC [id number] [facility] 2022-01-17 00:00:00 2022-01-17 00:00:00 OFFICE VISIT EST PT LEVEL 3 STLMLC STLMLC [id number] [facility] 2022-01-10 00:00:00 2022-01-10 00:00:00 (TEL) STLMLC STLMLC [id number] [facility] 2021-10-02 00:00:00 2021-10-02 00:00:00 OFFICE VISIT EST PT LEVEL 3 STLMLC STLMLC [id number] [facility] 2021-08-02 00:00:00 2021-08-02 00:00:00 (TEL) STLMLC STLMLC [id number] [facility] 2021-07-30 00:00:00 2021-07-30 00:00:00 (TEL) STLMLC STLMLC [id number] [facility] 2021-07-18 00:00:00 2021-07-18 00:00:00 (TEL) STLMLC STLMLC [id number] [facility] 2021-07-11 00:00:00 2021-07-11 00:00:00 OFFICE VISIT ESTAB PT LEVEL 4 STLMLC STLMLC [id number] [facility] 2021-07-09 00:00:00 2021-07-09 00:00:00 (TEL) STLMLC STLMLC [id number] [facility] 2021-06-13 00:00:00 2021-06-13 00:00:00 OFFICE VISIT ESTAB PT LEVEL 4 STLMLC STLMLC [id number] [facility] 2021-05-11 00:00:00 2021-05-11 00:00:00 (TEL) STLMLC STLMLC [id number] [facility] 2021-04-18 00:00:00 2021-04-18 00:00:00 Outpatient STLMLC STLMLC [id number] [facility] 2021-04-17 00:00:00 2021-04-17 00:00:00 [facility] [id number] [facility] 2021-04-03 00:00:00 2021-04-03 00:00:00 [facility] [id number] [facility] 2021-03-08 00:00:00 2021-03-08 00:00:00 [facility] [id number] [facility] 2021-02-12 00:00:00 2021-02-12 00:00:00 Outpatient [facility] [id number] [facility] Results Test Description Test Time Test Comments Results Result Co mments Source BI ULTRASOUND BREAST LIMITED [id number] 19:16:09Examination:BI ULTRASOUND BREAST LIMITED BILATERAL History:Patient is 48 year old and is seen for: Follow-up imaging Comparisons: 08/20/2023 ultrasound Findings:No significant interval change to slightly decreased size in the previously described probable complicated cyst, including: -Left breast 2:00 4 cm from the nipple measuring 3 x 3 x 1 mm (compared to 3 x 3 x 1 mm on the prior imaging)-Right breast 9:00 5 cm from the nipple measuring 4 x 4 x 2 mm (compared to 5 x 4 x 2 mm on the prior imaging). No abnormal lymph nodes identified within either axilla. Impression:No significant interval change to slightly decreased size in the bilateral probable complicated cysts as detailed above.Recommend bilateral diagnostic mammogram and ultrasound in 5 months (due August 2024 at the time of annual exam) to demonstrate continued (1 year) stability and exclude underlying malignancy. ?These findings and recommendations were explained to the patient. Recommendation:Short interval follow-up mammo gram 6 months - BilateralShort interval follow-up ultrasound 6 months - Bilateral ? BI-RADS Category: Both 3 - Probably Benign ?[facility] [id number] 00:00:00* Test Item Value Reference Range Interpretation Comme nts CULTURE, URINE (test code = 630-4) SPECIMEN NUMBER: [id number] A CBC W/AUTO [id number] 00:00:00* Test Item Value Reference Range Interpretation Comme nts NUCLEATED RBCS (test code = 15727-8) 0.0 /100 WBC'S See_Comment [Automated messa ge] The system which generated this result transmitted reference range: 0.0 /100 WBC'S. The reference range was not used to interpret this result as normal/abnormal. ABSOLUTE EOSINOPHILS (test code = 91308-2) 0.17 K/UL See_Comment [Automated messa ge] The system which generated this result transmitted reference range: 0.00-0.50 K/UL. The reference range was not used to interpret this result as normal/abnormal. ABSOLUTE LYMPHOCYTES (test code = 98329-9) 2.45 K/UL See_Comment [Automated messa ge] The system which generated this result transmitted reference range: 1.00-4.00 K/UL. The reference range was not used to interpret this result as normal/abnormal. ABSOLUTE MONOCYTES (test code = 31010-7) 0.48 K/UL See_Comment [Automated messa ge] The system which generated this result transmitted reference range: 0.2-3.8 K/UL. The reference range was not used to interpret this result as normal/abnormal. ABSOLUTE NEUTROPHILS (test code = 79820-1) 4.77 K/UL See_Comment [Automated messa ge] The system which generated this result transmitted reference range: 1.50-7.50 K/UL. The reference range was not used to interpret this result as normal/abnormal. BASOPHILS (test code = 47003-6) 0.5 % EOSINOPHILS (test code = 61143-3) 2.1 % HEMATOCRIT (test code = 78833-0) 45.3 % See_Comment H [Automated messa ge] The system which generated this result transmitted reference range: 34.0-45.0 %. The reference range was not used to interpret this result as normal/abnormal. HEMOGLOBIN (test code = 718-7) 15.8 G/DL See_Comment H [Automated messa ge] The system which generated this result transmitted reference range: 11.5-15.5 G/DL. The reference range was not used to interpret this result as normal/abnormal. LYMPHOCYTES (test code = 66672-1) 30.9 % MCH (test code = 60397-9) 31.8 PG See_Comment [Automated messa ge] The system which generated this result transmitted reference range: 25.0-33.0 PG. The reference range was not used to interpret this result as normal/abnormal. MCHC (test code = 27449-2) 34.9 G/DL See_Comment [Automated messa ge] The system which generated this result transmitted reference range: 31.0-36.0 G/DL. The reference range was not used to interpret this result as normal/abnormal. MCV (test code = 82930-3) 91.1 fL See_Comment [Automated messa ge] The system which generated this result transmitted reference range: 80.0-99.0 fL. The reference range was not used to interpret this result as normal/abnormal. MONOCYTES (test code = 19329-1) 6.1 % NEUTROPHILS (test code = 69527-6) 60.1 % PLATELET COUNT (test code = 66309-0) 213 K/UL See_Comment [Automated messa ge] The system which generated this result transmitted reference range: 130-400 K/UL. The reference range was not used to interpret this result as normal/abnormal. RBC (test code = 40458-8) 4.97 M/UL See_Comment [Automated messa ge] The system which generated this result transmitted reference range: 3.80-5.40 M/UL. The reference range was not used to interpret this result as normal/abnormal. RDW (test code = 09760-2) 12.6 % See_Comment [Automated messa ge] The system which generated this result transmitted reference range: 11.5-15.0 %. The reference range was not used to interpret this result as normal/abnormal. WBC (test code = 59000-2) 7.9 K/UL See_Comment [Automated messa ge] The system which generated this result transmitted reference range: 3.5-11.0 K/UL. The reference range was not used to interpret this result as normal/abnormal. STREP A [id number] 00:00:00* Test Item Value Reference Range Interpretation Comme nts Result (test code = 55826-1) POSITIVE Notes Date/Time Note Provider Source 2023-08-20 13:30:00 Recommendation: Short interval follow-up ultrasound 6 months - Bilateral [facility]
[2024-06-09 15:07] LABS: Absolute Basophils 0.1 K/uL (0-0.5); Absolute Eosinophils 0.3 K/uL (0-0.5); Absolute Lymphocytes (CBC) 3.1 K/uL (0.7-4.9); Absolute Monocytes 0.5 K/uL (0.1-1.3); Absolute Neutrophil 3.3 K/uL (1.8-8.0); Basophils % 0.8 % (0-1.3); Eosinophils % 4.4 % (0-4.4); Hematocrit 44.7 % (36.0-45.0); Hemoglobin 15.7 g/dL (12.0-15.0); Lymphocytes % 42.2 % (15.3-44.8); MCH 32.7 pg (27.0-35.0); MCHC 35.2 g/dL (32.0-36.0); MCV 92.8 fL (80-100); MPV 8.1 fL (7.6-11.3); Monocytes % 6.7 % (3.3-12.3); Neutrophils % 45.9 % (41.7-73.7); Nucleated Red Blood Cells % 0.2 % (0-0); Platelets 251 thou/uL (152-406); RBC Red Blood Cell Count 4.81 M/uL (3.86-4.86)
[2024-06-09 15:11] LABS: ALT/SGPT 46 U/L (13-56); AST/SGOT 29 U/L (15-37); Albumin 4.1 g/dL (3.4-5.0); Albumin/Globulin Ratio 1.1 (1.1-1.8); Alkaline Phosphatase 62 U/L (45-117); Anion Gap 12.8 mEq/L (5.0-15.0); BUN Blood Urea Nitrogen 17 mg/dL (7-18); Bicarbonate 26 mEq/L (21-32); Bilirubin Total 0.3 mg/dL (0.2-1.0); Globulin 3.9 g/dL (2.3-3.5); Glomerular Filtration Rate 93 ml/min (=/>90); Glucose Level 126 mg/dL (74-106); NT PRO-BNP 21 pg/mL (<125); Potassium 3.8 mEq/L (3.5-5.1); Sodium Level 137 mEq/L (136-145); Troponin High Sensitivity 4.7 pg/mL (<58.9)
--- NOTE | 2024-06-09 15:12 | RAD REPORT ---
EXAMINATION: ONE VIEW CHEST XR CLINICAL INDICATION: Female, 48 years old.,CHEST PAIN TECHNIQUE: Frontal chest projection is submitted. Examination is limited by patient positioning and t echnique. COMPARISON: 01/09/2023 FINDINGS: The lungs are well inflated and clear. No pneumothorax or sizable effusion. The heart is normal in s ize. IMPRESSION: No acute intrathoracic abnormalities.
[2024-06-09 15:20] LABS: Bilirubin Direct < 0.2 mg/dL (0-0.2); Bilirubin Indirect, Calculated 0.1 mg/dL (0.2-0.8)
--- NOTE | 2024-06-09 17:12 | RAD REPORT ---
EXAM: Angio Aorta For Dissection HISTORY: [facility] MAIN n/a chest pain, left arm pain Bed Name: COMPARISON: 03/14/2024 TECHNIQUE: Multiple contiguous axial images were obtained a CTA of the chest and abdomen with contras t per aortic dissection protocol. Sagittal and coronal 3-D MIP reformats were performed. One or more of the following dose reduction techniques were used: Automated exposure control, adjustment of the mA and kV according to patient size, and iterative reconstruction. Unless otherwise specified, incidental findings do not require dedicated imaging follow-up. FINDINGS: PULMONARY ARTERIES: Normal in caliber without filling defects to suggest pulmonary emboli. MEDIASTINUM: No hilar or mediastinal lymphadenopathy. LUNGS: No focal infiltrates or masses. PLEURAL SPACE: No pleural effusion or pneumothorax. LIVER: Dominant lobulated right hepatic dome lesion measuring 5.8 x 4.1 cm, and another ovoid 3.6 x 2 .4 cm lesion in the posterior right lobe more caudally, both demonstrating nodular marginal enhancement, were seen on the prior CT, and are most suggestive of hemangiomas not fully characterize d on this single phase exam. KIDNEYS: Unremarkable. Bladder is decompressed limiting evaluation SPLEEN: Unremarkable. PANCREAS: Unremarkable. BOWEL: Unremarkable. RETROPERITONEUM: No lymphadenopathy BONES: Degenerative changes in the spine. ASCENDING THORACIC AORTA: Normal caliber without evidence of dissection or aneurysmal dilatation. DESCENDING THORACIC AORTA: Normal caliber without evidence of dissection or aneurysmal dilatation. ABDOMINAL AORTA: Normal caliber without evidence of dissection or aneurysmal dilatation. CELIAC TRUNK: Patent SMA: Patent DEBBIE: Patent RENAL ARTERIES: Bilateral single renal arteries without significant atherosclerotic disease IMPRESSION: No evidence of thoracic or abdominal aortic aneurysm or dissection. Stable presumed hemangiomata within the right liver lobe as above.
--- NOTE | 2024-06-09 17:32 | ER ---
Nurse's Notes [facility] Name: Kristen Yadav Age: 48 yrs Sex: Female : 1975 Arrival Date: 06/09/2024 Time: 14:16 Bed 20 Private MD: Diagnosis: Chest pain, unspecified Presentation: 06/09 14:30 Chief complaint: Patient states: Indigestion and mid CP for 1 month. L arm numbness ll1 off/on also. Sent in by [facility] for abnormal EKG. Coronavirus screen: Client denies travel out of the [place] in the last 14 days. At this time, the client does not indicate any symptoms associated with coronavirus-19. Ebola Screen: Patient denies travel to an Ebola-affected area in the 21 days before illness onset. Initial Sepsis Screen: Does the patient meet any 2 criteria? No. Patient's initial sepsis screen is negative. Does the patient have a suspected source of infection? No. Patient's initial sepsis screen is negative. Risk Assessment: Do you want to hurt yourself or someone else? Patient reports no desire to harm self or others. Onset of symptoms was May 10, 2024. 14:30 Method Of Arrival: Ambulatory ll1 14:30 Acuity: ELINA 3 ll1 Triage Assessment: 14:31 General: Appears uncomfortable, Behavior is calm, cooperative, appropriate for age. ll1 Pain: Denies pain. Cardiovascular: Reports chest pain. GI: Reports indigestion. Musculoskeletal: Reports numbness in left arm. 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 - Infectious Disease History:: Denies. - Social history:: Smoking status: Patient reports the use of cigarette tobacco products, smokes one-half pack cigarettes per day. - Family history:: not pertinent. - Hospitalizations: : No recent hospitalization is reported. Screenin:[address] [facility] ED Fall Risk Assessment (Adult) History of falling in the last 3 months, cm10 including since admission No falls in past 3 months (0 pts) Confusion or Disorientation No (0 pts) Intoxicated or Sedated No (0 pts) Impaired Gait No (0 pts) Mobility Assist Device Used No (0 pt) Altered Elimination No (0 pt) Score/Fall Risk Level 0 - 2 = Low Risk Oriented to surroundings, Maintained a safe environment, Hourly rounding (assess needs \T\ fall precautionary measures) done. Abuse screen: Denies threats or abuse. Denies injuries from another. Nutritional screening: No deficits noted. Tuberculosis screening: No symptoms or risk factors identified. Assessment: 14:33 General: Appears in no apparent distress. comfortable, Behavior is calm, cooperative. cm10 Pain: Complains of pain in chest and epigastric area Pain does not radiate. Pain currently is 0 out of 10 on a pain scale. Quality of pain is described as burning, Indigestion Pain began 2-3 days ago. Neuro: No deficits noted. Level of Consciousness is awake, alert, obeys commands, Oriented to person, place, time, situation, Appropriate for age. Cardiovascular: No deficits noted. Heart tones present Patient's skin is warm and dry. Rhythm is regular. Respiratory: No deficits noted. Airway is patent Respiratory effort is even, unlabored, Respiratory pattern is regular, symmetrical, Breath sounds are clear bilaterally. GI: Reports epigastric pain, indigestion. 16:04 Reassessment: Patient appears in no apparent distress at this time. No changes from cm10 previously documented assessment. Patient and/or family updated on plan of care and expected duration. Pain level reassessed. Patient is alert, oriented x 3, equal unlabored respirations, skin warm/dry/pink. Vital Signs: 14:30 BP 149 / 89; Pulse 89; Resp 18; Temp 97.2; Pulse Ox 100% ; Weight 77.11 kg; Height 5 ll1 ft. 3 in. ; Pain 0/10; 15:00 BP 117 / 72; Pulse 79; Resp 17; Pulse Ox 96% on R/A; cm10 15:30 BP 113 / 74; Pulse 77; Resp 14; Pulse Ox 96% on R/A; cm10 15:45 BP 125 / 79; Pulse 77; Resp 16; Pulse Ox 95% on R/A; cm10 16:15 BP 116 / 72; Pulse 76; Resp 17; Pulse Ox 97% on R/A; cm10 16:45 BP 119 / 81; Pulse 74; Resp 16; Pulse Ox 97% on R/A; cm10 17:30 BP 120 / 77; Pulse 72; Resp 17; Pulse Ox 98% on R/A; cm10 14:30 Body Mass Index 30.11 (77.11 kg, 160.02 cm) ll1 14:30 Pain Scale: Adult ll1 Vitals: 14:33 Cardiac Rhythm Assessment Regular Sinus rhythm. cm10 ED Course: 14:18 Patient arrived in ED. im 14:19 Portia Zavala, RN is Primary Nurse. cm10 14:19 Anderson Pantoja MD is Attending Physician. rn 14:29 Arm band placed on Patient placed in an exam room, on a stretcher. EKG completed in ll1 triage. Results shown to MD. 14:31 Triage completed. ll1 14:33 Patient has correct armband on for positive identification. Bed in low position. Call cm10 light in reach. Side rails up X2. Provided Education on: ER process and procedures.. Client placed on continuous cardiac and pulse oximetry monitoring. NIBP monitoring applied. motorcycle maker on. 14:33 Initial lab(s) drawn, by me, sent to lab. EKG done, by ED staff, reviewed by Anderson Pantoja MD. Inserted saline lock: 20 gauge in right antecubital area, using aseptic technique. Blood collected. Flushed with 10 mL NS. Patient maintains SpO2 saturation greater than 95% on room air. 14:36 Basic Metabolic Panel Sent. cm10 14:36 CBC with Diff Sent. cm10 14:36 LFT's Sent. cm10 14:36 NT PRO-BNP Sent. cm10 14:36 Troponin HS Sent. cm10 14:50 XRAY Chest (1 view) In Process Unspecified. EDMS 15:[address] via stretcher. cm10 16:10 CT Aorta for Dissection In Process Unspecified. EDMS 16:13 Patient moved back from CT. cm10 17:32 Clinton Vernon MD is Referral Physician. rn 17:53 No provider procedures requiring assistance completed. IV discontinued, intact, cm10 bleeding controlled, No redness/swelling at site. Pressure dressing applied. Administered Medications: No medications were administered Medication: 14:33 VIS not applicable for this client. cm10 Outcome: 17:32 Discharge ordered by . rn 17:53 Discharged to home ambulatory, with significant other, cm10 17:53 Condition: good 17:53 Discharge instructions given to patient, Instructed on discharge instructions, follow up and referral plans. Demonstrated understanding of instructions, follow-up care, 17:53 Patient left the ED. cm10 Signatures: Dispatcher [employer] EDAnderson English MD MD rn Lewis, Lynsay, RN RN ll1 Mikala Wilson Clarissa, RN RN cm10
--- NOTE | 2024-06-09 17:32 | EDPHYS ---
Physician Documentation [facility] Name: Kristen Yadav Age: 48 yrs Sex: Female : 1975 Arrival Date: 06/09/2024 Time: 14:16 Bed 20 Private MD: ED Physician Anderson Pantoja HPI: 06/09 14:47 This 48 yrs old Female presents to ER via Ambulatory with complaints of Chest Pain, Arm rn Pain. 14:47 The patient or guardian reports chest pain that is located primarily in the substernal rn area. 14:47 Onset: today. The pain radiates to the left arm. The chest pain is described as aching. rn Duration: The patient or guardian reports multiple episodes, that are intermittent, the episodes last approximately 3 minute(s). Modifying factors: The symptoms are alleviated by nothing. the symptoms are aggravated by exertion. Severity of pain: At its worst the pain was moderate in the emergency department the pain has improved. The patient has experienced similar episodes in the past. Patient reports intermittent episodes of chest pain, substernal, radiates to the left arm. States has had abnormal stress test in the past but followed up with echo which showed mitral valve prolapse, mild, no heart cath was recommended at that time. Has been having intermittent episodes of chest pain that radiate to the left arm, worse with exertion. Seen at urgent care or clinic today and sent in for evaluation. No current chest pain or arm pain. No dyspnea. Patient also reports elevated cholesterol and just found out her triglycerides were greater than 700, not started on any cholesterol medication.. 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 - Infectious Disease History:: Denies. - Social history:: Smoking status: Patient reports the use of cigarette tobacco products, smokes one-half pack cigarettes per day. - Family history:: not pertinent. - Hospitalizations: : No recent hospitalization is reported. ROS: 14:47 Constitutional: Negative for fever, chills, and weight loss, Neck: Negative for injury, rn pain, and swelling, Cardiovascular: Positive for chest pain Respiratory: Negative for shortness of breath, cough, wheezing, and pleuritic chest pain, Abdomen/GI: Negative for abdominal pain, nausea, vomiting, diarrhea, and constipation, Back: Negative for injury and pain, MS/Extremity: Negative for injury and deformity, Skin: Negative for injury, rash, and discoloration, Neuro: Negative for headache, weakness, numbness, tingling, and seizure, Exam: 14:50 Constitutional: This is a well developed, well nourished patient who is awake, alert, rn and in no acute distress. Head/Face: Normocephalic, atraumatic. Cardiovascular: Regular rate and rhythm. No pulse deficits. Respiratory: No increased work of breathing, no retractions or nasal flaring. Abdomen/GI: Soft, non-tender MS/ Extremity: Pulses equal, no cyanosis. Neuro: Awake and alert, GCS 15 14:51 ECG was reviewed by the Attending Physician. rn Vital Signs: 14:30 BP 149 / 89; Pulse 89; Resp 18; Temp 97.2; Pulse Ox 100% ; Weight 77.11 kg; Height 5 ll1 ft. 3 in. ; Pain 0/10; 15:00 BP 117 / 72; Pulse 79; Resp 17; Pulse Ox 96% on R/A; cm10 15:30 BP 113 / 74; Pulse 77; Resp 14; Pulse Ox 96% on R/A; cm10 15:45 BP 125 / 79; Pulse 77; Resp 16; Pulse Ox 95% on R/A; cm10 16:15 BP 116 / 72; Pulse 76; Resp 17; Pulse Ox 97% on R/A; cm10 16:45 BP 119 / 81; Pulse 74; Resp 16; Pulse Ox 97% on R/A; cm10 17:30 BP 120 / 77; Pulse 72; Resp 17; Pulse Ox 98% on R/A; cm10 14:30 Body Mass Index 30.11 (77.11 kg, 160.02 cm) ll1 14:30 Pain Scale: Adult ll1 MDM: 14:19 Patient medically screened. rn 17:28 Differential diagnosis: acute myocardial infarction, acute pericarditis, anxiety, rn coronary artery disease costochondritis, gastroesophageal reflux disease (GERD), pericarditis, pleurisy, pneumothorax. Data reviewed: vital signs, nurses notes, lab test result(s), EKG, radiologic studies, CT scan, plain films, and as a result, I will discharge patient. Consideration of Admission/Observation Escalation of care including admission/observation considered. Counseling: I had a detailed discussion with the patient and/or guardian regarding the historical points, exam findings, and any diagnostic results supporting the discharge/admit diagnosis, lab results, radiology results, the need for outpatient follow up, to return to the emergency department if symptoms worsen or persist or if there are any questions or concerns that arise at home. ED course: Patient is still chest pain-free. Negative workup here including CT aorta. Troponin negative. ECG without ischemia. 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 Return precautions given and understood.. 06/09 14:33 Order name: Basic Metabolic Panel; Complete Time: 15:23 rn 06/09 14:33 Order name: CBC with Diff; Complete Time: 15:16 rn 06/09 14:33 Order name: LFT's; Complete Time: 15:23 rn 06/09 14:33 Order name: NT PRO-BNP; Complete Time: 15:23 rn 06/09 14:33 Order name: Troponin HS; Complete Time: 15:23 rn 06/09 14:33 Order name: XRAY Chest (1 view); Complete Time: 15:16 rn 06/09 14:49 Order name: CT Aorta for Dissection; Complete Time: 17:19 rn 06/09 14:33 Order name: EKG; Complete Time: 14:33 rn 06/09 14:33 Order name: Cardiac monitoring; Complete Time: 14:35 rn 06/09 14:33 Order name: EKG - Nurse/Tech; Complete Time: 14:35 rn 06/09 14:33 Order name: IV Saline Lock; Complete Time: 14:36 rn 06/09 14:33 Order name: Labs collected and sent; Complete Time: 14:36 rn 06/09 14:33 Order name: O2 Per Protocol; Complete Time: 14:36 rn 06/09 14:33 Order name: O2 Sat Monitoring; Complete Time: 14:36 rn EC:51 Rate is 78 beats/min. Rhythm is regular. QRS [place] is Normal. [place] interval is normal. QRS rn interval is normal. QT interval is normal. No Q waves. T waves are Normal. No ST changes noted. Clinical impression: Normal ECG. Interpreted by me. Reviewed by me. Administered Medications: No medications were administered Disposition Summary: 06/09/24 17:32 Discharge Ordered Notes: Location: Home rn Problem: an ongoing problem rn Symptoms: have improved rn Condition: Stable rn Diagnosis - Chest pain, unspecified rn Followup: rn - With: Clinton Vernon MD - When: As needed - Reason: Recheck today's complaints, Re-evaluation by your physician Discharge Instructions: - Discharge Summary Sheet rn - Nonspecific Chest Pain, Adult rn - Pain Without a Known Cause rn Forms: - Medication Reconciliation Form rn - Antibiotic pattern and chain maker - Prescription Opioid Use rn - Patient Portal Instructions rn - Leadership Thank You Letter rn Signatures: Dispatcher [employer] EDAnderson English MD MD rn Lewis, Lynsay, RN RN ll1 Corrections: (The following items were deleted from the chart) 14:33 14:33 BASIC METABOLIC PANEL+C.LAB.BRZ ordered. EDMS EDMS 14:33 14:33 CBC+H.LAB.BRZ ordered. EDMS EDMS 14:33 14:33 HEPATIC FUNCTION+C.LAB.BRZ ordered. EDMS EDMS 14:33 14:33 PROBNP+C.LAB.BRZ ordered. EDMS EDMS 14:33 14:33 Troponin High Sensitivity+C.LAB.BRZ ordered. EDMS EDMS 14:49 14:47 Constitutional: Negative for fever, chills, and weight loss, Cardiovascular: rn Positive for chest pain Respiratory: Negative for shortness of breath, cough, wheezing, and pleuritic chest pain, Abdomen/GI: Negative for abdominal pain, nausea, vomiting, diarrhea, and constipation, Back: Negative for injury and pain, MS/Extremity: Negative for injury and deformity, Skin: Negative for injury, rash, and discoloration, Neuro: Negative for headache, weakness, numbness, tingling, and seizure, rn
[2024-06-09 19:03] VITALS: TEMP 97.4
[2024-06-09 19:05] VITALS: BP 123/108; O2SAT 98
--- NOTE | 2024-06-10 16:54 | EKG ---
Test Date: 2024-06-09 Test Time: 14:27:26 Drying Room Attendant: SARA MEASUREMENT RESULTS: Intervals: Rate: 78 NM: 144 QRSD: 92 QT: 396 QTc: 451 [place]: P: 56 NM: 144 QRS: 43 T: 76 INTERPRETIVE STATEMENTS: Normal sinus rhythm Normal ECG Compared to ECG 03/14/2024 15:03:10 Sinus arrhythmia no longer present Myocardial infarct finding no longer present Electronically Signed On 06-10-24 16:50:29 CDT by Clinton Vernon
== END 2024-06-09 17:53 | disposition home or self-care (01) ==
LOC: ER 14:16
DX: R07.9 Chest pain, unspecified (principal); I10 Essential (primary) hypertension; F17.210 Nicotine dependence, cigarettes, uncomplicated
CPT/HCPCS: 93005; 85025; 80048; 36415; 80076; 84484; 83880; 71275; 74175; 71045; Q9967

== ENCOUNTER 2024-09-24 07:39 | Emergency (ER) | payer OTHER ==
--- OUTSIDE RECORDS SUMMARY | 2024-09-24 07:43 | XMS REPORT | Continuity of Care Document ---
Author Name Unknown Address [address] [facility] [place] [address] [facility] Address [address] [facility] [address] [place] [address] Care Team Providers Care Report Analyst Name Role Phone PCP, PATIENT DOES NOT HAVE A Primary Care Physic Festus Tipton Attending Clinician KELI Monique Attending Clinician KELI Harley Attending Clinician Rosey melgar Doctor Unassigned, [place] Attending Clinician LINO Murphy Attending Clinician Unavailable ARVIND YAP Attending Clinician Unavailable KELI ROONEY Admitting Clinician Rosey melgar Payers Payer Name Policy Type Policy Number Effective Date Expirati on Date Source [facility] 53 [id number] 2024 00:00:00 2025 00:00:00 [facility] 90 Degree Benefits/TSHBP 53 [id number] 2023 00:00:00 [facility] AETNA-90 DEGREE BENEFITS 2 [id number] 2022 00:00:00 [facility] 6 [id number] 2020 00:00:00 Common [facility] Problems Condition Name Condition Details Condition Category Status Onset Date Resolution Date Last Treatment Date Treating Clinician Comments Source 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 [facility] Generalize d anxiety disorder Generalize d anxiety disorder Disease Active 2013-09 00:00: 00 [facility] Heavy menses Heavy menses Disease Active 2013-09 00:00: 00 [facility] Need for Tdap vaccinatio n Need for Tdap vaccinatio n Disease Active 2013-09 00:00: 00 [facility] [id number] Liver lesion, right lobe Problem [facility] [id number] Depression , major, single episode, severe Problem [facility] [id number] Halitosis Problem Commo n [facility] [id number] Body mass index [BMI] 30.0-30.9, adult Problem Common [facility] [id number] Other obesity due to excess calories Problem Common [facility] [id number] Obstructiv e sleep apnea (adult) (pediatric ) Problem Common [facility] [id number] Benign essential HTN Problem Common [facility] [id number] Dependence on other enabling machines and devices Problem Common [facility] [id number] Mixed hyperlipid emia Problem [facility] [id number] Depression with anxiety Problem [facility] [id number] Primary insomnia Problem [facility] Allergies, Adverse Reactions, Alerts Allergy Name Allergy Type Status Severity Reaction(s) Onset Date Inactive Date Treating Clinician Comments Source Sulfa (Sulfona mide Antibiot ics) Propensi ty to adverse reaction s Active Swelling 2013-09 00:00: 00 [facility] SULFA (SULFONA MIDE ANTIBIOT ICS) Drug Class Active Swelling 2013-09 00:00: 00 [facility] [address] Drug allergy Active Fever, Swelling [facility] Social History Social Habit Start Date Stop Date Quantity Comments Source [facility] of Tobacco Use Current Smoker [facility] Alcoholic beverage intake 2023-08-01 00:00:00 2023-08-01 00:00:00 Current non-drinker of alcohol (finding) [facility] Alcohol intake 2023-08-01 00:00:00 2023-08-01 00:00:00 Current non-drinker of alcohol (finding) [facility] History of Social function 2023-08-01 00:00:00 2023-08-01 00:00:00 [facility] Cigarettes smoked current (pack per day) - Reported 2014-07-25 00:00:00 2014-07-25 00:00:00 [facility] Cigarette pack-years 2014-07-25 00:00:00 2014-07-25 00:00:00 [facility] Tobacco use and exposure 2014-07-25 00:00:00 2014-07-25 00:00:00 Smokeless tobacco non-user [facility] Sex assigned at 1975 00:00:00 1975 00:00:00 [facility] Smoking Status Start Date Stop Date Source Smokes tobacco daily 2014-07-25 00:00:00 [facility] Medications Ordered Medication Name Filled Medication Name Start Date Stop Date Current Medication? Ordering Clinician Indication Dosage Frequency Signature (SIG) Comments Components Source metFORMIN HCl ER 500 MG metFORMIN HCl ER 500 MG 2023-09 00:00: 00 No BID metFORMIN HCl ER 500 MG estradioL 0.01 % (0.1 mg/gram) vaginal cream 02-24 00:00: 00 Yes [id number] 2g Insert 2 g into vagina 2 (two) times per week. [facility] buPROPion 75 mg tablet 02-21 13:52: 22 Yes 75mg Take 1 tablet by mouth in the morning. [facility] lisinopriL 20 mg tablet 02-21 13:52: 22 Yes 20mg Take 1 tablet by mouth in the morning. [facility] Nicotine 21 MG/24HR Nicotine 21 MG/24HR No 1{patch _to_ski n} QD Nicotine 21 MG/24HR Lisinopril- hydroCHLORO thiazide 20-25 MG Lisinopril- hydroCHLORO thiazide 20-25 MG No 1{table t} QD Lisinopril -hydroCHLO ROthiazide 20-25 MG Vital Signs Vital Name Observation Time Observation Value Comments S ource height 2024-07-12 08:00:00 63 [in_i] Commo n [facility] weight 2024-07-12 08:00:00 173 [lb_av] Comm on [facility] bmi 2024-07-12 08:00:00 30.64 kg/m2 Comm on [facility] blood pressure systolic 2024-07-12 08:00:00 138 mm[Hg] Common [facility] blood pressure diastolic 2024-07-12 08:00:00 87 mm[Hg] Common [facility] height 2024-06-07 16:15:00 63 [in_i] Commo n [facility] weight 2024-06-07 16:15:00 176.8 [lb_av] Co mmon [facility] temperature 2024-06-07 16:15:00 98 [degF] Comm on [facility] bmi 2024-06-07 16:15:00 31.32 kg/m2 Comm on [facility] oximetry 2024-06-07 16:15:00 97 % Commo n [facility] blood pressure systolic 2024-06-07 16:15:00 152 mm[Hg] Common [facility] blood pressure diastolic 2024-06-07 16:15:00 84 mm[Hg] Common [facility] height 2024-06-07 16:15:00 63 [in_i] Commo n [facility] weight 2024-06-07 16:15:00 176.8 [lb_av] Co mmon [facility] temperature 2024-06-07 16:15:00 98 [degF] Comm on [facility] bmi 2024-06-07 16:15:00 31.32 kg/m2 Comm on [facility] oximetry 2024-06-07 16:15:00 97 % Commo n [facility] blood pressure systolic 2024-06-07 16:15:00 152 mm[Hg] Common [facility] blood pressure diastolic 2024-06-07 16:15:00 84 mm[Hg] Common [facility] height 2024-03-16 08:00:00 63 [in_i] Commo n [facility] weight 2024-03-16 08:00:00 174.4 [lb_av] Co mmon [facility] temperature 2024-03-16 08:00:00 97.9 [degF] Com mon [facility] bmi 2024-03-16 08:00:00 30.89 kg/m2 Comm on [facility] oximetry 2024-03-16 08:00:00 99 % Commo n [facility] respiratory rate 2024-03-16 08:00:00 17 /min [facility] blood pressure systolic 2024-03-16 08:00:00 134 mm[Hg] Common [facility] blood pressure diastolic 2024-03-16 08:00:00 80 mm[Hg] Common [facility] height 2023-06-02 16:20:00 63 [in_i] Commo n [facility] weight 2023-06-02 16:20:00 163.4 [lb_av] Co on [facility] temperature 2023-06-02 16:20:00 97.9 [degF] Com mon [facility] bmi 2023-06-02 16:20:00 28.94 kg/m2 Comm on [facility] oximetry 2023-06-02 16:20:00 98 % Commo n [facility] respiratory rate 2023-06-02 16:20:00 18 /min [facility] blood pressure systolic 2023-06-02 16:20:00 130 mm[Hg] [facility] blood pressure diastolic 2023-06-02 16:20:00 75 mm[Hg] [facility] Systolic blood pressure 2023-02-21 18:57:00 138 mm[Hg] [facility] Diastolic blood pressure 2023-02-21 18:57:00 77 mm[Hg] [facility] Body weight 2023-02-21 18:56:00 73.936 kg [facility] BMI 2023-02-21 18:56:00 28.87 kg/m2 [facility] Oxygen saturation in Arterial blood by Pulse oximetry 2023-02-21 18:56:00 98 /min [facility] Heart rate 2023-02-21 18:56:00 76 /min [facility] Body temperature 2023-02-21 18:56:00 37.17 [facility] Respiratory rate 2023-02-21 18:56:00 18 /min [facility] Body height 2023-02-21 18:56:00 160 cm [facility] height 2023-02-19 15:20:00 63 [in_i] Commo n [facility] weight 2023-02-19 15:20:00 161.2 [lb_av] Co on [facility] temperature 2023-02-19 15:20:00 98.3 [degF] Com mon [facility] bmi 2023-02-19 15:20:00 28.55 kg/m2 Comm on [facility] oximetry 2023-02-19 15:20:00 97 % Commo n [facility] respiratory rate 2023-02-19 15:20:00 18 /min Common [facility] blood pressure systolic 2023-02-19 15:20:00 123 mm[Hg] Common [facility] blood pressure diastolic 2023-02-19 15:20:00 73 mm[Hg] Common [facility] height 2022-08-20 11:40:00 63 [in_i] Commo n [facility] weight 2022-08-20 11:40:00 155 [lb_av] Comm on [facility] temperature 2022-08-20 11:40:00 98 [degF] Comm on [facility] bmi 2022-08-20 11:40:00 27.45 kg/m2 Comm on [facility] blood pressure systolic 2022-08-20 11:40:00 128 mm[Hg] Common [facility] blood pressure diastolic 2022-08-20 11:40:00 73 mm[Hg] Common [facility] height 2022-07-24 15:30:00 63 [in_i] Commo n [facility] weight 2022-07-24 15:30:00 156.9 [lb_av] Co mmon [facility] temperature 2022-07-24 15:30:00 100.9 [degF] Co [facility] bmi 2022-07-24 15:30:00 27.79 kg/m2 Comm on [facility] height 2022-04-04 14:40:00 63 [in_i] Commo n [facility] weight 2022-04-04 14:40:00 154.9 [lb_av] Co mmon [facility] temperature 2022-04-04 14:40:00 98.1 [degF] Com mon [facility] bmi 2022-04-04 14:40:00 27.44 kg/m2 Comm on [facility] oximetry 2022-04-04 14:40:00 98 % Commo n [facility] respiratory rate 2022-04-04 14:40:00 18 /min Common [facility] blood pressure systolic 2022-04-04 14:40:00 132 mm[Hg] Common [facility] blood pressure diastolic 2022-04-04 14:40:00 70 mm[Hg] Common [facility] height 2022-01-17 07:40:00 63 [in_i] Commo n [facility] weight 2022-01-17 07:40:00 153 [lb_av] Comm on [facility] temperature 2022-01-17 07:40:00 98.6 [degF] Com mon [facility] bmi 2022-01-17 07:40:00 27.1 kg/m2 Commo n [facility] blood pressure systolic 2022-01-17 07:40:00 106 mm[Hg] Common [facility] blood pressure diastolic 2022-01-17 07:40:00 77 mm[Hg] Common [facility] height 2021-10-02 11:40:00 63 [in_i] Commo n [facility] weight 2021-10-02 11:40:00 161 [lb_av] Comm on [facility] temperature 2021-10-02 11:40:00 101.2 [degF] Co mmon [facility] bmi 2021-10-02 11:40:00 28.52 kg/m2 Comm on [facility] blood pressure systolic 2021-10-02 11:40:00 135 mm[Hg] Common [facility] blood pressure diastolic 2021-10-02 11:40:00 78 mm[Hg] Common [facility] height 2021-07-11 08:40:00 63 [in_i] Commo n [facility] weight 2021-07-11 08:40:00 164 [lb_av] Comm on [facility] temperature 2021-07-11 08:40:00 98 [degF] Comm on [facility] bmi 2021-07-11 08:40:00 29.05 kg/m2 Comm on [facility] blood pressure systolic 2021-07-11 08:40:00 132 mm[Hg] Common [facility] blood pressure diastolic 2021-07-11 08:40:00 70 mm[Hg] [facility] height 2021-06-13 09:00:00 63 [in_i] Commo n [facility] weight 2021-06-13 09:00:00 163.1 [lb_av] Co mmon [facility] temperature 2021-06-13 09:00:00 97.6 [degF] Com mon [facility] bmi 2021-06-13 09:00:00 28.89 kg/m2 Comm on [facility] oximetry 2021-06-13 09:00:00 98 % Commo n [facility] respiratory rate 2021-06-13 09:00:00 16 /min [facility] blood pressure systolic 2021-06-13 09:00:00 138 mm[Hg] [facility] blood pressure diastolic 2021-06-13 09:00:00 75 mm[Hg] [facility] Procedures Procedure Date / Time Performed Performing Clinician Source BI ULTRASOUND BREAST LIMITED BILATERAL 2024-03-30 18:56:00 Nevin [facility] BI ULTRASOUND BREAST LIMITED BILATERAL 2023-08-20 19:12:[address] [facility] BI SCREENING TOMOSYNTHESIS BILATERAL 2023-08-01 19:57:31 Keli Rooney [facility] Encounters Start Date/Time End Date/Time Encounter Type Admission Type Attending [facility] Facility Care Department Encounter ID Source 2024-06-28 09:14:00 Outpatient Rubio, Festus STLMLC ST[facility] [id number] [facility] 2024-06-01 14:55:00 Outpatient Rubio, Festus STLMLC ST[facility] [id number] [facility] 2024-05-31 11:03:00 Outpatient Rubio, Festus STLMLC ST[facility] [id number] [facility] 2024-03-18 09:12:00 Outpatient Rubio, Festus STLMLC ST[facility] [id number] [facility] 2024-03-15 15:29:00 Outpatient Rubio, Festus STLMLC ST[facility] [id number] [facility] 2024-02-19 14:24:00 Outpatient Rubio, Festus STLMLC ST[facility] [id number] [facility] 2023-11-07 13:57:00 Outpatient Rubio, Festus STLMLC ST[facility] [id number] [facility] 2023-02-17 10:01:01 Outpatient Rubio, Festus ST[facility]MLC ST[facility] [id number] [facility] 2022-08-16 10:08:02 Outpatient Rubio, Festus [facility]C ST[facility] [id number] [facility] 2022-07-18 10:51:01 Outpatient Rubio, Festus ST[facility]MLC ST[facility] [id number] [facility] 2021-10-04 13:50:01 Outpatient Rubio, Festus ST[facility]MLC ST[facility] [id number] [facility] 2021-09-26 13:39:47 Outpatient Rubio, Festus ST[facility]ML[facility] ST[facility] [id number] [facility] 2021-09-26 13:33:21 Outpatient Rubio, Festus ST[facility]MLC ST[facility] [id number] [facility] 2021-09-26 13:14:23 Outpatient Rubio, Festus STLMLC ST[facility] [id number] [facility] 2024-08-06 00:00:00 2024-08-06 00:00:00 (TEL) STLMLC STLMLC [id number] [facility] 2024-07-12 00:00:00 2024-07-12 00:00:00 OFFICE VISIT ESTAB PT LEVEL 4 [facility] ST[facility] [id number] [facility] 2024-07-12 00:00:00 2024-07-12 00:00:00 (TEL) STLMLC STL[facility]C [id number] [facility] 2024-06-15 00:00:00 2024-06-15 00:00:00 (TEL) STLMLC STL[facility]C [id number] [facility] 2024-06-07 00:00:00 2024-06-07 00:00:00 (WELLNESS) Wellness Visit STLMLC STL[facility]C [id number] [facility] 2024-06-03 00:00:00 2024-06-03 00:00:00 (TEL) STLMLC STLMLC [id number] [facility] 2024-06-03 00:00:00 2024-06-03 00:00:00 (TEL) STLMLC ST[facility] [id number] [facility] 2024-05-19 00:00:00 2024-05-19 00:00:00 (TEL) STLMLC ST[facility]C [id number] [facility] 2024-04-22 00:00:00 2024-04-22 00:00:00 (TEL) STLMLC ST[facility]MLC [id number] [facility] 2024-03-31 00:00:00 2024-03-31 10:41:25 Case Management Saludi s Keli [facility] 1.2.840.114 350.1.13.10 4.2.7.2.686 [id number] [facility] 2024-03-30 13:21:03 2024-03-30 23:59:00 Outpatient R GALVEZ-GILL S, KELI GALVEZ-GILL S, KELI [facility] [id number] [facility] 2024-03-30 13:21:03 2024-03-30 23:59:00 Hospital Encounter Leonor-Gill sPratimaKeli [facility] 1.2.840.114 350.1.13.10 4.2.7.2.686 [id number] [facility] 2024-03-23 00:00:00 2024-03-23 00:00:00 (TEL) STLMLC STLMLC [id number] [facility] 2024-03-21 00:00:00 2024-03-21 00:00:00 (TEL) STLMLC STLMLC [id number] [facility] 2024-03-16 00:00:00 2024-03-16 00:00:00 OFFICE VISIT ESTAB PT LEVEL 4 [facility]LMLC ST[facility]C [id number] [facility] 2024-03-15 00:00:00 2024-03-15 00:00:00 (TEL) STLMLC STLMLC [id number] [facility] 2024-03-02 00:00:00 2024-03-02 00:00:00 Outpatient R GALVEZ-GILL S, KELI GALVEZ-GILL S, KELI [facility] [id number] [facility] 2024-03-01 08:30:00 2024-03-01 08:30:00 Outpatient R GALVEZ-GILL S, KELI GALVEZ-GILL S, KELI [facility] [id number] [facility] 2024-02-17 00:00:00 2024-02-17 00:00:00 Outpatient R GONZALES S, KELI LEONOR-GILL SPRATIMAKELI [facility] [id number] [facility] 2023-11-25 00:00:00 2023-11-25 00:00:00 (TEL) STLMLC STLMLC [id number] [facility] 2023-11-12 00:00:00 2023-11-12 00:00:00 (TEL) STLMLC STLMLC [id number] [facility] 2023-10-27 00:00:00 2023-10-27 00:00:00 (TEL) STLMLC STLMLC [id number] [facility] 2023-08-21 00:00:00 2023-08-21 00:00:00 Case Management Keli Mcwilliams [facility] 1.2.840.114 350.1.13.10 4.2.7.2.686 [id number] [facility] 2023-08-20 12:33:21 2023-08-20 23:59:00 [facility] 1.2.840.114 350.1.13.10 4.2.7.2.686 [id number] [facility] 2023-08-20 12:33:15 2023-08-20 23:59:00 Hospital Encounter Gonzales sPratimaKeli [facility] 1.2.840.114 350.1.13.10 4.2.7.2.686 [id number] [facility] 2023-08-20 00:00:00 2023-08-20 23:59:00 Outpatient R LEONOR-GILL S, KELI GALVEZ-GILL S, KELI [facility] [id number] [facility] 2023-08-20 00:00:00 2023-08-20 00:00:00 Case Management Galvez-Gill s, Keli [facility] 1.2.840.114 350.1.13.10 4.2.7.2.686 [id number] [facility] 2023-08-11 00:00:00 2023-08-11 00:00:00 Case Management Galvez-Gill s, Keli [facility] 1.2.840.114 350.1.13.10 4.2.7.2.686 [id number] [facility] 2023-08-06 00:00:00 2023-08-06 00:00:00 Patient Secure Msg Doctor Unassigned, [place] [facility] 1.2.840.114 350.1.13.10 4.2.7.2.686 [id number] [facility] 2023-08-06 00:00:00 2023-08-06 00:00:00 Telephone Galvez-Gill s, Keli [facility] 1.2.840.114 350.1.13.10 4.2.7.2.686 [id number] [facility] 2023-08-04 00:00:00 2023-08-04 00:00:00 Patient Secure Msg Doctor Unassigned, [place] [facility] 1.2.840.114 350.1.13.10 4.2.7.2.686 [id number] [facility] 2023-08-01 13:32:39 2023-08-01 23:59:00 Outpatient R GALVEZ-GILL S, KELI GALVEZ-GILL S, KELI [facility] [id number] [facility] 2023-08-01 13:32:39 2023-08-01 23:59:00 Hospital Encounter Keli Mcwilliams [facility] 1.2.840.114 350.1.13.10 4.2.7.2.686 [id number] [facility] 2023-06-13 14:45:00 2023-06-13 14:45:00 Outpatient R GALVEZ-GILL S, KELI GALVEZ-GILL S, KELI [facility] [id number] [facility] 2023-06-12 00:00:00 2023-06-12 00:00:00 Telephone Keli Mcwilliams [facility] 1.2.840.114 350.1.13.10 4.2.7.2.686 [id number] [facility] 2023-06-02 00:00:00 2023-06-02 00:00:00 (TEL) STLC STLMLC [id number] [facility] 2023-06-02 00:00:00 2023-06-02 00:00:00 OFFICE VISIT ESTAB PT LEVEL 3 STLMLC STLMLC [id number] [facility] 2023-04-15 00:00:00 2023-04-15 00:00:00 (TEL) STLMLC STLMLC [id number] [facility] 2023-04-03 00:00:00 2023-04-03 00:00:00 Outpatient R GALVEZ-GILL S, KELI GALVEZ-GILL S, KELI [facility] [id number] [facility] 2023-03-31 00:00:00 2023-03-31 00:00:00 (TEL) STLC STLC [id number] [facility] 2023-02-21 14:00:00 2023-02-21 14:20:17 Outpatient R GONZALES [place], KELI GONZALES S, KELI [facility] [id number] [facility] 2023-02-21 14:00:00 2023-02-21 14:20:17 Office Visit Keli Mcwilliams [facility] KARISSA MILLER [facility] 1.2.840.114 350.1.13.10 4.2.7.2.686 [id number] [facility] 2023-02-19 00:00:00 2023-02-19 00:00:00 (WELLNESS) Wellness Visit STLMLC STLMLC [id number] [facility] 2023-01-30 08:00:00 2023-01-30 08:00:00 [place]patient [place] [id number] Christine arvind 2023-01-09 00:00:00 2023-01-09 00:00:00 Outpatient ARVIND YAP [id number] [facility] 2022-08-20 00:00:00 2022-08-20 00:00:00 OFFICE VISIT ESTAB PT LEVEL 4 STLMLC STLMLC [id number] [facility] 2022-07-24 00:00:00 2022-07-24 00:00:00 (TEL) STLMLC STLMLC [id number] [facility] 2022-07-24 00:00:00 2022-07-24 00:00:00 OFFICE VISIT EST PT LEVEL 3 STLMLC STLMLC [id number] [facility] 2022-04-25 00:00:00 2022-04-25 00:00:00 (TEL) STLMLC STLMLC [id number] [facility] 2022-04-12 00:00:00 2022-04-12 00:00:00 (TEL) STLMLC STLMLC [id number] [facility] 2022-04-04 00:00:00 2022-04-04 00:00:00 (WELLNESS) Wellness Visit STLMLC STLMLC [id number] [facility] 2022-04-03 00:00:00 2022-04-03 00:00:00 (TEL) STLMLC STLMLC [id number] [facility] 2022-01-29 00:00:00 2022-01-29 00:00:00 (TEL) STLMLC STLMLC [id number] [facility] 2022-01-17 00:00:00 2022-01-17 00:00:00 OFFICE VISIT EST PT LEVEL 3 STLMLC STLMLC [id number] [facility] 2022-01-10 00:00:00 2022-01-10 00:00:00 (TEL) STLMLC STLMLC [id number] [facility] 2021-10-02 00:00:00 2021-10-02 00:00:00 OFFICE VISIT EST PT LEVEL 3 STLMLC STLMLC [id number] [facility] 2021-08-02 00:00:00 2021-08-02 00:00:00 (TEL) STLMLC STLMLC [id number] [facility] 2021-07-30 00:00:00 2021-07-30 00:00:00 (TEL) STLMLC STLMLC [id number] [facility] 2021-07-18 00:00:00 2021-07-18 00:00:00 (TEL) STLMLC STLMLC [id number] [facility] 2021-07-11 00:00:00 2021-07-11 00:00:00 OFFICE VISIT ESTAB PT LEVEL 4 STLMLC STLMLC [id number] [facility] 2021-07-09 00:00:00 2021-07-09 00:00:00 (TEL) STLMLC STLMLC [id number] [facility] 2021-06-13 00:00:00 2021-06-13 00:00:00 OFFICE VISIT ESTAB PT LEVEL 4 STLMLC STLMLC [id number] [facility] 2021-05-11 00:00:00 2021-05-11 00:00:00 (TEL) STLMLC STLMLC [id number] [facility] 2021-04-18 00:00:00 2021-04-18 00:00:00 Outpatient STLMLC STLMLC [id number] [facility] 2021-04-17 00:00:00 2021-04-17 00:00:00 Outpatient STLMLC STLMLC [id number] [facility] 2021-04-03 00:00:00 2021-04-03 00:00:00 Outpatient STLMLC STLMLC [id number] [facility] 2021-03-08 00:00:00 2021-03-08 00:00:00 Outpatient STLMLC STLMLC [id number] [facility] 2021-02-12 00:00:00 2021-02-12 00:00:00 Outpatient STLMLC STLMLC [id number] [facility] Results Test Description Test Time Test Comments Results Result Co mments Source REFLEXED [id number] 00:00:00* Test Item Value Reference Range Interpretation Comme nts NUCLEATED RBCS (test code = 71480-2) 0.0 /100 WBC'S See_Comment [Automated message] The system which generated this result transmitted reference range: 0.0 /100 WBC'S. The reference range was not used to interpret this result as normal/abnormal. ABSOLUTE EOSINOPHILS (test code = 56847-8) 0.27 K/UL See_Comment [Automated message] The system which generated this result transmitted reference range: 0.00-0.50 K/UL. The reference range was not used to interpret this result as normal/abnormal. ABSOLUTE LYMPHOCYTES (test code = 97459-8) 2.19 K/UL See_Comment [Automated message] The system which generated this result transmitted reference range: 1.00-4.00 K/UL. The reference range was not used to interpret this result as normal/abnormal. ABSOLUTE MONOCYTES (test code = 79987-6) 0.40 K/UL See_Comment [Automated message] The system which generated this result transmitted reference range: 0.20-1.00 K/UL. The reference range was not used to interpret this result as normal/abnormal. ABSOLUTE NEUTROPHILS (test code = 92488-8) 3.11 K/UL See_Comment [Automated message] The system which generated this result transmitted reference range: 1.50-7.50 K/UL. The reference range was not used to interpret this result as normal/abnormal. BASOPHILS (test code = 45335-1) 0.3 % EOSINOPHILS (test code = 74846-0) 4.5 % HEMATOCRIT (test code = 97874-7) 41.2 % See_Comment [Automated message] The system which generated this result transmitted reference range: 34.0-45.0 %. The reference range was not used to interpret this result as normal/abnormal. HEMOGLOBIN (test code = 718-7) 13.8 G/DL See_Comment [Automated message] The system which generated this result transmitted reference range: 11.5-15.5 G/DL. The reference range was not used to interpret this result as normal/abnormal. LYMPHOCYTES (test code = 47109-4) 36.5 % MCH (test code = 43356-8) 32.2 PG See_Comment [Automated message] The system which generated this result transmitted reference range: 25.0-33.0 PG. The reference range was not used to interpret this result as normal/abnormal. MCHC (test code = 73251-4) 33.5 G/DL See_Comment [Automated message] The system which generated this result transmitted reference range: 31.0-36.0 G/DL. The reference range was not used to interpret this result as normal/abnormal. MCV (test code = 52808-5) 96.0 fL See_Comment [Automated message] The system which generated this result transmitted reference range: 80.0-99.0 fL. The reference range was not used to interpret this result as normal/abnormal. MONOCYTES (test code = 22577-6) 6.7 % NEUTROPHILS (test code = 26407-9) 51.8 % PLATELET COUNT (test code = 98952-1) 195 K/UL See_Comment [Automated message] The system which generated this result transmitted reference range: 130-400 K/UL. The reference range was not used to interpret this result as normal/abnormal. RBC (test code = 23982-0) 4.29 M/UL See_Comment [Automated message] The system which generated this result transmitted reference range: 3.80-5.40 M/UL. The reference range was not used to interpret this result as normal/abnormal. RDW (test code = 95434-0) 12.2 % See_Comment [Automated message] The system which generated this result transmitted reference range: 11.5-15.0 %. The reference range was not used to interpret this result as normal/abnormal. WBC (test code = 06380-1) 6.0 K/UL See_Comment [Automated message] The system which generated this result transmitted reference range: 3.5-11.0 K/UL. The reference range was not used to interpret this result as normal/abnormal. HEMOGLOBIN A1c (test code = 4548-4) 6.0 % See_Comment H [Automated message] The system which generated this result transmitted reference range: 4.2-5.6 %. The reference range was not used to interpret this result as normal/abnormal. TSH REFLEX TO FREE T4 (test code = 34668-3) 1.900 UIU/ML See_Comment [Automated message] The system which generated this result transmitted reference range: 0.400-4.100 UIU/ML. The reference range was not used to interpret this result as normal/abnormal. APPEARANCE (test code = 5767-9) CLEAR CLEAR BACTERIA (test code = 14235-1) 3+ NONE SEEN A BILIRUBIN (test code = 5770-3) NEGATIVE NEGATIVE CASTS, HYALINE (test code = 42752-6) NONE SEEN NONE-TRACE COLOR (test code = 5778-6) YELLOW YELLOW-STRAW EPITHELIAL CELLS (test code = 38384-6) 0-5 /HPF See_Comment [Automated message] The system which generated this result transmitted reference range: 0-10 /HPF. The reference range was not used to interpret this result as normal/abnormal. GLUCOSE (test code = 5792-7) NEGATIVE NEGATIVE KETONES (test code = 5797-6) NEGATIVE NEGATIVE LEUKOCYTE ESTERASE (test code = 5799-2) NEGATIVE NEGATIVE NITRITE (test code = 5802-4) POSITIVE NEGATIVE A OCCULT BLOOD (test code = 59664-1) NEGATIVE NEGATIVE pH (test code = 5803-2) 5.5 5.0-9.0 PROTEIN (test code = 37052-4) NEGATIVE NEGATIVE RED BLOOD CELLS (test code = 00386-1) 0-2 /HPF See_Comment [Automated message] The system which generated this result transmitted reference range: 0-2 /HPF. The reference range was not used to interpret this result as normal/abnormal. SPECIFIC GRAVITY (test code = 5811-5) 1.021 1.005-1.035 UROBILINOGEN (test code = 01264-6) 0.2 MG/DL See_Comment [Automated message] The system which generated this result transmitted reference range: <=2.0 MG/DL. The reference range was not used to interpret this result as normal/abnormal. WHITE BLOOD CELLS (test code = 58339-1) 0-5 /HPF See_Comment [Automated message] The system which generated this result transmitted reference range: 0-5 /HPF. The reference range was not used to interpret this result as normal/abnormal. CALC LDL CHOL (test code = 26294-0) (NOTE) MG/DL See_Comment [Automated message] The system which generated this result transmitted reference range: <100 MG/DL. The reference range was not used to interpret this result as normal/abnormal. CHOLESTEROL (test code = 2093-3) 217 MG/DL See_Comment H [Automated message] The system which generated this result transmitted reference range: <200 MG/DL. The reference range was not used to interpret this result as normal/abnormal. HDL CHOLESTEROL (test code = 2085-9) 34 MG/DL See_Comment L [Automated message] The system which generated this result transmitted reference range: >39 MG/DL. The reference range was not used to interpret this result as normal/abnormal. RISK RATIO LDL/HDL (test code = 83405-0) (NOTE) RATIO See_Comment [Automated message] The system which generated this result transmitted reference range: <3.22 RATIO. The reference range was not used to interpret this result as normal/abnormal. TRIGLYCERIDES (test code = 2571-8) 734 MG/DL See_Comment H [Automated message] The system which generated this result transmitted reference range: <150 MG/DL. The reference range was not used to interpret this result as normal/abnormal. ALBUMIN (test code = 1751-7) 4.2 G/DL See_Comment [Automated message] The system which generated this result transmitted reference range: 3.5-5.2 G/DL. The reference range was not used to interpret this result as normal/abnormal. ALKALINE PHOSPHATASE (test code = 6768-6) 61 U/L See_Comment [Automated message] The system which generated this result transmitted reference range: 40-120 U/L. The reference range was not used to interpret this result as normal/abnormal. BILIRUBIN, TOTAL (test code = 1975-2) <0.2 MG/DL See_Comment [Automated message] The system which generated this result transmitted reference range: <=1.2 MG/DL. The reference range was not used to interpret this result as normal/abnormal. BUN (test code = 3094-0) 16 MG/DL See_Comment [Automated message] The system which generated this result transmitted reference range: 6-20 MG/DL. The reference range was not used to interpret this result as normal/abnormal. CALCIUM (test code = 13410-7) 8.8 MG/DL See_Comment [Automated message] The system which generated this result transmitted reference range: 8.5-10.5 MG/DL. The reference range was not used to interpret this result as normal/abnormal. CALC A/G RATIO (test code = 1759-0) 1.9 RATIO See_Comment [Automated message] The system which generated this result transmitted reference range: 1.0-2.6 RATIO. The reference range was not used to interpret this result as normal/abnormal. CALC BUN/CREAT (test code = 3097-3) 21 RATIO See_Comment [Automated message] The system which generated this result transmitted reference range: 6-28 RATIO. The reference range was not used to interpret this result as normal/abnormal. CALC GLOBULIN (test code = 83253-0) 2.2 G/DL See_Comment [Automated message] The system which generated this result transmitted reference range: 1.9-3.7 G/DL. The reference range was not used to interpret this result as normal/abnormal. CARBON DIOXIDE (test code = 1963-8) 26 MEQ/L See_Comment [Automated message] The system which generated this result transmitted reference range: 19-31 MEQ/L. The reference range was not used to interpret this result as normal/abnormal. CHLORIDE (test code = 5-0) 105 MEQ/L See_Comment [Automated message] The system which generated this result transmitted reference range: 95-107 MEQ/L. The reference range was not used to interpret this result as normal/abnormal. CREATININE (test code = 2160-0) 0.75 MG/DL See_Comment [Automated message] The system which generated this result transmitted reference range: 0.60-1.30 MG/DL. The reference range was not used to interpret this result as normal/abnormal. eGFR (2020 CKD-EPI) (test code = 84391-9) 99 ML/MIN/1.73 See_Comment [Automated message] The system which generated this result transmitted reference range: >60 ML/MIN/1.73. The reference range was not used to interpret this result as normal/abnormal. GLUCOSE (test code = 1558-6) 118 MG/DL See_Comment H [Automated message] The system which generated this result transmitted reference range: 70-99 MG/DL. The reference range was not used to interpret this result as normal/abnormal. POTASSIUM (test code = 2823-3) 4.2 MEQ/L See_Comment [Automated message] The system which generated this result transmitted reference range: 3.5-5.4 MEQ/L. The reference range was not used to interpret this result as normal/abnormal. PROTEIN, TOTAL (test code = 2885-2) 6.4 G/DL See_Comment [Automated message] The system which generated this result transmitted reference range: 6.1-8.3 G/DL. The reference range was not used to interpret this result as normal/abnormal. AST (test code = 1920-8) 20 U/L See_Comment [Automated message] The system which generated this result transmitted reference range: 9-40 U/L. The reference range was not used to interpret this result as normal/abnormal. ALT (test code = 1742-6) 23 U/L See_Comment [Automated message] The system which generated this result transmitted reference range: 5-40 U/L. The reference range was not used to interpret this result as normal/abnormal. SODIUM (test code = 2951-2) 142 MEQ/L See_Comment [Automated message] The system which generated this result transmitted reference range: 133-146 MEQ/L. The reference range was not used to interpret this result as normal/abnormal. BI ULTRASOUND BREAST LIMITED [id number] 19:16:09Examination:BI ULTRASOUND BREAST LIMITED BILATERAL History:Patient is [...] explained to the patient. Recommendation:Short interval follow-up mammogram 6 months - BilateralShort interval follow-up ultrasound 6 months - Bilateral ? BI-RADS Category: Both 3 - Probably Benign [facility] [id number] 00:00:00* Test Item Value Reference Range Interpretation Comme nts CULTURE, URINE (test code = 630-4) SPECIMEN NUMBER: [id number] A CBC W/AUTO [id number] 00:00:00* Test Item Value Reference Range Interpretation Comme nts NUCLEATED RBCS (test code = 19552-9) 0.0 /100 WBC'S See_Comment [Automated Zubka] The system which generated this result transmitted reference range: 0.0 /100 WBC'S. The reference range was not used to interpret this result as normal/abnormal. ABSOLUTE EOSINOPHILS (test code = 09814-1) 0.17 K/UL See_Comment [TapClicks] The system which generated this result transmitted reference range: 0.00-0.50 K/UL. The reference range was not used to interpret this result as normal/abnormal. ABSOLUTE LYMPHOCYTES (test code = 13801-5) 2.45 K/UL See_Comment [TapClicks] The system which generated this result transmitted reference range: 1.00-4.00 K/UL. The reference range was not used to interpret this result as normal/abnormal. ABSOLUTE MONOCYTES (test code = 12046-3) 0.48 K/UL See_Comment [Automated messa ge] The system which generated this result transmitted reference range: 0.2-3.8 K/UL. The reference range was not used to interpret this result as normal/abnormal. ABSOLUTE NEUTROPHILS (test code = 93242-6) 4.77 K/UL See_Comment [Automated messa ge] The system which generated this result transmitted reference range: 1.50-7.50 K/UL. The reference range was not used to interpret this result as normal/abnormal. BASOPHILS (test code = 10272-2) 0.5 % EOSINOPHILS (test code = 20835-4) 2.1 % HEMATOCRIT (test code = 81185-7) 45.3 % See_Comment H [Automated messa ge] [...] result as normal/abnormal. LYMPHOCYTES (test code = 83028-3) 30.9 % MCH (test code = 80049-1) 31.8 PG See_Comment [Automated messa ge] The system which generated this result transmitted reference range: 25.0-33.0 PG. The reference range was not used to interpret this result as normal/abnormal. MCHC (test code = 97339-4) 34.9 G/DL See_Comment [Automated messa ge] The system which generated this result transmitted reference range: 31.0-36.0 G/DL. The reference range was not used to interpret this result as normal/abnormal. MCV (test code = 58247-5) 91.1 fL See_Comment [Automated messa ge] The system which generated this result transmitted reference range: 80.0-99.0 fL. The reference range was not used to interpret this result as normal/abnormal. MONOCYTES (test code = 61862-2) 6.1 % NEUTROPHILS (test code = 19623-7) 60.1 % PLATELET COUNT (test code = 89192-5) 213 K/UL See_Comment [Automated messa ge] The system which generated this result transmitted reference range: 130-400 K/UL. The reference range was not used to interpret this result as normal/abnormal. RBC (test code = 10153-2) 4.97 M/UL See_Comment [Automated messa ge] The system which generated this result transmitted reference range: 3.80-5.40 M/UL. The reference range was not used to interpret this result as normal/abnormal. RDW (test code = 96930-8) 12.6 % See_Comment [Automated messa ge] The system which generated this result transmitted reference range: 11.5-15.0 %. The reference range was not used to interpret this result as normal/abnormal. WBC (test code = 09393-0) 7.9 K/UL See_Comment [Automated messa ge] The system which generated this result transmitted reference range: 3.5-11.0 K/UL. The reference range was not used to interpret this result as normal/abnormal. STREP A [id number] 00:00:00* Test Item Value Reference Range Interpretation Comme nts Result (test code = 98880-2) POSITIVE
[2024-09-24] MEDS ORDERED: KETOROLAC 30 MG/ML INJ ONE (08:19)
[2024-09-24] MEDS ORDERED: NA CHLORIDE 0.9% 1,000 ML ONE (08:19)
[2024-09-24 08:56] LABS: Sqamous Epithelial <5 /HPF (None Seen); Urine Bacteria None Seen /HPF (<20); Urine Bilirubin NEGATIVE (Negative); Urine Blood Negative (Negative); Urine Clarity Turbid (Clear); Urine Color Light-Yellow (Yellow); Urine Culture Reflex Order NOT NEEDED; Urine Glucose 1+ (Negative); Urine Ketones NEGATIVE (Negative); Urine Microscopic Reflex YN ORDER UMIC; Urine Mucus Slight /HPF (None Seen); Urine Nitrite NEGATIVE (Negative); Urine Protein NEGATIVE (Negative); Urine RBC <5 /HPF (None Seen); Urine Urobilinogen Normal (Normal); Urine WBC <5 /HPF (<5); Urine pH 6.5 (5.0-7.0)
[2024-09-24 09:01] LABS: Absolute Basophils 0.1 K/uL (0-0.5); Absolute Eosinophils 0.3 K/uL (0-0.5); Absolute Lymphocytes (CBC) 2.4 K/uL (0.7-4.9); Absolute Monocytes 0.3 K/uL (0.1-1.3); Absolute Neutrophil 3.3 K/uL (1.8-8.0); Basophils % 0.8 % (0-1.3); Eosinophils % 4.5 % (0-4.4); Hematocrit 43.2 % (36.0-45.0); Hemoglobin 15.4 g/dL (12.0-15.0); Lymphocytes % 37.7 % (15.3-44.8); MCH 33.1 pg (27.0-35.0); MCHC 35.6 g/dL (32.0-36.0); MCV 93.2 fL (80-100); MPV 8.7 fL (7.6-11.3); Monocytes % 4.4 % (3.3-12.3); Neutrophils % 52.6 % (41.7-73.7); Nucleated Red Blood Cells % 0.1 % (0-0); Platelets 206 thou/uL (152-406); RBC Red Blood Cell Count 4.63 M/uL (3.86-4.86); Red Cell Distribution Width 12.9 % (12.1-15.2)
[2024-09-24 09:27] LABS: Albumin 3.4 g/dL (3.4-5.0); Albumin/Globulin Ratio 0.8 (1.1-1.8); Bilirubin Total 0.3 mg/dL (0.2-1.0); Globulin 4.1 g/dL (2.3-3.5); Protein, Total 7.5 g/dL (6.4-8.2)
--- NOTE | 2024-09-24 10:20 | RAD REPORT ---
EXAMINATION: CT ABDOMEN AND PELVIS WITH CONTRAST CLINICAL INDICATION: Female, 48 years old.FLANK PAIN TECHNIQUE: CT abdomen and pelvis was performed, after the administration of IV contrast, as per [facility] protocol. Axial, sagittal and coronal reconstructions were obtained. One or more of the following dose reduction techniques were used: Automated exposure control, adjustment of the mA and/o r kV according to patient size, and/or iterative reconstruction. Unless otherwise specified, incidental findings do not require dedicated imaging follow-up. [id number]. COMPARISON: 03/14/2024 FINDINGS: LOWER CHEST: No acute process identified.No significant pericardial effusion. UPPER GI: No significant abnormality. LIVER: Benign-appearing lesions in the liver consistent with hemangiomas. Hepatic steatosis GALLBLADDER/BILE DUCTS: No biliary ductal dilatation.? PANCREAS: No mass, ductal dilation, or maritza-pancreatic fluid. SPLEEN: Unremarkable. ADRENALS: No adrenal masses. KIDNEYS AND URETERS: No hydronephrosis. ABDOMINAL AORTA AND OTHER VESSELS: Normal caliber aorta and IVC. PERITONEUM: No abnormal free fluid. No free air. LYMPH NODES: No pathologic lymphadenopathy. ABDOMINAL WALL: Unremarkable SMALL BOWEL/COLON: Small bowel has normal course and caliber. No colonic wall thickening or pericolon ic inflammatory changes.Normal appendix. URINARY BLADDER: Underdistended but grossly unremarkable. REPRODUCTIVE ORGANS: No pathologic process. MUSCULOSKELETAL: ADDITIONAL FINDINGS: None. IMPRESSION: No acute or significant abnormalities seen in the abdomen or pelvis. Normal appendix. No urinary trac t calculi or hydronephrosis.
--- NOTE | 2024-09-24 10:58 | EDPHYS ---
Physician Documentation [facility] Name: Kristen Yadav Age: 48 yrs Sex: Female : 1975 Arrival Date: 09/24/2024 Time: 07:39 Bed 19 Private MD: ED Physician Glen Bain HPI: 09/24 08:15 This 48 yrs old Female presents to ER via Ambulatory with complaints of Urinary Problem.rt 08:15 Patient presents to the ED with urinary frequency for the past 3 days. Patient called rt her physician, was called in Macrobid and took 1 dose of it last night. Patient states that she woke up this morning not feeling any better, stating that she has pain to the low back as well as to the left flank with associated reported bloating. Denies nausea, vomiting, fever, chills. Denies other acute complaints at this time, symptoms are moderate in severity, no other aggravating alleviating factors.. 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 - Infectious Disease History:: Denies. - Social history:: Smoking status: Patient denies any tobacco usage or history of. - Family history:: not pertinent. ROS: 08:15 Constitutional: Negative for fever, chills, and weight loss, Cardiovascular: Negative rt for chest pain, palpitations, and edema, Respiratory: Negative for shortness of breath, cough, wheezing, and pleuritic chest pain, Abdomen/GI: Negative for abdominal pain, nausea, vomiting, diarrhea, and constipation, MS/Extremity: Negative for injury and deformity, Skin: Negative for injury, rash, and discoloration, Neuro: Negative for headache, weakness, numbness, tingling, and seizure, 08:15 : Positive for flank pain, urinary frequency, Exam: 08:15 Constitutional: This is a well developed, well nourished patient who is awake, alert, rt and in no acute distress. Head/Face: Normocephalic, atraumatic. Chest/axilla: Normal chest wall appearance and motion. Nontender with no deformity. No lesions are appreciated. Cardiovascular: Regular rate and rhythm with a normal S1 and S2. No gallops, murmurs, or rubs. Normal PMI, no JVD. No pulse deficits. Respiratory: Lungs have equal breath sounds bilaterally, clear to auscultation and percussion. No rales, rhonchi or wheezes noted. No increased work of breathing, no retractions or nasal flaring. Abdomen/GI: Soft, non-tender, with normal bowel sounds. No distension or tympany. No guarding or rebound. No evidence of tenderness throughout. Skin: Warm, dry with normal turgor. Normal color with no rashes, no lesions, and no evidence of cellulitis. MS/ Extremity: Pulses equal, no cyanosis. Neurovascular intact. Full, normal range of motion. Neuro: Awake and alert, GCS 15, oriented to person, place, time, and situation. Cranial nerves II-XII grossly intact. Motor strength 5/5 in all extremities. Sensory grossly intact. Cerebellar exam normal. Normal gait. Vital Signs: 08:05 BP 150 / 87; Pulse 86; Resp 18; Temp 98.3(O); Pulse Ox 99% on R/A; Weight 79.38 kg; ap3 Height 5 ft. 3 in. ; Pain 5/10; 10:35 BP 135 / 79; Pulse 60; Resp 18 S; Pulse Ox 98% on R/A; aa5 08:05 Body Mass Index 31.00 (79.38 kg, 160.02 cm) ap3 08:05 Pain Scale: Adult ap3 MDM: 08:01 Medical Screening Exam initiated rt 14:12 Differential Diagnosis Mechanical back pain, pyelonephritis, UTI, kidney stone. Data rt reviewed: vital signs, nurses notes, lab test result(s), radiologic studies. I considered the following discharge prescriptions or medication management in the emergency department Medications were administered in the Emergency Department. See MAR. Independent interpretation of the following test(s) in the Emergency Department CT Scan: My interpretation is No ureteral stone seen on interpretation of CT scan images. Care significantly affected by the following chronic conditions: Diabetes, Hypertension. Counseling: I had a detailed discussion with the patient and/or guardian regarding the historical points, exam findings, and any diagnostic results supporting the discharge/admit diagnosis, lab results, radiology results, the need for outpatient follow up, to return to the emergency department if symptoms worsen or persist or if there are any questions or concerns that arise at home. Response to treatment: the patient's symptoms have markedly improved after treatment. 09/24 08:10 Order name: CBC with Diff; Complete Time: rt 09/24 08:10 Order name: CMP; Complete Time: rt 09/24 08:10 Order name: Lipase; Complete Time: rt 09/24 08:10 Order name: Urinalysis w/ reflexes; Complete Time: rt 09/24 08:10 Order name: CT Abd/Pelvis - IV Contrast Only; Complete Time: rt 09/24 08:10 Order name: IV Saline Lock; Complete Time: rt 09/24 08:10 Order name: Labs collected and sent; Complete Time: rt Administered Medications: 08:28 Drug: TORadol - Ketorolac IVP 15 mg IVP once Route: IVP; Site: right antecubital; aa5 11:05 Follow up: Response: No adverse reaction; Pain is decreased ap3 08:28 Drug: NS 0.9% IV 1000 ml IV at 1 bolus Per protocol; to be given as a bolus over 60 aa5 minutes Route: IV; Rate: 1 bolus; Site: right antecubital; 11:05 Follow up: IV Status: Completed infusion; IV Intake: 1000ml ap3 Disposition Summary: 09/24/24 10:57 Discharge Ordered Notes: Location: Home rt Problem: new rt Symptoms: have improved rt Condition: Stable rt Diagnosis - Low back pain rt - Dysuria rt Followup: rt - With: Private Physician - When: 2 - 3 days - Reason: Discharge Instructions: - Discharge Summary Sheet rt - Acute Back Pain, Adult rt - Dysuria rt Forms: - Medication Reconciliation Form rt - Antibiotic Education rt - Prescription Opioid Use rt - Patient Portal Instructions rt - Leadership Thank You Letter rt Prescriptions: - Cyclobenzaprine 10 mg Oral tablet - take 1 tablet ORAL route every 8 hours As needed; 15 tablet; Refills: 0, rt Product Selection Permitted Signatures: Dispatcher [employer] EDGA Judith Topete, RN RN aa5 Mireya Menchaca RN RN ap3 Glen Bain MD MD rt Corrections: (The following items were deleted from the chart) 08: 08:11 CBC+H.LAB.BRZ ordered. EDMS EDMS 08: 08:11 COMPREHENSIVE METABOLIC PANEL+C.LAB.BRZ ordered. EDMS EDMS 08: 08:11 LIPASE+C.LAB.BRZ ordered. EDMS EDMS 08: 08:11 Urinalysis+U.LAB.BRZ ordered. EDMS EDMS 08: 08:11 Abdomen Pelvis W Con+CT.RAD.BRZ ordered. EDMS EDMS
--- NOTE | 2024-09-24 10:58 | ER ---
Nurse's Notes [facility] Name: Kristen Yadav Age: 48 yrs Sex: Female : 1975 Arrival Date: 09/24/2024 Time: 07:39 Bed 19 Private MD: Diagnosis: Low back pain;Dysuria Presentation: 09/24 08:05 Chief complaint: Patient states: she started having urinary problems Friday09/21/24. ap3 patient did teledoc and was prescribed macrobid, taking her first dose last night. patient reports her symptoms of frequent urination are not improved this morning. patient also complains of low back pain and bloating. Coronavirus screen: At this time, the client does not indicate any symptoms associated with coronavirus-19. Ebola Screen: No symptoms or risks identified at this time. Initial Sepsis Screen: Does the patient meet any 2 criteria? No. Patient's initial sepsis screen is negative. Does the patient have a suspected source of infection? No. Patient's initial sepsis screen is negative. Risk Assessment: Do you want to hurt yourself or someone else? Patient reports no desire to harm self or others. Onset of symptoms was September 21, 2024. 08:05 Method Of Arrival: Ambulatory ap3 08:05 Acuity: ELINA 3 ap3 Triage Assessment: 08:08 General: Appears in no apparent distress. Behavior is calm, cooperative, appropriate ap3 for age. Pain: Complains of pain in low back area Pain currently is 5 out of 10 on a pain scale. Neuro: Level of Consciousness is awake, alert, obeys commands, Oriented to person, place, time, situation. Cardiovascular: Patient's skin is warm and dry. Respiratory: Airway is patent Respiratory effort is even, unlabored, Respiratory pattern is regular, symmetrical. : Reports urinary frequency. 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 - Infectious Disease History:: Denies. - Social history:: Smoking status: Patient denies any tobacco usage or history of. - Family history:: not pertinent. Screenin:09 [facility] ED Fall Risk Assessment (Adult) History of falling in the last 3 months, ap3 including since admission No falls in past 3 months (0 pts) Confusion or Disorientation No (0 pts) Intoxicated or Sedated No (0 pts) Impaired Gait No (0 pts) Mobility Assist Device Used No (0 pt) Altered Elimination No (0 pt) Score/Fall Risk Level 0 - 2 = Low Risk Oriented to surroundings, Maintained a safe environment, Educated pt \T\ family on fall prevention, incl call for assistance when getting out of bed, Assessed \T\ reinforced patient's understanding of fall precautions, Hourly rounding (assess needs \T\ fall precautionary measures) done, Used ambulatory aids as needed (educated on \T\ assisted with), Used gait belt as appropriate. Abuse screen: Denies threats or abuse. Nutritional screening: No deficits noted. Tuberculosis screening: No symptoms or risk factors identified. Assessment: 08:15 General: Appears uncomfortable, Behavior is calm, cooperative. Pain: Complains of pain aa5 in low back area Pain currently is 5 out of 10 on a pain scale. Quality of pain is described as aching, Pain began 2-3 days ago. Is continuous. Neuro: Level of Consciousness is awake, alert, obeys commands, Oriented to person, place, time, situation. Cardiovascular: Patient's skin is warm and dry. Respiratory: Airway is patent Respiratory effort is even, unlabored, Respiratory pattern is regular, symmetrical. GI: Abdomen is round Reports bloating. : Reports urgency, urinary frequency. EENT: No signs and/or symptoms were reported regarding the EENT system. Derm: Skin is pink, warm \T\ dry. Musculoskeletal: Range of motion: intact in all extremities. 10:35 Reassessment: Patient is alert, oriented x 3, equal unlabored respirations, skin aa5 warm/dry/pink. Vital Signs: 08:05 BP 150 / 87; Pulse 86; Resp 18; Temp 98.3(O); Pulse Ox 99% on R/A; Weight 79.38 kg; ap3 Height 5 ft. 3 in. ; Pain 5/10; 10:35 BP 135 / 79; Pulse 60; Resp 18 S; Pulse Ox 98% on R/A; aa5 08:05 Body Mass Index 31.00 (79.38 kg, 160.02 cm) ap3 08:05 Pain Scale: Adult ap3 ED Course: 07:41 Patient arrived in ED. im 07:41 Glen Bain MD is Attending Physician. rt 07:59 Judith Topete, SANYA is Primary Nurse. aa5 08:07 Triage completed. ap3 08:10 Arm band placed on right wrist. ap3 08:15 Patient has correct armband on for positive identification. Bed in low position. Call aa5 light in reach. Side rails up X 1. Pulse ox on. NIBP on. 08:17 Urine collected: urine sent to lab. aa5 08:19 Initial lab(s) drawn, by me, sent to lab. Inserted saline lock: 20 gauge in right aa5 antecubital area, using aseptic technique. Blood collected. Flushed with 10 mL NS. 09:57 CT Abd/Pelvis - IV Contrast Only In Process Unspecified. EDMS 11:05 Provided Education on: discharge instructions . ap3 11:05 No provider procedures requiring assistance completed. IV discontinued, intact, ap3 bleeding controlled, No redness/swelling at site. Pressure dressing applied. Administered Medications: 08:28 Drug: TORadol - Ketorolac IVP 15 mg IVP once Route: IVP; Site: right antecubital; aa5 11:05 Follow up: Response: No adverse reaction; Pain is decreased ap3 08:28 Drug: NS 0.9% IV 1000 ml IV at 1 bolus Per protocol; to be given as a bolus over 60 aa5 minutes Route: IV; Rate: 1 bolus; Site: right antecubital; 11:05 Follow up: IV Status: Completed infusion; IV Intake: 1000ml ap3 Medication: 08:29 VIS not applicable for this client. aa5 Intake: 11:05 IV: 1000ml; Total: 1000ml. ap3 Outcome: 10:57 Discharge ordered by . rt 11:05 Discharged to home ambulatory, ap3 11:05 Condition: good 11:05 Discharge instructions given to patient, Instructed on discharge instructions, follow up and referral plans. medication usage, Demonstrated understanding of instructions, follow-up care, medications, Prescriptions given X 1, 11:06 Patient left the ED. ap3 Signatures: Dispatcher [employer] EDJudith Solorio RN RN aa5 Mireya Menchaca RN RN ap3 Glen Bain MD MD Mikala Wilson
[2024-09-24 12:22] VITALS: TEMP 98.3
[2024-09-24 12:23] VITALS: BP 135/79; O2SAT 98
== END 2024-09-24 11:06 | disposition home or self-care (01) ==
LOC: ER 07:39
DX: M54.50 Low back pain, unspecified (principal); R30.0 Dysuria; E11.9 Type 2 diabetes mellitus without complications; I10 Essential (primary) hypertension
CPT/HCPCS: 96361; 85025; 81001; 36415; 83690; 80053; 74177; 96374; 99284; Q9967; J7030